=== PATIENT | female | born 1945 | race Caucasian/White ===

== ENCOUNTER 2016-10-09 23:24 | Inpatient (IN) | payer MEDICARE, OTHER ==
[~2016-10-09] VITALS: Ht 157.5 cm; Wt 67.2 kg
[~2016-10-09 23:24] MED LIST: AMLO5TAB22 PO; ASPI81 PO; ATOR40TA49 PO; CALC600T34 PO; CILO100T PO; GABA100C4 PO; GEMF600T PO; IPRA0.02 NEB; LEVA0.6316 NEB; LISI-363 PO; OMEP20TA OR; SPIRCAP INH; VENL-39 PO; VITA10004 PO; VITA20002 PO; WALKER STANDARD
[2016-10-09 23:27] VITALS: BP 122/74; PULSE 97; RESP 20; TEMP 98; O2SAT 94
[2016-10-10 00:15] VITALS: O2SAT 97
[2016-10-10] MEDS ORDERED: SODIUM CHLORIDE 0.9% FLUSH 10 ML FLUSH IVF PRN (00:15)
[2016-10-10] MEDS ORDERED: RESP: IPRATROPIUM 0.5 MG/2.5 ML NEB NEB ONE ×3 (00:15)
[2016-10-10] MEDS ORDERED: methylPREDNISolone SOD SUCC 125 MG/2 ML VIAL IVP ONE (00:15)
[2016-10-10] MEDS ORDERED: RESP: ALBUTEROL 2.5 MG/IPRATROPIUM 0.5 MG NEB (SCH) INH (00:15)
[2016-10-10 00:35] LABS: BASOPHIL # 0.1 TH/MM3 (0-0.2); BASOPHIL % 1.1 % (0.0-2.0); EOSINOPHIL # 0.8 TH/MM3 (0-0.4); EOSINOPHIL % 6.7 % (0.0-4.0); HEMATOCRIT 41.4 % (35.0-46.0); HEMO FLAGS DIFF FINAL; LYMPHOCYTE # 4.3 TH/MM3 (1.0-4.8); MEAN CELL VOLUME 90.3 FL (80.0-100.0); MEAN CORPUSCULAR HGB CONC 33.3 % (32.0-36.0); MONO % 9.8 % (0.0-8.0); NEUT % 44.4 % (16.0-70.0); PLATELET COUNT 350 TH/MM3 (150-450); RED BLOOD COUNT 4.59 MIL/MM3 (4.00-5.30); RED CELL DISTRIBUTION WIDTH 13.5 % (11.6-17.2); WHITE BLOOD COUNT 11.3 TH/MM3 (4.0-11.0)
--- NOTE | 2016-10-10 00:44 | RADRPT ---
EXAM DATE/TIME: 10/10/2016 00:36 [place] COMPARISON: CHEST SINGLE AP, March 24, 2016, 12:16. INDICATIONS : Shortness of breath. MEDICAL HISTORY : None. SURGICAL HISTORY : None. ENCOUNTER: Initial ACUITY: 1 day PAIN SCORE: 0/10 LOCATION: Bilateral chest FINDINGS: A single view of the chest demonstrates the lungs to be symmetrically aerated without evidence of mas s, infiltrate or effusion. The cardiomediastinal contours are unremarkable. Osseous structures are intact. CONCLUSION: No acute disease. David Godinez MD on October 10, 2016 at 0:43 Board Certified Radiologist. This report was verified electronically.
[2016-10-10 00:45] LABS: APTT (PATIENT) 27.7 SEC (24.3-30.1); PROTHROMBIN TIME - PATIENT 10.7 SEC (9.8-11.6)
[2016-10-10 00:49] LABS: ALT (GPT) 65 U/L (10-53); ANION GAP 8 MEQ/L (5-15); AST (GOT) 38 U/L (15-37); BICARBONATE 28.2 MEQ/L (21.0-32.0); BLOOD UREA NITROGEN 12 MG/DL (7-18); CHLORIDE 104 MEQ/L (98-107); GLOMERULAR FILTRATION RATE 74 ML/MIN (>89); POTASSIUM 3.6 MEQ/L (3.5-5.1); SODIUM (NA) 140 MEQ/L (136-145)
[2016-10-10 00:53] LABS: ALKALINE PHOSPHATASE 138 U/L (45-117); TOTAL BILIRUBIN ADULT 0.3 MG/DL (0.2-1.0)
[2016-10-10 00:57] LABS: CREATINE KINASE 92 U/L (26-192)
--- NOTE | 2016-10-10 01:28 | PD ---
HPI Chief Complaint: Respiratory Symptoms Time Seen by Provider: 00:10 Travel History International Travel<30 days: No Contact w/Intl Traveler<30days: No Traveled to known affect area: No History of Present Illness HPI Patient is a 71-year-old female who presents to emergency room with complaints of COPD exacerbation. Patient reports that she fell 2 days ago out of bed and landed her buttocks, she has a fracture to her lumbar spine. Patient reports that because she's had severe pain to her low back, she has exacerbation of COPD. Patient reports that she has shortness of breath and wheezing over the past 2 days. Denies cough or congestion, denies chest pain, no sick contacts. PFSH Past Medical History Cancer: No Cardiac Catheterization: Yes Cardiovascular Problems: Yes (STENTx1) High Cholesterol: Yes COPD: Yes Diabetes: No Diminished Hearing: No Diverticulitis: No Endocrine: No Gastrointestinal Disorders: Yes (GERD) GERD: Yes Genitourinary: Yes (RECENT UTI) Hepatitis: No Hiatal Hernia: No Hypertension: Yes Immune Disorder: No Medical other: Yes (FIBROMYALGIA) Musculoskeletal: Yes (NECK AND BACK PAIN ; FIBROMYALGIA) Neurologic: No Psychiatric: Yes Respiratory: Yes (COPD) Immunizations Current: Yes Thyroid Disease: No Tetanus Vaccination: Unknown Influenza Vaccination: Yes Menopausal: Yes Past Surgical History Abdominal Surgery: Yes (AGE 11 APPENDECTOMY) Body Medical Devices: CARDIAC STENT Cardiac Surgery: Yes (HEART CATH INSERTION STENT; RT LOWER EXTREMITY FEMOROPOPLITEAL BYPASS) Coronary Stent: Yes (X1 CIRC 1999) Gynecologic Surgery: Yes (ISRA SALPINGO-OOPHORECTOMY) Hysterectomy: Yes (PARTIAL) Oral Surgery: Yes (SINSUS SX) Other Surgery: Yes (fem-pop right 2001) Social History Alcohol Use: No (rare) Tobacco Use: No (1/2 PPD x 48+ years) Substance Use: No Allergies-Medications (Allergen,Severity, Reaction): Coded Allergies: Advair (Verified Allergy, Severe, 10/10/16) SHAKING ALL OVER; INCREASE BLOOD PRESSURE ; SEVERE REACTION Albuterol (Verified Allergy, Severe, SHAKES & HIGH BP, 10/10/16) SEVERE REACTION Quinolones (Verified Allergy, Severe, 10/10/16) SHAKES ALL OVER; ELEVATED BLOOD PRESSURE Serevent (Verified Allergy, Severe, 10/10/16) SHAKES ALL OVER; ELEVATES BLOOD PRESSURE; SEVERE REACTION Sulfa (Verified Allergy, Severe, HIVES, 10/10/16) HIVES; THROAT SWELLING; SEVERE REACTION Reported Meds & Prescriptions Reported Meds & Active Scripts Active Walker Standard (Device) Device 1 Ea Reported Gabapentin 100 Mg Cap 100 Mg PO DAILY Amlodipine Besylate 5 mg (Amlodipine Besylate) 5 Mg Tab 1 Tab PO DAILY Vitamin B-12 Cr (Cyanocobalamin) 1 000 Tab 1 Tab PO DAILY Xopenex (Levalbuterol HCl) 0.63 Mg Neb 0.63 Mg NEB DIRECTED Ipratropium Gustine Patricia 1 Amp NEB DIRECTED NEBULIZER NEEDED ; IPRATROPIUM BROMIDE WITH XOPENAX 0.63% Spiriva Handihaler (Tiotropium Gustine) 18 Mcg Cap 1 Dose INH DAILY DO NOT SWALLOW CAPSULES Cilostazol 100 Mg Tab 100 Mg PO DAILY Lipitor 40 Mg Tab (Atorvastatin Calcium) 40 Mg Tab 40 Mg PO DAILY Vitamin D-3 (Cholecalciferol) 2 000 Tab 2,000 Unit PO DAILY Gemfibrozil 600 Mg Tab 600 Mg PO DAILY Lisinopril 20 mg (Lisinopril) 20 Mg Tab 20 Mg PO DAILY Venlafaxine Hcl Er (Venlafaxine HCl) 75 Mg Tab 150 Mg PO DAILY Calcium 600 Mg Tab 600 Mg PO DAILY Omeprazole 20 mg (Omeprazole) 20 Mg Tab 20 Mg OR DAILY Aspirin 81 Mg Tab 81 Mg PO DAILY Review of Systems General / Constitutional: No: Fever Eyes: No: Visual changes HENT: No: Headaches Cardiovascular: No: Chest Pain or Discomfort Respiratory: Positive: Cough, Shortness of Breath, Wheezing Gastrointestinal: No: Abdominal Pain Genitourinary: No: Dysuria Musculoskeletal: No: Pain Skin: No Rash Neurologic: No: Weakness Psychiatric: No: Depression Endocrine: No: Polydipsia Hematologic/Lymphatic: No: Easy Bruising Physical Exam Narrative GENERAL: Moderate distress SKIN: Warm and dry. HEAD: Atraumatic. Normocephalic. EYES: Pupils equal and round. No scleral icterus. No injection or drainage. ENT: No nasal bleeding or discharge. Mucous membranes pink and moist. NECK: Trachea midline. No JVD. CARDIOVASCULAR: Regular rate and rhythm. No murmur appreciated. RESPIRATORY: Positive accessory muscle use. Patient with diffuse wheezing on exam GASTROINTESTINAL: Abdomen soft, non-tender, nondistended. Hepatic and splenic margins not palpable. MUSCULOSKELETAL: No obvious deformities. No clubbing. No cyanosis. No edema. NEUROLOGICAL: Awake and alert. No obvious cranial nerve deficits. Motor grossly within normal limits. Normal speech. PSYCHIATRIC: Appropriate mood and affect; insight and judgment normal. Data Data Last Documented VS Vital Signs Date Time Temp Pulse Resp B/P Pulse Ox O2 Delivery O2 Flow Rate FiO2 10/10/16 00:15 97 Nasal Cannula 2 10/09/16 23:27 98.0 97 20 122/74 Orders Complete Blood Count With Diff (10/10/16:11) Comprehensive Metabolic Panel (10/10/16:11) B-Type Natriuretic Peptide (10/10/16:11) Act Partial Throm Time (Ptt) (10/10/16:) Prothrombin Time / Inr (Pt) (10/10/16:) Magnesium (Mg) (10/10/16:11) Ckmb (Isoenzyme) Profile (10/10/16:11) Troponin I (10/10/16:) Arterial Blood Gas (Abg) (10/10/16:) Urinalysis - C+S If Indicated (10/10/16:11) Influenzae A/B Antigen (10/10/16:11) Blood Culture (10/10/16:11) Iv Access Insert/Monitor (10/10/16:11) Electrocardiogram (10/10/16:11) Ecg Monitoring (10/10/16:11) Oximetry (10/10/16:11) Oxygen Administration (10/10/16:11) Chest, Single Ap (10/10/16:11) Sodium Chloride 0.9% Flush (Ns Flush) (10/10/16:15) Methylprednisolone So Succ Inj (Solumedr (10/10/16 00:15) Albuterol-Ipratropium Neb (Duoneb Neb) (10/10/16 00:15) Ipratropium Neb (Atrovent Neb) (10/10/16 00:15) Ipratropium Neb (Atrovent Neb) (10/10/16 00:15) Ipratropium Neb (Atrovent Neb) (10/10/16 00:15) Lactic Acid Sepsis Protocol (3/23/17 00:17) Labs Laboratory Tests Test 10/10/16 00:15 White Blood Count 11.3 TH/MM3 Red Blood Count 4.59 MIL/MM3 Hemoglobin 13.8 GM/DL Hematocrit 41.4 % Mean Corpuscular Volume 90.3 FL Mean Corpuscular Hemoglobin 30.0 PG Mean Corpuscular Hemoglobin 33.3 % Concent Red Cell Distribution Width 13.5 % Platelet Count 350 TH/MM3 Mean Platelet Volume 7.5 FL Neutrophils (%) (Auto) 44.4 % Lymphocytes (%) (Auto) 38.0 % Monocytes (%) (Auto) 9.8 % Eosinophils (%) (Auto) 6.7 % Basophils (%) (Auto) 1.1 % Neutrophils # (Auto) 5.0 TH/MM3 Lymphocytes # (Auto) 4.3 TH/MM3 Monocytes # (Auto) 1.1 TH/MM3 Eosinophils # (Auto) 0.8 TH/MM3 Basophils # (Auto) 0.1 TH/MM3 CBC Comment DIFF FINAL Differential Comment Prothrombin Time 10.7 SEC Prothromb Time International 1.0 RATIO Ratio Activated Partial 27.7 SEC Thromboplast Time Sodium Level 140 MEQ/L Potassium Level 3.6 MEQ/L Chloride Level 104 MEQ/L Carbon Dioxide Level 28.2 MEQ/L Anion Gap 8 MEQ/L Blood Urea Nitrogen 12 MG/DL Creatinine 0.77 MG/DL Estimat Glomerular Filtration 74 ML/MIN Rate Random Glucose 81 MG/DL Lactic Acid Level 2.0 mmol/L Calcium Level 9.8 MG/DL Magnesium Level 2.0 MG/DL Total Bilirubin 0.3 MG/DL Aspartate Amino Transf 38 U/L (AST/SGOT) Alanine Aminotransferase 65 U/L (ALT/SGPT) Alkaline Phosphatase 138 U/L Total Creatine Kinase 92 U/L Troponin I LESS THAN 0.02 NG/ML B-Type Natriuretic Peptide 8 PG/ML Total Protein 8.2 GM/DL Albumin 4.0 GM/DL MDM Medical Decision Making Medical Screen Exam Complete: Yes Emergency Medical Condition: Yes Interpretation(s) EKG at 0023: NSR at 88bpm, qt/qtc: 353/399, no acute st or t wave changes Vital Signs Date Time Temp Pulse Resp B/P Pulse Ox O2 Delivery O2 Flow Rate FiO2 10/10/16 00:15 97 Nasal Cannula 2 10/10/16 00:13 98 Nasal Cannula 2 10/09/16 23:27 98.0 97 20 122/74 94 Room Air Differential Diagnosis COPD exacerbation, pneumonia, influenza, pneumothorax, arrhythmia, ACS Narrative Course Patient is a 71-year-old female who presents to emergency room with complaints of COPD exacerbation over the past 2 days. Patient was hypoxic upon presentation to emergency room with a pulse ox of 94% with increased work of breathing. She has an allergy to albuterol, patient was given 3 Atrovent and reports that she is feeling better at this time. X-ray chest ordered to evaluate for possible pneumonia. X-ray chest with no obvious pneumonia or infiltrates. EKG benign with no ST or T-wave changes. CBC & BMP Diagram 10/10/16 00:15 Last Impressions Chest X-Ray 10/10/16 0011 Signed Impressions: Service Date/Time: September 00:36 - CONCLUSION: No acute disease. David Godinez MD Microbiology Date/Time Procedure Status Source Growth 10/10/16 00:10 Aerobic Blood Culture Received Blood Peripheral Pending 10/10/16 00:10 Anaerobic Blood Culture Received Blood Peripheral Pending 10/10/16 00:15 Aerobic Blood Culture Received Blood Peripheral Pending 10/10/16 00:15 Anaerobic Blood Culture Received Blood Peripheral Pending 10/10/16 00:49 Influenza Types A,B Antigen (BRIANA) Received Nasal Aspirate Pending Blood cultures pending, lactate 2.0, patient with COPD exacerbation, will obs for serial breathing treatments as well as for IV steroids. Physician Communication Physician Communication Discussed case with Jared BARNES who accepts pt to service under Dr. [place] Diagnosis Primary Impression: Hypoxia Additional Impression: COPD exacerbation Admitting Information Admitting Physician Requests: Ryanne Gillespie DO Oct 10, 2016 01:28
[2016-10-10 01:31] LABS: BLOOD GAS BASE EXCESS -1.7 mmol/L (-2-2); BLOOD GAS CARBOXYHEMOGLOBIN 1.2 % (0-4); BLOOD GAS HCO3 22 mmol/L (22-26); BLOOD GAS METHEMOGLOBIN 0.8 % (0-2); BLOOD GAS O2 HGB SATURATION 93 % (90-100); BLOOD GAS OXYGEN CONTENT 18.1 Vol % (12.0-20.0); BLOOD GAS PCO2 36 mmHg (38-42); BLOOD GAS PO2 72 mmHg (61-120); BLOOD GAS TOTAL HGB 13.8 G/DL (12.0-16.0); TEMP CORR TO 98.6
[2016-10-10 01:32] LABS: CRITICAL VALUE NO; FIO2 21 %; NUMBER OF ARTERIAL PUNCTURES 1; OXYGEN DEVICE RA
[2016-10-10 01:33] LABS: DRAW SITE RT RADIAL; STAT YES; ULNAR PULSE PRESENT
[2016-10-10] MEDS ORDERED: SODIUM CHLORIDE 0.9% FLUSH 10 ML FLUSH IV FLUSH PRN (02:15)
[2016-10-10] MEDS ORDERED: RESP: IPRATROPIUM 0.5 MG/2.5 ML NEB INH PRN (02:15)
[2016-10-10] MEDS ORDERED: RESP: ALBUTEROL 2.5 MG/3 ML NEB (PRN) INH (02:15)
[2016-10-10] MEDS: RESP: IPRATROPIUM 0.5 MG/2.5 ML NEB INH SCH ×2 (03:49→10:10)
[2016-10-10] MEDS: ACETAMINOPHEN 325 MG TAB PO PRN (03:57)
[2016-10-10 04:30] VITALS: BP 113/66; PULSE 97; PULSE 98; RESP 24; O2SAT 94
[2016-10-10] MEDS ORDERED: GABA100C4 PO (05:55)
[2016-10-10] MEDS ORDERED: LIPI40TA PO (05:55)
[2016-10-10] MEDS ORDERED: VENL75TA PO (05:55)
[2016-10-10] MEDS ORDERED: CYAN100015 BUCCAL (05:55)
[2016-10-10] MEDS ORDERED: ASPI81CH CHEW (05:55)
[2016-10-10] MEDS ORDERED: CALC500T37 PO (05:55)
[2016-10-10] MEDS ORDERED: CILO100T PO (05:55)
[2016-10-10] MEDS ORDERED: CHOL20005 PO (05:55)
[2016-10-10] MEDS ORDERED: GEMF600T PO (05:55)
[2016-10-10] MEDS ORDERED: LISI-515 PO (05:55)
[2016-10-10] MEDS ORDERED: AMLO5TAB2 PO (05:55)
[2016-10-10] MEDS ORDERED: OMEP20TA PO (05:55)
[2016-10-10] MEDS ORDERED: methylPREDNISolone SOD SUCC 125 MG/2 ML VIAL IVP SCH (06:00)
[2016-10-10 08:00] VITALS: BP 118/78; PULSE 115; RESP 22; O2SAT 95
--- NOTE | 2016-10-10 10:06 | HHI.HP ---
[facility] Jared Squires M.D. Admission Diagnosis COPD Exacerbation Diagnoses: Travel History International Travel<30 Days: No Contact w/Intl Traveler <30 Da: No Traveled to Known Affected Are: No Past Family Social History Allergies: Coded Allergies: Advair (Verified Allergy, Severe, 10/10/16) SHAKING ALL OVER; INCREASE BLOOD PRESSURE ; SEVERE REACTION Albuterol (Verified Allergy, Severe, SHAKES & HIGH BP, 10/10/16) SEVERE REACTION Quinolones (Verified Allergy, Severe, 10/10/16) SHAKES ALL OVER; ELEVATED BLOOD PRESSURE Serevent (Verified Allergy, Severe, 10/10/16) SHAKES ALL OVER; ELEVATES BLOOD PRESSURE; SEVERE REACTION Sulfa (Verified Allergy, Severe, HIVES, 10/10/16) HIVES; THROAT SWELLING; SEVERE REACTION Physical Exam Vital Signs Vital Signs Date Time Temp Pulse Resp B/P Pulse Ox O2 Delivery O2 Flow Rate FiO2 10/10/16 08:00 115 22 118/78 95 Room Air 10/10/16 05:03 16 10/10/16 04:30 98 24 113/66 94 Room Air 10/10/16 00:15 97 Nasal Cannula 2 10/10/16 00:13 98 Nasal Cannula 2 10/09/16 23:27 98.0 97 20 122/74 94 Room Air Physical Exam GENERAL: This is a well-nourished, well-developed patient, in no apparent distress. SKIN: No rashes, ecchymoses or lesions. Cool and dry. HEAD: Atraumatic. Normocephalic. No temporal or scalp tenderness. EYES: Pupils equal round and reactive. Extraocular motions intact. No scleral icterus. No injection or drainage. ENT: Nose without bleeding, purulent drainage or septal hematoma. Throat without erythema, tonsillar hypertrophy or exudate. Uvula midline. Airway patent. NECK: Trachea midline. No JVD or lymphadenopathy. Supple, nontender, no meningeal signs. CARDIOVASCULAR: Regular rate and rhythm without murmurs, gallops, or rubs. RESPIRATORY: Clear to auscultation. Breath sounds equal bilaterally. No wheezes , rales, or rhonchi. GASTROINTESTINAL: Abdomen soft, non-tender, nondistended. No hepato-splenomegaly , or palpable masses. No guarding. MUSCULOSKELETAL: Extremities without clubbing, cyanosis, or edema. No joint tenderness, effusion, or edema noted. No calf tenderness. Negative Homans sign bilaterally. NEUROLOGICAL: Awake and alert. Cranial nerves II through XII intact. Motor and sensory grossly within normal limits. Five out of 5 muscle strength in all muscle groups. Normal speech. Laboratory Laboratory Tests Test 10/10/16 10/10/16 00:15 01:05 White Blood Count 11.3 Red Blood Count 4.59 Hemoglobin 13.8 Hematocrit 41.4 Mean Corpuscular Volume 90.3 Mean Corpuscular Hemoglobin 30.0 Mean Corpuscular Hemoglobin 33.3 Concent Red Cell Distribution Width 13.5 Platelet Count 350 Mean Platelet Volume 7.5 Neutrophils (%) (Auto) 44.4 Lymphocytes (%) (Auto) 38.0 Monocytes (%) (Auto) 9.8 Eosinophils (%) (Auto) 6.7 Basophils (%) (Auto) 1.1 Neutrophils # (Auto) 5.0 Lymphocytes # (Auto) 4.3 Monocytes # (Auto) 1.1 Eosinophils # (Auto) 0.8 Basophils # (Auto) 0.1 CBC Comment DIFF FINAL Differential Comment Prothrombin Time 10.7 Prothromb Time International 1.0 Ratio Activated Partial 27.7 Thromboplast Time Sodium Level 140 Potassium Level 3.6 Chloride Level 104 Carbon Dioxide Level 28.2 Anion Gap 8 Blood Urea Nitrogen 12 Creatinine 0.77 Estimat Glomerular Filtration 74 Rate Random Glucose 81 Lactic Acid Level 2.0 Calcium Level 9.8 Magnesium Level 2.0 Total Bilirubin 0.3 Aspartate Amino Transf 38 (AST/SGOT) Alanine Aminotransferase 65 (ALT/SGPT) Alkaline Phosphatase 138 Total Creatine Kinase 92 Troponin I LESS THAN 0.02 B-Type Natriuretic Peptide 8 Total Protein 8.2 Albumin 4.0 Blood Gas Puncture Site RT RADIAL Blood Gas Patient Temperature 98.6 Blood Gas HCO3 22 Blood Gas Base Excess -1.7 Blood Gas Oxygen Saturation 93 Arterial Blood pH 7.41 Arterial Blood Partial 36 Pressure CO2 Arterial Blood Partial 72 Pressure O2 Arterial Blood Oxygen Content 18.1 Arterial Blood 1.2 Carboxyhemoglobin Arterial Blood Methemoglobin 0.8 Blood Gas Hemoglobin 13.8 Oxygen Delivery Device RA Blood Gas Inspired Oxygen 21 Date/Time Procedure Status Source Growth 10/10/16 00:49 Influenza Types A,B Antigen (BRIANA) - Final Complete Nasal Aspirate NEGATIVE FOR FLU A AND B ANTIGEN.... 10/10/16 00:15 Aerobic Blood Culture Received Blood Peripheral Pending 10/10/16 00:15 Anaerobic Blood Culture Received Blood Peripheral Pending Result Diagram: 10/10/16 0015 10/10/16 0015 Physician Certification Order for Inpatient Services The services are ordered in accordance with Medicare regulations or non- Medicare payer requirements, as applicable. In the case of services not specified as inpatient-only, they are appropriately provided as inpatient services in accordance with the 2-midnight benchmark. days is the estimated time the patient will need to remain in the hospital, assuming treatment plan goals are met and no additional complications. Brandi Kong Oct 10, 2016 10:06
[2016-10-10] MEDS ORDERED: KETOROLAC TROMETHAMINE 30 MG/ML (IVP) VIAL IV PUSH PRN (10:15)
[2016-10-10] MEDS ORDERED: PILL SPLITTER OTHER PRN (10:15)
--- NOTE | 2016-10-10 10:21 | HHI.HP ---
HPI Service [facility] Primary Care Physician Jared Squires M.D. Admission Diagnosis COPD Exacerbation Diagnoses: Chief Complaint: sob, intractable back pain (Brandi Kong) Travel History International Travel<30 Days: No Contact w/Intl Traveler <30 Da: No Traveled to Known Affected Are: No (Brandi Kong) History of Present Illness This a 71-year-old female with history of coronary artery disease stents, COPD, GERD, fibromyalgia, osteopenia. Patient presented to the emergency room complaining of shortness of breath. Indicates that a couple of days ago she had a fall, she fell out of her bed and landed on her buttocks. She went to primary care physician and had a x-ray that showed an L1 fracture. She was referred her to see Dr. Che however he is no longer practicing in the area therefore she was referred to Dr. Chris Castillo and was supposed to have a standing MRI of the lumbar spine. She's had intractable pain to the lower back , associated with muscle spasms. She is also had pain radiating to the front of her thighs with some numbness or tingling to the bottom of her feet. She denies any loss of bowel or bladder function. As her back pain increased, she started to have increasing shortness of breath and wheezing. She tried her nebulizer at home without any results. She has been coughing, nonproductive and has had increased wheezing. No fever, no chills. She no longer smokes. She's not oxygen dependent. Patient came to the emergency room for further evaluation. Patient was evaluated in the emergency room, laboratory workup was essentially unremarkable except for mild elevation of liver enzymes. Patient is on statins, denies any history of drug use, no liver disease. She was afebrile. Sats were 94% on room air. Chest x-ray did not reveal any acute findings. Patient was noted hypoxic on presentation, she had increased work of breathing. She has an allergy to albuterol therefore she was given 3 Atrovent and reported feeling better. Patient is examined in the emergency room, at this time her only complaint is low back pain. Shortness of breath has improved. Patient is admitted for further evaluation and treatment. (Brandi Kong) Review of Systems Constitutional: DENIES: Diaphoretic episodes, Fatigue, Fever, Weight gain, Weight loss, Chills, Dizziness, Change in appetite, Night Sweats Endocrine: DENIES: Abnorml menstrual pattern, Heat/cold intolerance, Polydipsia , Polyuria, Polyphagia Eyes: DENIES: Blurred vision, Diplopia, Eye inflammation, Eye pain, Vision loss , Photosensitivity, Double Vision Ears, nose, mouth, throat: DENIES: Tinnitus, Hearing loss, Vertigo, Nasal discharge, Oral lesions, Throat pain, Hoarseness, Ear Pain, Running Nose, Epistaxis, Sinus Pain, Toothache, Odynophagia Respiratory: COMPLAINS OF: Cough, Wheezing, Sputum production, Shortness of breath, DENIES: Apneas, Snoring, Hemoptysis Cardiovascular: DENIES: Chest pain, Palpitations, Syncope, Dyspnea on Exertion , PND, Lower Extremity Edema, Orthopnea, Claudication Gastrointestinal: DENIES: Abdominal pain, Black stools, Bloody stools, Constipation, Diarrhea, Nausea, Vomiting, Difficulty Swallowing, Anorexia Genitourinary: DENIES: Abnormal vaginal bleeding, Dysmenorrhea, Dyspareunia, Sexual dysfunction, Urinary frequency, Urinary incontinence, Urgency, Hematuria , Dysuria, Nocturia, Vaginal discharge Musculoskeletal: COMPLAINS OF: Back pain, DENIES: Joint pain, Muscle aches, Stiffness, Joint Swelling, Neck pain Integumentary: DENIES: Abnormal pigmentation, Pruritus, Rash, Nail changes, Breast masses, Breast skin changes, Nipple discharge Hematologic/lymphatic: DENIES: Bruising, Lymphadenopathy Immunologic/allergic: DENIES: Eczema, Urticaria Neurologic: COMPLAINS OF: Paresthesias, DENIES: Abnormal gait, Headache, Localized weakness, Seizures, Speech Problems, Tremor, Poor Balance Psychiatric: DENIES: Anxiety, Confusion, Mood changes, Depression, Hallucinations, Agitation, Suicidal Ideation, Homicidal Ideation, Delusions ( Brandi Kong) Past Family Social History Past Medical History 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 Squires Per EMR Hyperlipidemia Fibromyalgia Bilateral patellar fracture March 2016, treated nonoperatively. Past Surgical History 1999- Cardiac stent- circumflex R fem pop bypass Partial hysterectomy Sinus surgery Reported Medications Reported Meds & Active Scripts Active Reported Effexor (Venlafaxine HCl) 75 Mg Tab 150 Mg PO DAILY Omeprazole 20 Mg Tab 20 Mg PO DAILY Lisinopril 20 Mg Tab 20 Mg PO DAILY Gemfibrozil 600 Mg Tab 600 Mg PO BIDAC Take 30 minutes prior to breakfast and dinner. Gabapentin 100 Mg Cap 100 Mg PO DAILY B-12 (Cyanocobalamin) 1,000 Mcg Lozg 1,000 Mcg BUCCAL DAILY Cilostazol 100 Mg Tab 100 Mg PO BID D3 Super Strength (Cholecalciferol) 2,000 Unit Cap 2,000 Units PO DAILY Calcium Ascorbate 500 Mg Tab 600 Mg PO Lipitor (Atorvastatin Calcium) 40 Mg Tab 40 Mg PO HS Aspirin 81 Mg Chew 81 Mg CHEW DAILY Amlodipine (Amlodipine Besylate) 5 Mg Tab 5 Mg PO DAILY (Brandi Kong) Allergies: Coded Allergies: Advair (Verified Allergy, Severe, 10/10/16) SHAKING ALL OVER; INCREASE BLOOD PRESSURE ; SEVERE REACTION Albuterol (Verified Allergy, Severe, SHAKES & HIGH BP, 10/10/16) SEVERE REACTION Quinolones (Verified Allergy, Severe, 10/10/16) SHAKES ALL OVER; ELEVATED BLOOD PRESSURE Serevent (Verified Allergy, Severe, 10/10/16) SHAKES ALL OVER; ELEVATES BLOOD PRESSURE; SEVERE REACTION Sulfa (Verified Allergy, Severe, HIVES, 10/10/16) HIVES; THROAT SWELLING; SEVERE REACTION Active Ordered Medications Inpatient Medications Acetaminophen (Tylenol) 650 mg Q6H PRN PO PAIN Last administered on 10/10/16t 03:57; Start 10/10/16 at 04:00 Albuterol Sulfate (Albuterol Neb) 2.5 mg Q2HR NEB PRN INH SHORTNESS OF BREATH; Start 10/10/16 at 02:15; Status UNV Albuterol/ Ipratropium (Duoneb Neb) 1 ampule Q15M INH ; Start 10/10/16 at 00:15 ; Stop 10/10/16 at 00:16; Status DC Amlodipine Besylate (Norvasc) 5 mg DAILY PO ; Start 10/11/16 at 09:00 Aspirin (Aspirin Chew) 81 mg DAILY CHEW ; Start 10/11/16 at 09:00 Cholecalciferol (Vitamin D3) 2,000 units DAILY PO ; Start 10/11/16 at 09:00 Cilostazol (Pletal) 100 mg BID PO ; Start 10/10/16 at 21:00 Cyclobenzaprine HCl (Flexeril) 5 mg Q8HR PO ; Start 10/10/16 at 10:15 Enoxaparin Sodium (Lovenox Inj) 40 mg DAILY SQ ; Start 10/10/16 at 09:00 Gabapentin (Neurontin) 100 mg DAILY PO ; Start 10/11/16 at 09:00 Gemfibrozil (Lopid) 600 mg BIDAC PO ; Start 10/10/16 at 16:00 Ipratropium [place] (Atrovent Neb) 0.5 mg Q6HR NEB PRN INH SHORTNESS OF BREATH ; Start 10/10/16 at 02:15 Ketorolac Tromethamine (Toradol Inj) 15 mg Q6H PRN IV PUSH PAIN SCALE 3 TO 6; Start 10/10/16 at 10:15; Status UNV Lisinopril (Prinivil) 20 mg DAILY PO ; Start 10/11/16 at 09:00 Methylprednisolone Sodium Succinate (SoluMEDROL INJ) 40 mg BID IVP ; Start 10/10 at 21:00; Status UNV Miscellaneous (Pill Splitter) 1 ea UNSCH PRN OTHER SEE LABEL COMMENTS; Start at 10:15 Non-Formulary Medication 150 mg DAILY PO ; Start 10/11/16 at 09:00; Status UNV Pantoprazole Sodium (Protonix) 20 mg DAILY PO ; Start 10/11/16 at 09:00 Sodium Chloride (NS Flush) 2 ml UNSCH PRN IV FLUSH FLUSH AFTER USING IV ACCESS ; Start 10/10/16 at 02:15 Family History Cancer- breast cancer Social History Patient lives with her daughter and her grandson Smoking- quit 4 yrs ago, smoked 1 ppd for 50 years Drinking- none reported Drugs- none reported (Brandi Kong) Physical Exam Vital Signs Vital Signs Date Time Temp Pulse Resp B/P Pulse Ox O2 Delivery O2 Flow Rate FiO2 10/10/16 08:00 115 22 118/78 95 Room Air 10/10/16 05:03 16 10/10/16 04:30 98 24 113/66 94 Room Air 10/10/16 00:15 97 Nasal Cannula 2 10/10/16 00:13 98 Nasal Cannula 2 10/09/16 23:27 98.0 97 20 122/74 94 Room Air Physical Exam GENERAL: This is a well-nourished, well-developed patient, in no apparent distress. SKIN: No rashes, ecchymoses or lesions. Cool and dry. HEAD: Atraumatic. Normocephalic. No temporal or scalp tenderness. EYES: Pupils equal round and reactive. Extraocular motions intact. No scleral icterus. No injection or drainage. ENT: Nose without bleeding, purulent drainage or septal hematoma. Throat without erythema, tonsillar hypertrophy or exudate. Uvula midline. Airway patent. NECK: Trachea midline. No JVD or lymphadenopathy. Supple, nontender, no meningeal signs. CARDIOVASCULAR: Regular rate and rhythm without murmurs, gallops, or rubs. RESPIRATORY: Diminished at bases GASTROINTESTINAL: Abdomen soft, non-tender, nondistended. No hepato-splenomegaly , or palpable masses. No guarding. MUSCULOSKELETAL: Complains of pain to low back pain on palpation. No deformities noted. Extremities without clubbing, cyanosis, or edema. No joint tenderness, effusion, or edema noted. No calf tenderness. Negative Homans sign bilaterally. NEUROLOGICAL: Awake and alert. Cranial nerves II through XII intact. Motor and sensory grossly within normal limits. Five out of 5 muscle strength in all muscle groups. Normal speech. Laboratory Laboratory Tests Test 10/10/16 10/10/16 00:15 01:05 White Blood Count 11.3 Red Blood Count 4.59 Hemoglobin 13.8 Hematocrit 41.4 Mean Corpuscular Volume 90.3 Mean Corpuscular Hemoglobin 30.0 Mean Corpuscular Hemoglobin 33.3 Concent Red Cell Distribution Width 13.5 Platelet Count 350 Mean Platelet Volume 7.5 Neutrophils (%) (Auto) 44.4 Lymphocytes (%) (Auto) 38.0 Monocytes (%) (Auto) 9.8 Eosinophils (%) (Auto) 6.7 Basophils (%) (Auto) 1.1 Neutrophils # (Auto) 5.0 Lymphocytes # (Auto) 4.3 Monocytes # (Auto) 1.1 Eosinophils # (Auto) 0.8 Basophils # (Auto) 0.1 CBC Comment DIFF FINAL Differential Comment Prothrombin Time 10.7 Prothromb Time International 1.0 Ratio Activated Partial 27.7 Thromboplast Time Sodium Level 140 Potassium Level 3.6 Chloride Level 104 Carbon Dioxide Level 28.2 Anion Gap 8 Blood Urea Nitrogen 12 Creatinine 0.77 Estimat Glomerular Filtration 74 Rate Random Glucose 81 Lactic Acid Level 2.0 Calcium Level 9.8 Magnesium Level 2.0 Total Bilirubin 0.3 Aspartate Amino Transf 38 (AST/SGOT) Alanine Aminotransferase 65 (ALT/SGPT) Alkaline Phosphatase 138 Total Creatine Kinase 92 Troponin I LESS THAN 0.02 B-Type Natriuretic Peptide 8 Total Protein 8.2 Albumin 4.0 Blood Gas Puncture Site RT RADIAL Blood Gas Patient Temperature 98.6 Blood Gas HCO3 22 Blood Gas Base Excess -1.7 Blood Gas Oxygen Saturation 93 Arterial Blood pH 7.41 Arterial Blood Partial 36 Pressure CO2 Arterial Blood Partial 72 Pressure O2 Arterial Blood Oxygen Content 18.1 Arterial Blood 1.2 Carboxyhemoglobin Arterial Blood Methemoglobin 0.8 Blood Gas Hemoglobin 13.8 Oxygen Delivery Device RA Blood Gas Inspired Oxygen 21 Date/Time Procedure Status Source Growth 10/10/16 00:49 Influenza Types A,B Antigen (BRIANA) - Final Complete Nasal Aspirate NEGATIVE FOR FLU A AND B ANTIGEN.... 10/10/16 00:15 Aerobic Blood Culture Received Blood Peripheral Pending 10/10/16 00:15 Anaerobic Blood Culture Received Blood Peripheral Pending (Brandi Kong) Result Diagram: 10/10/16 0015 10/10/1614 Imaging Last Impressions Chest X-Ray 10/10/1610 Signed Impressions: Service Date/Time: September 00:36 - CONCLUSION: No acute disease. David Godinez MD (Brandi Kong) Assessment and Plan Problem List: (1) COPD exacerbation (2) Intractable back pain (3) HTN (hypertension) (4) CAD (coronary artery disease) (5) Elevated liver enzymes (6) Fibromyalgia (7) PVD (peripheral vascular disease) Assessment and Plan Admit to Dr. Garza 71-year-old female with prior history of tobacco abuse and COPD, presented to emergency room with increasing shortness of breath. Found in COPD exacerbation , was noted hypoxic with increased work of breathing. Also reported low back pain from recent fall, had imaging studies as outpatient positive for L1 fracture. COPD exacerbation Continue with DuoNeb's, Atrovent as patient is allergic to albuterol. -Solu-Medrol 40 mg IV daily 12 Intractable low back pain, recently fell, had imaging studies as outpatient showing L1 fracture Consul Dr. Chris Castillo -We will order Flexeril 5 mg by mouth before every meal Toradol 15 mg every 6 when necessary Tramadol as needed -Physical therapy for evaluation and treatment Elevated liver enzymes, etiology unclear Hold statins LFTs in the morning Hypertension, stable -Continue home meds Peripheral vascular disease, stable -Continue home meds, on Pletal Fibromyalgia, -Continue home medications Lovenox for DVT prophylaxis Home medications reviewed, initiated as indicated Plan of care has been discussed with the patient, attending and registered nurse. Further management of the patient will be dependent on the hospital course This patient was seen by myself and Dr. 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
[2016-10-10 10:30] VITALS: BP 125/75; PULSE 106; RESP 20; TEMP 97.8; O2SAT 96
[2016-10-10] MEDS: CYCLOBENZAPRINE HCL 10 MG TAB PO SCH ×3 (10:52→21:50)
[2016-10-10] MEDS: ENOXAPARIN SODIUM 40 MG/0.4 ML SYRINGE SQ SCH (10:53)
[2016-10-10] MEDS: SODIUM CHLORIDE 0.9% FLUSH 10 ML FLUSH IV FLUSH SCH ×2 (10:53→19:53)
--- NOTE | 2016-10-10 14:36 | EKG ---
Date Performed: 10/10/2016 Time Performed: 00:23:08 PTAGE: 71 years EKG: Sinus rhythm NORMAL ECG Compared to prior tracing no significant change PREVIOUS TRACING : 03/22/2016 12.46 DOCTOR: Chele Hoskins Interpretating Date/Time 10/10/2016 14:35:54
[2016-10-10] MEDS: traMADol HCL 50 MG TAB PO PRN ×2 (14:40→21:50)
[2016-10-10 15:55] VITALS: BP 118/78; PULSE 116; RESP 18; TEMP 98.8; O2SAT 93
[2016-10-10] MEDS: GEMFIBROZIL 600 MG TAB PO SCH (17:01)
[2016-10-10] MEDS: amLODIPine BESYLATE 5 MG TAB PO SCH (19:51)
[2016-10-10] MEDS: CILOSTAZOL 100 MG TAB PO SCH (19:51)
[2016-10-10] MEDS: GABAPENTIN 100 MG CAP PO SCH (19:51)
[2016-10-10] MEDS: PANTOPRAZOLE SOD 20 MG DELAYED RELEASE TAB PO SCH (19:51)
[2016-10-10] MEDS: ASPIRIN 81 MG CHEW TAB CHEW SCH (19:51)
[2016-10-10] MEDS: CHOLECALCIFEROL (VIT D3) 1000 UNIT TAB PO SCH (19:52)
[2016-10-10] MEDS: methylPREDNISolone SOD SUCC 40 MG/1 ML VIAL IV PUSH SCH (19:52)
[2016-10-10] MEDS: LISINOPRIL 20 MG TAB PO SCH (19:52)
[2016-10-10] MEDS: VENLAFAXINE HCL XR 75 MG CAP PO SCH (19:52)
[2016-10-10 20:00] VITALS: BP 135/81; PULSE 118; RESP 18; TEMP 97.5; O2SAT 93
--- NOTE | 2016-10-10 22:06 | PD.CONS ---
cc: Terrell Bardales MD HPI Service [facility] Sur[facility] Consult Requested By Dr. Garza Reason for Consult Intractable back pain with L1 compression fracture by history. Primary Care Physician Jared Squires M.D. Admission Diagnosis COPD Exacerbation Diagnoses: (1) COPD exacerbation (2) Traumatic compression fracture of L1 lumbar vertebra (3) Mood disorder (4) CAD (coronary artery disease) (5) HTN (hypertension) (6) Intractable back pain (7) Fibromyalgia (8) PVD (peripheral vascular disease) Chief Complaint: Back pain, difficulty breathing History of Present Illness This a 71-year-old female with history of coronary artery disease stents, COPD, GERD, fibromyalgia, osteopenia. Patient presented to the emergency room complaining of shortness of breath. Indicates that a couple of days ago she had a fall, she fell out of her bed and landed on her buttocks. She went to primary care physician and had a x-ray that showed an L1 fracture. She was referred her to see Dr. Che however he is no longer practicing in the area therefore she was referred to Dr. Chris Castillo and was supposed to have a standing MRI of the lumbar spine. She's had intractable pain to the lower back , associated with muscle spasms. She is also had pain radiating to the front of her thighs with some numbness or tingling to the bottom of her feet. She denies any loss of bowel or bladder function. As her back pain increased, she started to have increasing shortness of breath and wheezing. She tried her nebulizer at home without any results. She has been coughing, nonproductive and has had increased wheezing. No fever, no chills. She no longer smokes. She's not oxygen dependent. Patient came to the emergency room for further evaluation. Patient was evaluated in the emergency room, laboratory workup was essentially unremarkable except for mild elevation of liver enzymes. Patient is on statins, denies any history of drug use, no liver disease. She was afebrile. Sats were 94% on room air. Chest x-ray did not reveal any acute findings. Patient was noted hypoxic on presentation, she had increased work of breathing. She has an allergy to albuterol therefore she was given 3 Atrovent and reported feeling better. Patient is examined in the emergency room, at this time her only complaint is low back pain. Shortness of breath has improved. Patient is admitted for further evaluation and treatment. Because of the pending orthopedic appointment, Dr. Castillo was consulted. He is not available at this time and it was deferred to the on-call orthopedist. Since her admission the patient has had improvement with regards to her overall symptomatology with pain medication. He has been ambulatory in the hallway and going to the bathroom. She denies any weakness or incontinence. She states she has occasional tingling in the lower extremities. 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 Squires Per EMR Hyperlipidemia Fibromyalgia Bilateral patellar fracture March 2016, treated nonoperatively. Past Surgical History 1999- Cardiac stent- circumflex R fem pop bypass Partial hysterectomy Sinus surgery Allergies: Coded Allergies: Advair (Verified Allergy, Severe, 10/10/16) SHAKING ALL OVER; INCREASE BLOOD PRESSURE ; SEVERE REACTION Albuterol (Verified Allergy, Severe, SHAKES & HIGH BP, 10/10/16) SEVERE REACTION Quinolones (Verified Allergy, Severe, 10/10/16) SHAKES ALL OVER; ELEVATED BLOOD PRESSURE Serevent (Verified Allergy, Severe, 10/10/16) SHAKES ALL OVER; ELEVATES BLOOD PRESSURE; SEVERE REACTION Sulfa (Verified Allergy, Severe, HIVES, 10/10/16) HIVES; THROAT SWELLING; SEVERE REACTION Active Ordered Medications Current Medications Medications (Trade) Dose Ordered Sig/Tay Route Start Time Stop Time Status Last Admin (NS Flush) 2 ml UNSCH PRN IVF 10/10/16 00:15 (NS Flush) 2 ml BID IV FLUSH 10/10/16 09:00 10/10/16 19:53 (NS Flush) 2 ml UNSCH PRN IV FLUSH 10/10/16 02:15 (Lovenox Inj) 40 mg DAILY SQ 10/10/16 09:00 10/10/16 10:53 (Tylenol) 650 mg Q6H PRN PO 10/10/16 04:00 10/10/16 03:57 (Norvasc) 5 mg HS PO 10/10/16 21:00 10/10/16 19:51 (Aspirin Chew) 81 mg HS CHEW 10/10/16 21:00 10/10/16 19:51 (Vitamin D3) 2,000 units HS PO 10/10/16 21:00 10/10/16 19:52 (Pletal) 100 mg BID PO 10/10/16 21:00 10/10/16 19:51 (Neurontin) 100 mg HS PO 10/10/16 21:00 10/10/16 19:51 (Lopid) 600 mg BIDAC PO 10/10/16 16:00 10/10/16 17:01 (Prinivil) 20 mg HS PO 10/10/16 21:00 10/10/16 19:52 (Protonix) 20 mg HS PO 10/10/16 21:00 10/10/16 19:51 (Effexor Xr) 150 mg HS PO 10/10/16 21:00 10/10/16 19:52 (Toradol Inj) 15 mg Q6H PRN IV PUSH 10/10/16 10:15 10/15/16 10:14 (Flexeril) 5 mg Q8HR PO 10/10/16 10:15 10/10/16 14:40 (SoluMEDROL INJ) 40 mg Q12HR IV PUSH 10/10/16 21:00 10/10/16 19:52 (Pill Splitter) 1 ea UNSCH PRN OTHER 10/10/16 10:15 (Ultram) 50 mg Q6H PRN PO 10/10/16 13:30 10/10/16 14:40 Reported Meds & Active Scripts Active Reported Effexor (Venlafaxine HCl) 75 Mg Tab 150 Mg PO DAILY Omeprazole 20 Mg Tab 20 Mg PO DAILY Lisinopril 20 Mg Tab 20 Mg PO DAILY Gemfibrozil 600 Mg Tab 600 Mg PO BIDAC Take 30 minutes prior to breakfast and dinner. Gabapentin 100 Mg Cap 100 Mg PO DAILY B-12 (Cyanocobalamin) 1,000 Mcg Lozg 1,000 Mcg BUCCAL DAILY Cilostazol 100 Mg Tab 100 Mg PO BID D3 Super Strength (Cholecalciferol) 2,000 Unit Cap 2,000 Units PO DAILY Calcium Ascorbate 500 Mg Tab 600 Mg PO Lipitor (Atorvastatin Calcium) 40 Mg Tab 40 Mg PO HS Aspirin 81 Mg Chew 81 Mg CHEW DAILY Amlodipine (Amlodipine Besylate) 5 Mg Tab 5 Mg PO DAILY Family History Family History Cancer- breast cancer Social History Patient lives with her daughter and her grandson Smoking- quit 4 yrs ago, smoked 1 ppd for 50 years Drinking- none reported Drugs- none reported ( Physical Exam Vital Signs Vital Signs Date Time Temp Pulse Resp B/P Pulse Ox O2 Delivery O2 Flow Rate FiO2 10/10/16 20:00 97.5 118 18 135/81 93 10/10/16 15:55 98.8 116 18 118/78 93 10/10/16 10:30 106 20 96 Room Air 2 10/10/16 10:30 96 Room Air 2 10/10/16 10:30 97.8 106 20 125/75 96 Nasal Cannula 2 10/10/16 08:00 115 22 118/78 95 Room Air 10/10/16 05:03 16 10/10/16 04:30 98 24 113/66 94 Room Air 10/10/16 00:15 97 Nasal Cannula 2 10/10/16 00:13 98 Nasal Cannula 2 10/09/16 23:27 98.0 97 20 122/74 94 Room Air Physical Exam The patient is awake and alert and answers questions appropriately. She moves about in the bed without difficulty or the appearance of any discomfort. She has a negative straight leg raise, 5 out of 5 motor strength and no sensory deficits. Reflexes are symmetric. There is minimal palpable tenderness. There is no spasm or overlying skin change. There is no sign of extremity injury. Laboratory Laboratory Tests Test 10/10/16 10/10/16 00:15 01:05 White Blood Count 11.3 Red Blood Count 4.59 Hemoglobin 13.8 Hematocrit 41.4 Mean Corpuscular Volume 90.3 Mean Corpuscular Hemoglobin 30.0 Mean Corpuscular Hemoglobin 33.3 Concent Red Cell Distribution Width 13.5 Platelet Count 350 Mean Platelet Volume 7.5 Neutrophils (%) (Auto) 44.4 Lymphocytes (%) (Auto) 38.0 Monocytes (%) (Auto) 9.8 Eosinophils (%) (Auto) 6.7 Basophils (%) (Auto) 1.1 Neutrophils # (Auto) 5.0 Lymphocytes # (Auto) 4.3 Monocytes # (Auto) 1.1 Eosinophils # (Auto) 0.8 Basophils # (Auto) 0.1 CBC Comment DIFF FINAL Differential Comment Prothrombin Time 10.7 Prothromb Time International 1.0 Ratio Activated Partial 27.7 Thromboplast Time Sodium Level 140 Potassium Level 3.6 Chloride Level 104 Carbon Dioxide Level 28.2 Anion Gap 8 Blood Urea Nitrogen 12 Creatinine 0.77 Estimat Glomerular Filtration 74 Rate Random Glucose 81 Lactic Acid Level 2.0 Calcium Level 9.8 Magnesium Level 2.0 Total Bilirubin 0.3 Aspartate Amino Transf 38 (AST/SGOT) Alanine Aminotransferase 65 (ALT/SGPT) Alkaline Phosphatase 138 Total Creatine Kinase 92 Troponin I LESS THAN 0.02 B-Type Natriuretic Peptide 8 Total Protein 8.2 Albumin 4.0 Blood Gas Puncture Site RT RADIAL Blood Gas Patient Temperature 98.6 Blood Gas HCO3 22 Blood Gas Base Excess -1.7 Blood Gas Oxygen Saturation 93 Arterial Blood pH 7.41 Arterial Blood Partial 36 Pressure CO2 Arterial Blood Partial 72 Pressure O2 Arterial Blood Oxygen Content 18.1 Arterial Blood 1.2 Carboxyhemoglobin Arterial Blood Methemoglobin 0.8 Blood Gas Hemoglobin 13.8 Oxygen Delivery Device RA Blood Gas Inspired Oxygen 21 Date/Time Procedure Status Source Growth 10/10/16 00:49 Influenza Types A,B Antigen (BRIANA) - Final Complete Nasal Aspirate NEGATIVE FOR FLU A AND B ANTIGEN.... 10/10/16 00:15 Aerobic Blood Culture Received Blood Peripheral Pending 10/10/16 00:15 Anaerobic Blood Culture Received Blood Peripheral Pending Result Diagram: 10/10/16 0015 10/10/16 0015 Imaging Last 48 hours Impressions Chest X-Ray 10/10/16 0011 Signed Impressions: Service Date/Time: September 00:36 - CONCLUSION: No acute disease. David Godinez MD Assessment & Plan Problem List: (1) COPD exacerbation (2) Traumatic compression fracture of L1 lumbar vertebra (3) Mood disorder (4) PVD (peripheral vascular disease) (5) Fibromyalgia (6) Intractable back pain (7) HTN (hypertension) (8) CAD (coronary artery disease) Assessment and Plan The findings were discussed. There are no imaging studies available the present time. It is unclear as to whether the patient needed a standup MRI because of claustrophobia or for further workup of the L1 compression fracture. The patient currently appears comfortable. She is having no neurological symptomatology or findings on examination. Her pain appears well controlled with the current medical regimen. A brace was offered however the patient declined. Consideration will be for further diagnostic studies while she is here and I will try to contact Dr. Castillo with regards to same. She understands that I am not a principal technical specialist and therefore will not be assuming her care. She appears to have had improvement with regards to her pain as well as her COPD exacerbation. If the studies are not completed, she can be discharged from an orthopedic standpoint with appropriate analgesics and with follow-up as scheduled. Terrell Bardales MD Oct 10, 2016 22:06
[2016-10-11] VITALS (9 sets, daily range): BP systolic 95–135; BP diastolic 54–75; PULSE 62–116; RESP 18–23; TEMP 96.6–97.8; O2SAT 91–97
[2016-10-11] MEDS: RESP: IPRATROPIUM 0.5 MG/2.5 ML NEB INH SCH ×5 (01:14→21:54)
[2016-10-11] MEDS: CYCLOBENZAPRINE HCL 10 MG TAB PO SCH ×3 (05:46→22:55)
[2016-10-11] MEDS: GEMFIBROZIL 600 MG TAB PO SCH ×2 (06:17→16:10)
[2016-10-11] MEDS: traMADol HCL 50 MG TAB PO PRN ×2 (06:18→17:50)
[2016-10-11 08:04] LABS: INDIRECT BILIRUBIN 0.1 MG/DL (0.0-0.8); TOTAL BILIRUBIN ADULT 0.2 MG/DL (0.2-1.0)
[2016-10-11] MEDS: CILOSTAZOL 100 MG TAB PO SCH ×2 (08:32→21:00)
[2016-10-11] MEDS: ENOXAPARIN SODIUM 40 MG/0.4 ML SYRINGE SQ SCH (08:33)
[2016-10-11] MEDS: methylPREDNISolone SOD SUCC 40 MG/1 ML VIAL IV PUSH SCH ×2 (08:33→22:56)
[2016-10-11] MEDS: SODIUM CHLORIDE 0.9% FLUSH 10 ML FLUSH IV FLUSH SCH ×2 (08:33→21:00)
--- NOTE | 2016-10-11 11:51 | HHI.PR ---
Subjective Remarks alert responsive resting in bed, pain controlled mild anxiety. dizziness, mild (Danae Samayoa) Objective Objective Results - Vital Signs Date Time Temp Pulse Resp B/P Pulse Ox O2 Delivery O2 Flow Rate FiO2 10/11/16 09:43 96 Nasal Cannula 2.00 10/11/16 08:07 97.1 107 18 115/54 93 10/11/16 04:00 97.7 110 20 95/63 92 10/11/16 01:19 93 Nasal Cannula 2.00 10/11/16 00:00 97.8 113 20 121/75 92 10/10/16 20:00 97.5 118 18 135/81 93 10/10/16 15:55 98.8 116 18 118/78 93 I/O 10/10/16 10/10/16 10/10/16 10/11/16 10/11/16 10/11/16 06:59 14:59 22:59 06:59 14:59 22:59 Intake Total 200 ml 240 ml 240 ml Output Total 2200 ml Balance 200 ml 240 ml -1960 ml Intake Oral 200 ml 240 ml 240 ml Output Urine Total 2200 ml # Voids 1 2 3 # Bowel Movements 0 0 (Danae Samayoa) Result Diagram: 10/10/16 0015 10/10/16 0015 Medications and IVs Active Medications Amlodipine Besylate (Norvasc) 5 mg HS PO Last administered on 10/10/16 19:51; Admin Dose 5 MG; Start 10/10/16 at 21:00 Aspirin (Aspirin Chew) 81 mg HS CHEW Last administered on 10/10/16 19:51; Admin Dose 81 MG; Start 10/10/16 at 21:00 Cholecalciferol (Vitamin D3) 2,000 units HS PO Last administered on 10/10/16 19 :52; Admin Dose 2,000 UNITS; Start 10/10/16 at 21:00 Cilostazol (Pletal) 100 mg BID PO Last administered on 10/11/16 08:32; Admin Dose 100 MG; Start 10/10/16 at 21:00 Gabapentin (Neurontin) 100 mg HS PO Last administered on 10/10/16 19:51; Admin Dose 100 MG; Start 10/10/16 at 21:00 Gemfibrozil (Lopid) 600 mg BIDAC PO Last administered on 10/11/16 06:17; Admin Dose 600 MG; Start 10/10/16 at 16:00 Lisinopril (Prinivil) 20 mg HS PO Last administered on 10/10/16 19:52; Admin Dose 20 MG; Start 10/10/16 at 21:00 Methylprednisolone Sodium Succinate (SoluMEDROL INJ) 40 mg Q12HR IV PUSH Last administered on 10/11/16 08:33; Admin Dose 40 MG; Start 10/10/16 at 21:00; Stop 10/11/16 at 11:45; Status DC Pantoprazole Sodium (Protonix) 20 mg HS PO Last administered on 10/10/16 19:51 ; Admin Dose 20 MG; Start 10/10/16 at 21:00 Prednisone (Deltasone) 10 mg ONCE ONCE PO; Start 10/13/16 at 12:00; Stop at 12:01; Status UNV Prednisone (Deltasone) 20 mg ONCE ONCE PO; Start 10/12/16 at 11:45; Stop at 11:46; Status UNV Tramadol HCl (Ultram) 50 mg Q6H PRN PO Last administered on 10/11/16 06:18; Admin Dose 50 MG; Start 10/10/16 at 13:30 Venlafaxine HCl (Effexor Xr) 150 mg HS PO Last administered on 10/10/16 19:52; Admin Dose 150 MG; Start 10/10/16 at 21:00 (Danae Samayoa) ROS General: Weakness (mild), Other (10 point ROS done positives noted to be weakness cough mild shortness of breath pain is managed other systems negative or unremarkable) Pulmonary: Cough (occasional), SOB (exertional), Wheezing (expiratory mild) ( Danae Samayoa) Physical Exam Physical Exam PHYSICAL EXAMINATION GENERAL: This is a well-developed, well-nourished female who appears to be in no acute distress. She is alert and awake, HEAD: Normocephalic without any lesion or mass noted. Facial features appear symmetric. OROPHARYNGEAL: Oropharynx without erythema or edema. NECK: Supple. No nuchal rigidity or lymphadenopathy. Trachea midline without deviation. CARDIAC: Regular rhythm, regular rate, S1 and S2 are heard. distant, possible soft murmur LUNGS: Clear to auscultation bilaterally. Expiratory wheeze mild, exertional dyspnea ABDOMEN: Soft, nontender, no organomegaly or masses. Bowel sounds are heard in all four quadrants. No rebound. No guarding. EXTREMITIES: no edema. Pulses equal bilateral. NEUROLOGICAL: Patient mood and affect appropriate. No focal deficit SKIN:Warm and moist Objective Remarks I feel a little lightheaded when I get up (Danae Samayoa) A/P Assessment and Plan (1) COPD exacerbation (2) Intractable back pain (3) HTN (hypertension) (4) CAD (coronary artery disease) (5) Elevated liver enzymes (6) Fibromyalgia (7) PVD (peripheral vascular disease) Vital signs and labs reviewed, patient is afebrile, Elevated LFT mild, otherwise labs are negative. Continue to hold statins COPD exacerbation Continue with DuoNeb's, Atrovent as patient is allergic to albuterol. -Solu-Medrol taper to PO Predisone. Patient complains of nervousness, Intractable low back pain, recently fell, had imaging studies as outpatient showing L1 fracture Dr. Bardales saw for the consult, discussed options of stand up MRI due to claustrophobia, versus medical management and follow-up as an outpatient as long as patient's pain is controlled. -We will order Flexeril 5 mg by mouth before every meal Toradol 15 mg every 6 when necessary Tramadol as needed -Physical therapy or evaluation, ambulation, mobility, pain management. These findings will assist in her discharge planning Hypertension, systolic 90s- 118/, mild vertigo noted -Continue home meds, Will check orthostatics in the a.m. and when patient is up out of bed. Peripheral vascular disease, stable -Continue home meds, on Pletal Fibromyalgia, -Continue home medications Lovenox for DVT prophylaxis Discussed With: Nurse, Family (patient), Other (Dr. Garza, patient seen on his behalf) (Danae Samayoa) Assessment and Plan Patient seen and examined Above note reviewed Medications and labs reviewed Appreciate orthopedic consult Patient is still has bilateral wheezing expiratory mostly. Plan for IV steroid to continue will is continue by mouth steroids Discussed with patient Plan of care discussed with LANCE CREWMEMBER Discussed with RN (Panja,JawDanae Bolden Oct 11, 2016 11:51 Karoline Garza MD Oct 11, 2016 16:00
[2016-10-11] MEDS ORDERED: LORazepam 2 MG/ML VIAL IV PRN (15:00)
--- NOTE | 2016-10-11 22:52 | RADRPT ---
EXAM DATE/TIME: 10/11/2016 21:18 [facility] COMPARISON: No previous studies available for comparison. INDICATIONS : Pain. MEDICAL HISTORY : Hypertension. Chronic obstructive pulmonary disease. SURGICAL HISTORY : Cardiac cath. Right femoral bypass. Partial hysterectomy. Sinus. ENCOUNTER: Subsequent ACUITY: 1 day PAIN SCORE: 5/10 LOCATION: Lower back. TECHNIQUE: Multiplanar multisequence MRI of the lumbar spine was performed without contrast. FINDINGS: The most caudal appearing lumbar vertebra is numbered as L5. VERTEBRAE: Minimal superior endplate compressive injury at T12 which appears subacute. Mild non-acute compressio n injury at L1, mainly sub-superior endplate. Tiny Schmorl node injuries involving superior endplates at L2 and L3. Minimal nonacute ventral compressive injury at L4. Mild degenerative-type marrow signa l changes most conspicuously at L4-5. No evidence of spondylolisthesis. CONUS: Normal level and configuration. T12-L1: The thecal sac has a normal diameter. No evidence of disc bulge or protrusion. The neural foramina are patent bilaterally. L1-L2: The thecal sac has a normal diameter. No evidence of disc bulge or protrusion. The neural foramina are patent bilaterally. L2-L3: Minimal annular disc bulge without focal protrusion, canal or foraminal stenosis. L3-L4: Slight annular disc bulge with mild broad superimposed dorsal protrusion. Mild posterior ligamentous and facet hypertrophy contribute to mild canal stenosis. Foramina appear adequate. L4-L5: Annular disc bulge with mild broad superimposed dorsal disc protrusion, minimally eccentric to the ri ght. Mild dorsal ligamentous hypertrophy and facet arthropathy. L5-S1: Significant disc degeneration and loss of disc height. Minimal dorsal protrusion. Mild posterior face t arthropathy. Canal and foramina appear adequate. CONCLUSION: Mild severity subacute compressive injury at T12. Nonacute mild compressive deformities at other leve ls. Broad disc protrusions L3-4 and L4-5 producing a mild degree of canal stenosis. Multilevel degenerati ve changes. Jared Friedman MD on October 11, 2016 at 22:44 Board Certified Radiologist. This report was verified electronically.
[2016-10-11] MEDS: GABAPENTIN 100 MG CAP PO SCH (22:55)
[2016-10-11] MEDS: VENLAFAXINE HCL XR 75 MG CAP PO SCH (22:55)
[2016-10-11] MEDS: PANTOPRAZOLE SOD 20 MG DELAYED RELEASE TAB PO SCH (22:55)
[2016-10-11] MEDS: ASPIRIN 81 MG CHEW TAB CHEW SCH (22:55)
[2016-10-11] MEDS: CHOLECALCIFEROL (VIT D3) 1000 UNIT TAB PO SCH (22:55)
[2016-10-11] MEDS: amLODIPine BESYLATE 5 MG TAB PO SCH (22:55)
[2016-10-11] MEDS: LISINOPRIL 20 MG TAB PO SCH (22:56)
[2016-10-12] VITALS (9 sets, daily range): BP systolic 105–134; BP diastolic 59–83; PULSE 100–118; RESP 18–21; TEMP 97–97.5; O2SAT 92–98
[2016-10-12] MEDS: RESP: IPRATROPIUM 0.5 MG/2.5 ML NEB INH SCH ×4 (04:20→21:16)
[2016-10-12] MEDS: CYCLOBENZAPRINE HCL 10 MG TAB PO SCH ×3 (06:07→21:21)
[2016-10-12] MEDS: GEMFIBROZIL 600 MG TAB PO SCH ×2 (06:08→16:20)
[2016-10-12] MEDS: CILOSTAZOL 100 MG TAB PO SCH ×2 (08:50→21:00)
[2016-10-12] MEDS: ENOXAPARIN SODIUM 40 MG/0.4 ML SYRINGE SQ SCH (08:50)
[2016-10-12] MEDS: methylPREDNISolone SOD SUCC 40 MG/1 ML VIAL IV PUSH SCH ×2 (08:51→21:22)
[2016-10-12] MEDS: SODIUM CHLORIDE 0.9% FLUSH 10 ML FLUSH IV FLUSH SCH ×2 (08:51→21:00)
[2016-10-12 11:20] LABS: HEMATOCRIT 35.7 % (35.0-46.0); MEAN CELL VOLUME 90.4 FL (80.0-100.0); MEAN CORPUSCULAR HEMOGLOBIN 30.2 PG (27.0-34.0); MEAN CORPUSCULAR HGB CONC 33.4 % (32.0-36.0); PLATELET COUNT 342 TH/MM3 (150-450); RED BLOOD COUNT 3.95 MIL/MM3 (4.00-5.30); RED CELL DISTRIBUTION WIDTH 13.6 % (11.6-17.2); REVIEW FLAG FINAL; WHITE BLOOD COUNT 16.4 TH/MM3 (4.0-11.0)
[2016-10-12 11:54] LABS: BICARBONATE 26.8 MEQ/L (21.0-32.0); POTASSIUM 4.2 MEQ/L (3.5-5.1)
[2016-10-12] MEDS ORDERED: predniSONE 20 MG TAB PO ONE (12:00)
--- NOTE | 2016-10-12 12:07 | HHI.PR ---
Subjective Remarks alert responsive resting in bed, pain controlled mild anxiety. dizziness, mild (Danae Samayoa) Objective Objective Results - Vital Signs Date Time Temp Pulse Resp B/P Pulse Ox O2 Delivery O2 Flow Rate FiO2 10/12/16 09:56 93 Nasal Cannula 2.00 10/12/16 08:38 97.4 100 21 122/68 93 134/60 130/59 10/12/16 06:07 97.0 110 19 110/63 95 10/12/16 04:32 93 Nasal Cannula 2.00 10/12/16 01:12 97.0 104 18 130/77 94 10/11/16 21:03 97.1 116 19 135/68 95 10/11/16 17:04 96.6 108 23 106/59 94 10/11/16 15:44 91 21 10/11/16 12:45 97.2 62 20 107/59 97 I/O 10/11/16 10/11/16 10/11/16 10/12/16 10/12/16 10/12/16 07:00 15:00 23:00 07:00 15:00 23:00 Intake Total 240 ml 240 ml 240 ml Output Total 2200 ml Balance -1960 ml 240 ml 240 ml Intake Oral 240 ml 240 ml 240 ml Output Urine Total 2200 ml # Voids 3 2 2 # Bowel Movements 0 (Danae Samayoa) Result Diagram: 10/12/16 1108 10/12/16 1108 Physical Exam Physical Exam PHYSICAL EXAMINATION GENERAL: This is a well-developed, well-nourished female who appears to be in no acute distress. She is alert and awake, []. HEAD: Normocephalic without any lesion or mass noted. Facial features appear symmetric. OROPHARYNGEAL: Oropharynx without erythema or edema. NECK: Supple. No nuchal rigidity or lymphadenopathy. Trachea midline without deviation. CARDIAC: Regular rhythm, regular rate, S1 and S2 are heard. Murmur []; no gallops or rubs. LUNGS: Clear to auscultation bilaterally. [] wheeze, [] rhonchi or [] rale. No use of accessory muscles on inspiration or expiration. ABDOMEN: Soft, nontender, no organomegaly or masses. Bowel sounds are heard in all four quadrants. No rebound. No guarding. EXTREMITIES: [] edema. Pulses equal bilateral. [] cyanosis. NEUROLOGICAL: Patient mood and affect appropriate. No focal deficit SKIN:Warm and moist (Danae Samayoa) A/P Assessment and Plan (1) COPD exacerbation (2) Intractable back pain (3) HTN (hypertension) (4) CAD (coronary artery disease) (5) Elevated liver enzymes (6) Fibromyalgia (7) PVD (peripheral vascular disease) Vital signs and labs reviewed, patient is afebrile,orthostatic BP < 8 pt. difference systolic. Elevated LFT mild, otherwise labs are negative. Continue to hold statins COPD exacerbation Continue with DuoNeb's, Atrovent as patient is allergic to albuterol. -Solu-Medrol taper to PO Predisone. Patient is sleeping, O2 is off around her neck, no acute shortness of breath or wheezing noted. Requested patient ambulate in rm, and up in chair for tolerance checks. Intractable low back pain, recently fell, had imaging studies as outpatient showing L1 fracture Dr. Bardales saw for the consult, MRI done. We'll follow his medical management -Physical therapy or evaluation, ambulation, mobility, pain management. These findings will assist in her discharge planning Hypertension, normal BP, vitals reviewed -Continue home meds, Orthostatic checks Peripheral vascular disease, stable -Continue home meds, on Pletal Fibromyalgia, -Continue home medications Lovenox for DVT prophylaxis Discussed With: Nurse, Family (patient), Other (Dr. Garza, patient seen on his behalf) (Danae Samayoa) Assessment and Plan Patient seen and examined as above Still has some wheezing Has some back pain MRI report reviewed and explained showing subacute compressive injury at T12 broad disc protrusion L3-4 and L4-5 producing mild degree of canal stenosis Labs reviewed. Leukocytosis secondary to steroid Medications reviewed Discussed with patient Plan of care discussed with CANCER GENETIC COUNSELOR Continue current management and physical therapy (Karoline Garza MD) Danae Samayoa Oct 12, 2016 12:07 Karoline Garza MD Oct 12, 2016 14:07
[2016-10-12] MEDS: LISINOPRIL 20 MG TAB PO SCH ×2 (21:00→21:21)
[2016-10-12] MEDS: VENLAFAXINE HCL XR 75 MG CAP PO SCH (21:00)
[2016-10-12] MEDS: amLODIPine BESYLATE 5 MG TAB PO SCH ×2 (21:00→21:21)
[2016-10-12] MEDS: ASPIRIN 81 MG CHEW TAB CHEW SCH (21:21)
[2016-10-12] MEDS: GABAPENTIN 100 MG CAP PO SCH (21:21)
[2016-10-12] MEDS: CHOLECALCIFEROL (VIT D3) 1000 UNIT TAB PO SCH (21:21)
[2016-10-12] MEDS: PANTOPRAZOLE SOD 20 MG DELAYED RELEASE TAB PO SCH (21:21)
[2016-10-13] VITALS (8 sets, daily range): BP systolic 103–133; BP diastolic 57–73; PULSE 96–115; RESP 15–20; TEMP 96.2–98.4; O2SAT 91–94
[2016-10-13] MEDS: RESP: IPRATROPIUM 0.5 MG/2.5 ML NEB INH SCH ×4 (03:50→22:07)
[2016-10-13] MEDS: GEMFIBROZIL 600 MG TAB PO SCH ×2 (05:10→15:11)
[2016-10-13] MEDS: CYCLOBENZAPRINE HCL 10 MG TAB PO SCH ×3 (05:10→21:37)
[2016-10-13] MEDS: traMADol HCL 50 MG TAB PO PRN (06:17)
[2016-10-13] MEDS: methylPREDNISolone SOD SUCC 40 MG/1 ML VIAL IV PUSH SCH ×2 (08:56→21:37)
[2016-10-13] MEDS: ENOXAPARIN SODIUM 40 MG/0.4 ML SYRINGE SQ SCH (08:56)
[2016-10-13] MEDS: CILOSTAZOL 100 MG TAB PO SCH ×2 (08:57→21:00)
[2016-10-13] MEDS: SODIUM CHLORIDE 0.9% FLUSH 10 ML FLUSH IV FLUSH SCH ×2 (08:57→21:00)
--- NOTE | 2016-10-13 11:13 | HHI.PR ---
Subjective Remarks sleeping this am, awakens to verbal stimuli. responsive resting in bed, pain controlled mild anxiety. no further dizziness noted. (Danae Samayoa) Objective Objective Results - Vital Signs Date Time Temp Pulse Resp B/P Pulse Ox O2 Delivery O2 Flow Rate FiO2 10/13/16 10:10 91 Nasal Cannula 2.00 10/13/16 08:22 97.7 103 20 116/61 94 112/57 103/67 10/13/16 04:00 96.8 96 15 124/65 92 10/13/16 00:00 96.2 109 20 115/60 94 10/12/16 21:17 98 Nasal Cannula 2.00 10/12/16 20:00 97.5 116 18 105/60 92 10/12/16 16:37 97.5 118 20 127/66 94 10/12/16 13:07 97.3 115 20 116/83 94 I/O 10/12/16 10/12/16 10/12/16 10/13/16 10/13/16 10/13/16 07:00 15:00 23:00 07:00 15:00 23:00 Intake Total 240 ml 480 ml Balance 240 ml 480 ml Intake Oral 240 ml 480 ml # Voids 2 3 2 (Danae Samayoa) Result Diagram: 10/12/16 1108 10/12/16 1108 ROS General: Fatigue (easily), Other (10 point ROS, done, NO SOB at rest. Other systems unremarkable) Pulmonary: Cough, SOB, Wheezing (expiratory with exertion) (Danae Samayoa) Physical Exam Physical Exam PHYSICAL EXAMINATION GENERAL: This is a well-developed, well-nourished female who appears to be in no acute distress. She is sleeping this am HEAD: Normocephalic without any lesion or mass noted. Facial features appear symmetric. OROPHARYNGEAL: Oropharynx without erythema or edema. NECK: Supple. No nuchal rigidity or lymphadenopathy. Trachea midline without deviation. CARDIAC: Regular rhythm, regular rate, S1 and S2 are heard. distant sounds Murmur soft; LUNGS: Clear to auscultation bilaterally. exp. wheeze with exertion, few rhonchi controlled now, No use of accessory muscles on inspiration or expiration at rest. ABDOMEN: Soft, nontender, no organomegaly or masses. Bowel sounds are heard in all four quadrants. No rebound. No guarding. EXTREMITIES: no edema. Pulses equal bilateral. NEUROLOGICAL: Patient mood and affect appropriate, nervous/anxiety at time . No focal deficit SKIN:Warm and moist Objective Remarks Im doing better except for LBP. (Danae Samayoa) A/P Assessment and Plan (1) COPD exacerbation (2) Intractable back pain (3) HTN (hypertension) (4) CAD (coronary artery disease) (5) Elevated liver enzymes (6) Fibromyalgia (7) PVD (peripheral vascular disease) Vital signs and labs reviewed, patient is afebrile,orthostatic BP < 8 pt. difference systolic. Elevated LFT mild, otherwise labs are negative. Continue to hold statins COPD exacerbation Continue with DuoNeb's, Atrovent as patient is allergic to albuterol. -Solu-Medrol taper to PO Predisone. Patient is sleeping, O2 is off around her neck, no acute shortness of breath or wheezing noted. Requested patient ambulate in rm, and up in chair for tolerance checks. leukocytosis secondary to steroids. Intractable low back pain, recently fell, had imaging studies as outpatient showing T12 fracture Dr. Bardales saw for the consult, MRI done. We'll follow his medical management -Physical therapy or evaluation, ambulation, mobility, pain management. These findings will assist in her discharge planning Hypertension, normal BP, vitals reviewed -Continue home meds, Peripheral vascular disease, stable -Continue home meds, on Pletal Fibromyalgia, -Continue home medications Lovenox for DVT prophylaxis Low back pain, acute on chronic. Increased activity and encouraged to be OOB in chair and ambulate in room. Pain management. Discussed With: Nurse, Family (patient), Other (Dr. Garza, patient seen on his behalf) (Danae Samayoa) Assessment and Plan Patient seen and examined as above Still has some wheezing Has some back pain MRI report reviewed and explained showing subacute compressive injury at T12 broad disc protrusion L3-4 and L4-5 producing mild degree of canal stenosis Medications reviewed Discussed with patient Plan of care discussed with AP Plan for walk test Plan for transition to by mouth steroid Hopefully DC planning for tomorrow if is stable on by mouth steroid Continue current management and physical therapy (Karoline Garza MD) Danae Samayoa 26, 2017 11:13 Karoline Garza MD Oct 13, 2016 13:21
[2016-10-13] MEDS ORDERED: predniSONE 10 MG TAB PO ONE (12:00)
[2016-10-13] MEDS: predniSONE 50 MG TAB PO SCH (18:20)
[2016-10-13] MEDS: ACETAMINOPHEN 325 MG TAB PO PRN (18:39)
[2016-10-13] MEDS: VENLAFAXINE HCL XR 75 MG CAP PO SCH (21:00)
[2016-10-13] MEDS: PANTOPRAZOLE SOD 20 MG DELAYED RELEASE TAB PO SCH (21:36)
[2016-10-13] MEDS: GABAPENTIN 100 MG CAP PO SCH (21:36)
[2016-10-13] MEDS: LISINOPRIL 20 MG TAB PO SCH (21:36)
[2016-10-13] MEDS: CHOLECALCIFEROL (VIT D3) 1000 UNIT TAB PO SCH (21:36)
[2016-10-13] MEDS: ASPIRIN 81 MG CHEW TAB CHEW SCH (21:37)
[2016-10-13] MEDS: amLODIPine BESYLATE 5 MG TAB PO SCH (21:37)
[2016-10-14] VITALS: BP 128/70; PULSE 89; RESP 20; TEMP 98.3; O2SAT 94
[2016-10-14 04:00] VITALS: BP 119/57; PULSE 106; RESP 20; TEMP 97.2; O2SAT 95
[2016-10-14] MEDS: RESP: IPRATROPIUM 0.5 MG/2.5 ML NEB INH SCH ×2 (04:05→09:53)
[2016-10-14] MEDS: CYCLOBENZAPRINE HCL 10 MG TAB PO SCH ×2 (04:57→13:42)
[2016-10-14] MEDS: GEMFIBROZIL 600 MG TAB PO SCH (04:57)
--- NOTE | 2016-10-14 07:39 | PD.ORT.PN ---
Subjective Subjective Remarks Patient laying comfortably in bed. Admits back pain is severe at times with certain movement. MRI results were reviewed with patient demonstrating a subacute superior endplate compressive injury at T12 and a mild non acute compressive injury at L1. She is interested in wearing a back brace at this point. No other complaints noted. Objective Vitals Vital Signs Date Time Temp Pulse Resp B/P Pulse Ox O2 Delivery O2 Flow Rate FiO2 10/14/16 04:00 97.2 106 20 119/57 95 10/14/16 00:00 98.3 89 20 128/70 94 10/13/16 22:07 93 10/13/16 20:00 98.0 113 20 133/73 93 10/13/16 16:28 98.4 115 20 132/59 92 10/13/16 12:17 97.9 102 20 125/65 92 10/13/16 10:10 91 Nasal Cannula 2.00 10/13/16 08:22 97.7 103 20 116/61 94 112/57 103/67 I/O 10/13/16 10/13/16 10/13/16 10/14/16 10/14/16 10/14/16 06:59 14:59 22:59 06:59 14:59 22:59 # Voids 2 2 Result Diagram: 10/12/16 1108 10/12/16 1108 Imaging Last Impressions Lumbar Spine MRI 10/11/16 0000 Signed Impressions: Service Date/Time: Tuesday, October 11, 2016 21:18 - CONCLUSION: Mild severity subacute compressive injury at T12. Nonacute mild compressive deformities at other levels. Broad disc protrusions L3-4 and L4-5 producing a mild degree of canal stenosis. Multilevel degenerative changes. Jared Friedman MD Chest X-Ray 10/10/16 0011 Signed Impressions: Service Date/Time: September 00:36 - CONCLUSION: No acute disease. David Godinez MD Objective Remarks The patient is awake and alert and answers questions appropriately. She moves about in the bed without difficulty or the appearance of any discomfort. She has a negative straight leg raise, 5 out of 5 motor strength and no sensory deficits. Reflexes are symmetric. There is mild palpable tenderness over L1 area. There is no spasm or overlying skin change. There is no sign of extremity injury. Assessment & Plan Problem List: (1) COPD exacerbation (2) Compression fracture of T12 vertebra (3) Traumatic compression fracture of L1 lumbar vertebra (4) Mood disorder (5) PVD (peripheral vascular disease) (6) Fibromyalgia (7) Intractable back pain (8) HTN (hypertension) (9) CAD (coronary artery disease) Assessment and Plan T12 - subacute superior endplate compressive injury, L1 - mild non acute compressive injury Ortho status stable. The findings were discussed and MRI results were reviewed. No acute intervention necessary at this time. TLSO back brace has been ordered, will be fitted to patient today. Continue physical therapy per protocol, weight bearing as tolerated. Clear for discharge from an orthopedic standpoint. Patient is to follow up with Dr. Chris Castillo in an outpatient clinic setting in the next 5-10 days. Rachel Wu Oct 14, 2016 07:38
[2016-10-14 08:08] VITALS: BP 123/98; PULSE 104; RESP 20; TEMP 97.4; O2SAT 92
[2016-10-14] MEDS: CILOSTAZOL 100 MG TAB PO SCH (09:00)
[2016-10-14] MEDS: ENOXAPARIN SODIUM 40 MG/0.4 ML SYRINGE SQ SCH ×2 (09:00→09:01)
[2016-10-14] MEDS: SODIUM CHLORIDE 0.9% FLUSH 10 ML FLUSH IV FLUSH SCH (09:00)
[2016-10-14] MEDS: predniSONE 50 MG TAB PO SCH (09:01)
[2016-10-14] MEDS: methylPREDNISolone SOD SUCC 40 MG/1 ML VIAL IV PUSH SCH (09:02)
[2016-10-14 09:54] VITALS: O2SAT 95
--- NOTE | 2016-10-14 11:01 | HHI.PR ---
Subjective Remarks back pain better has been out of bed to ambulate less sob and wheezing no fever anxious to go home Objective Objective Results - Vital Signs Date Time Temp Pulse Resp B/P Pulse Ox O2 Delivery O2 Flow Rate FiO2 10/14/16 09:54 95 21 10/14/16 08:08 97.4 104 20 123/98 92 10/14/16 04:00 97.2 106 20 119/57 95 10/14/16 00:00 98.3 89 20 128/70 94 10/13/16 22:07 93 10/13/16 20:00 98.0 113 20 133/73 93 10/13/16 16:28 98.4 115 20 132/59 92 10/13/16 12:17 97.9 102 20 125/65 92 I/O 10/13/16 10/13/16 10/13/16 10/14/16 10/14/16 10/14/16 07:00 15:00 23:00 07:00 15:00 23:00 # Voids 2 2 Result Diagram: 10/12/16 1108 10/12/16 1108 Imaging Last Impressions Chest X-Ray 10/10/16 0011 Signed Impressions: Service Date/Time: September 00:36 - CONCLUSION: No acute disease. David Godinez MD Other Results Date/Time Procedure Status Source Growth 10/10/16 00:49 Influenza Types A,B Antigen (BRIANA) - Final Complete Nasal Aspirate NEGATIVE FOR FLU A AND B ANTIGEN.... 10/10/16 00:15 Aerobic Blood Culture - Preliminary Resulted Blood Peripheral NO GROWTH IN 3 DAYS 10/10/16 00:15 Anaerobic Blood Culture - Preliminary Resulted Blood Peripheral NO GROWTH IN 3 DAYS ROS General: No: Fatigue, Weakness HEENT: No: Sore Throat, Dysphagia Cardiac: No: Chest Pain, Edema, Palpitations Pulmonary: Cough, SOB, Wheezing, No: Other GI: No: Abdominal Pain, BM, Diarrhea, N/V /FIXED [employer] CHIEF: No: Dysuria, Urgency Neuro/MS: Other (back pain ), No: Lightheaded, Confusion Psych: No: Anxiety, Depression Skin: No: Itching, Rash Physical Exam Physical Exam GENERAL: This is a well-nourished, well-developed patient, in no apparent distress. SKIN: No rashes, ecchymoses or lesions. Cool and dry. HEAD: Atraumatic. Normocephalic. No temporal or scalp tenderness. EYES: Pupils equal round and reactive. Extraocular motions intact. No scleral icterus. No injection or drainage. ENT: Nose without bleeding, purulent drainage or septal hematoma. Throat without erythema, tonsillar hypertrophy or exudate. Uvula midline. Airway patent. NECK: Trachea midline. No JVD or lymphadenopathy. Supple, nontender, no meningeal signs. CARDIOVASCULAR: Regular rate and rhythm without murmurs, gallops, or rubs. RESPIRATORY: diffuse exp. wheezing GASTROINTESTINAL: Abdomen soft, non-tender, nondistended. No hepato-splenomegaly , or palpable masses. No guarding. MUSCULOSKELETAL: Complains of pain to low back pain on palpation. No deformities noted. Extremities without clubbing, cyanosis, or edema. No joint tenderness, effusion, or edema noted. No calf tenderness. Negative Homans sign bilaterally. NEUROLOGICAL: Awake and alert. Cranial nerves II through XII intact. Motor and sensory grossly within normal limits. Five out of 5 muscle strength in all muscle groups. Normal speech. Urinary Catheter: No Vascular Central Line Catheter: No A/P Diagnosis: (1) COPD exacerbation (2) Intractable back pain (3) HTN (hypertension) (4) CAD (coronary artery disease) (5) Elevated liver enzymes (6) Fibromyalgia (7) PVD (peripheral vascular disease) (8) Compression fracture of T12 vertebra Assessment and Plan 71-year-old female with prior history of tobacco abuse and COPD, presented to emergency room with increasing shortness of breath. Found in COPD exacerbation , was noted hypoxic with increased work of breathing. Also reported low back pain from recent fall, had imaging studies as outpatient positive for L1 fracture. COPD exacerbation -wean off oxygen -changed to PO steroids Continue with DuoNeb's, Atrovent as patient is allergic to albuterol. Intractable low back pain, recently fell, had imaging studies as outpatient showing L1 fracture -S/P MRI T12 - subacute superior endplate compressive injury, L1 - mild non acute compressive injury appreciate ortho input, non surgical approach recommended. TLSO brace ordered. -Continue Tramadol and Flexeril, working well to control pain -PT eval for tx Elevated liver enzymes, etiology unclear Held statins LFTs normal now Hypertension, stable -Continue home meds Peripheral vascular disease, stable -Continue home meds, on Pletal Fibromyalgia, -Continue home medications Lovenox for DVT prophylaxis CM for dc planning ok to dc per ortho Stable for discharge, sob and wheezing improved Discharge home with HHC, PT F/U Dr. Castillo 5-10 days Diet-heart healthy Activity-wear TLSO brace, OOB as tolerated. D/W RN D/W Dr. Garza D/W pt. D/W CM This patient was seen by myself and Dr. Garza, this note is written on his behalf Discharge Planning 45 min Discussed With: Nurse, Family (patient), Other (CM) Problem Qualifiers (1) HTN (hypertension): Qualified Code: I10 - Essential hypertension (2) CAD (coronary artery disease): Qualified Code: I25.10 - Coronary artery disease involving la posta coronary artery of [place] post[place] heart without angina pectoris (3) Compression fracture of T12 vertebra: Qualified Code: M48.54XD - Compression fracture of T12 vertebra, with routine healing, subsequent encounter Brandi Kong Oct 14, 2016 11:01
--- NOTE | 2016-10-14 11:01 | HHI.FF ---
Face to Face Verification Diagnosis: (1) Compression fracture of T12 vertebra (2) COPD (chronic obstructive pulmonary disease) Physical Therapy Order: Evaluate and Treat Home Health Nursing Order: Nursing assessment with vital signs I have seen patient Kacie Stephen on 10/14/16. My clinical findings support the need for the requested home health care services because: Patient has SOB Deconditioned w/ increased weakness I certify that my clinical findings support that this patient is homebound because: Hx COPD- exertion dyspnea/weakness Unsteady gait/balance Brandi Kong Oct 14, 2016 11:01
[2016-10-14] MEDS ORDERED: PRED50 PO (11:44)
[2016-10-14] MEDS ORDERED: CYCL1TAB29 PO (11:44)
--- NOTE | 2016-10-14 11:45 | HHI.DCPOC ---
Discharge Care Plan Diagnosis: (1) Compression fracture of T12 vertebra (2) COPD exacerbation Your Health Problems Are: Cough Shortness of Breath Goals to Promote Your Health * To prevent worsening of your condition and complications * To maintain your health at the optimal level Directions to Meet Your Goals Take your medications as prescribed Follow your dietary instruction Follow activity as directed Keep your appointments as scheduled Take your immunizations and boosters as scheduled If your symptoms worsen call your PCP, if no PCP go to Urgent Care Center or Emergency Room Smoking is Dangerous to Your Health. Avoid second hand smoke Call the 24-hour hour crisis hotline for domestic abuse at Brandi Kong [facility] Oct 14, 2016 11:45
[2016-10-14 12:20] VITALS: BP 109/63; PULSE 104; RESP 20; TEMP 96.7; O2SAT 92
[2016-10-14] MEDS ORDERED: ULTR50TA5 PO (13:41)
--- NOTE | 2016-10-14 15:11 | HHI.DS ---
Discharge Summary Admission Date Oct 10, 2016 at 01:23 Discharge Date: Oct 14, 2016 Admitting Diagnosis COPD Exacerbation (1) COPD exacerbation (2) Intractable back pain (3) HTN (hypertension) (4) CAD (coronary artery disease) (5) Elevated liver enzymes (6) Fibromyalgia (7) PVD (peripheral vascular disease) (8) Compression fracture of T12 vertebra CBC/BMP: 10/12/16 1108 10/12/16 1108 Significant Findings Laboratory Tests Test 10/12/16 11:08 White Blood Count 16.4 TH/MM3 (4.0-11.0) Red Blood Count 3.95 MIL/MM3 (4.00-5.30) Blood Urea Nitrogen 24 MG/DL (7-18) Estimat Glomerular Filtration 61 ML/MIN (>89) Rate Random Glucose 111 MG/DL (74-106) Hospital Course This a 71-year-old female with history of coronary artery disease stents, COPD, GERD, fibromyalgia, osteopenia. Patient presented to the emergency room complaining of shortness of breath. Indicates that a couple of days ago she had a fall, she fell out of her bed and landed on her buttocks. She went to primary care physician and had a x-ray that showed an L1 fracture. She was referred her to see Dr. Che however he is no longer practicing in the area therefore she was referred to Dr. Chris Castillo and was supposed to have a standing MRI of the lumbar spine. She's had intractable pain to the lower back , associated with muscle spasms. She is also had pain radiating to the front of her thighs with some numbness or tingling to the bottom of her feet. She denies any loss of bowel or bladder function. As her back pain increased, she started to have increasing shortness of breath and wheezing. She tried her nebulizer at home without any results. She has been coughing, nonproductive and has had increased wheezing. No fever, no chills. She no longer smokes. She's not oxygen dependent. Patient came to the emergency room for further evaluation. Patient was evaluated in the emergency room, laboratory workup was essentially unremarkable except for mild elevation of liver enzymes. Patient is on statins, denies any history of drug use, no liver disease. She was afebrile. Sats were 94% on room air. Chest x-ray did not reveal any acute findings. Patient was noted hypoxic on presentation, she had increased work of breathing. She has an allergy to albuterol therefore she was given 3 Atrovent and reported feeling better. Patient was examined in the emergency room, at that time her only complaint was low back pain. Shortness of breath had improved. Patient was admitted for further evaluation and treatment for: (1) COPD exacerbation (2) Intractable back pain (3) HTN (hypertension) (4) CAD (coronary artery disease) (5) Elevated liver enzymes (6) Fibromyalgia (7) PVD (peripheral vascular disease) (8) Compression fracture of T12 vertebra During the course of the hospitalization, the following took place: 71-year-old female with prior history of tobacco abuse and COPD, presented to emergency room with increasing shortness of breath. Found in COPD exacerbation , was noted hypoxic with increased work of breathing. Also reported low back pain from recent fall, had imaging studies as outpatient positive for L1 fracture. COPD exacerbation, resolved. -weaned off oxygen -changed to PO steroids Continue with DuoNeb's, Atrovent as patient is allergic to albuterol. -stabilized. Intractable low back pain, recently fell, had imaging studies as outpatient showing L1 fracture -evaluated per ortho, MRI ordered. -S/P MRI T12 - subacute superior endplate compressive injury, L1 - mild non acute compressive injury appreciate ortho input, non surgical approach recommended. TLSO brace ordered. -Continued Tramadol and Flexeril, working well to control pain -PT eval for tx was ordered. Elevated liver enzymes, etiology unclear Held statins LFTs repeated, stabilized. Hypertension, stable -Continued home meds Peripheral vascular disease, stable -Continued home meds, on Pletal Fibromyalgia, -Continued home medications Put on Lovenox for DVT prophylaxis CM for dc planning, HHC arranged. ok to dc per ortho Stable for discharge, sob and wheezing improved Discharged home with HHC, PT F/U Dr. Castillo 5-10 days Diet-heart healthy Activity-wear TLSO brace, OOB as tolerated. Pt Condition on Discharge: Stable Discharge Disposition: Disch w/ Home Health Serv Discharge Instructions DIET: Follow Instructions for: Heart Healthy Diet Activities you can perform: Weight Bearing as Ivet Activities to Avoid: Lifting/Bending Other Activity Instructions: wear TLSO brace Follow up Referrals: Orthopedics - 1 Week @ [facility] with Chris Castillo MD PCP Follow-up - 1 Week New Medications: Cyclobenzaprine (Flexeril) 10 Mg Tab 5 MG PO Q8HR BACK SPASMS #21 Ref 0 TAB Prednisone (Prednisone) 50 Mg Tab 50 MG PO DAILY 50 MG ORALLY DAILY X 2, THEN 40 MG ORALLY DAILY X 2, THEN 20 MG ORALLY X 2 DAYS, THEN 10 MG ORALLY X 2 DAYS. Broncospasm #10 TAB Tramadol (Ultram) 50 Mg Tab 50 MG PO Q6H PRN PAIN SCALE 6 TO 10 #30 TAB Continued Medications: Amlodipine (Amlodipine) 5 Mg Tab 5 MG PO DAILY Blood Pressure Management #30 Ref 0 TAB Aspirin (Aspirin) 81 Mg Chew 81 MG CHEW DAILY Ref 0 TAB Atorvastatin (Lipitor) 40 Mg Tab 40 MG PO HS Cholesterol Management #30 Ref 0 TAB Calcium Ascorbate (Calcium Ascorbate) 500 Mg Tab 600 MG PO Calcium Supplement Ref 0 TAB Cholecalciferol (D3 Super Strength) 2,000 Unit Cap 2000 UNITS PO DAILY Nutritional Supplement #30 Ref 0 CAP Cilostazol (Cilostazol) 100 Mg Tab 100 MG PO BID INTERMITTENT CLAUDICATION Ref 0 TAB Cyanocobalamin (B-12) 1,000 Mcg Lozg 1000 MCG BUCCAL DAILY Nutritional Supplement #1 Ref 0 BOTTLE Gabapentin (Gabapentin) 100 Mg Cap 100 MG PO DAILY #60 Ref 0 CAP Gemfibrozil (Gemfibrozil) 600 Mg Tab 600 MG PO BIDAC Take 30 minutes prior to breakfast and dinner. #60 Ref 0 TAB Lisinopril (Lisinopril) 20 Mg Tab 20 MG PO DAILY #30 Ref 0 TAB Omeprazole (Omeprazole) 20 Mg Tab 20 MG PO DAILY #30 Ref 0 TAB Venlafaxine (Effexor) 75 Mg Tab 150 MG PO DAILY #30 Ref 0 TAB Brandi Kong Oct 14, 2016 15:11
== END 2016-10-14 15:17 | disposition home health service (06) | DRG 191 ==
LOC: NEPA 23:24 → OBSVTOIN 10-10 01:23 → NEDA 10-10 01:23 → NEDH 10-10 05:23 → N05B 10-10 14:15 → N05A 10-11 14:40
PROVIDERS: ADMIT Specialist; ATTEND Specialist
PROC: 3E0F7GC Introduction of Other Therapeutic Substance into Respiratory Tract, Via Natural or Artificial Opening (ICD-10-PCS; principal; 2016-10-10)
DX: J44.1 Chronic obstructive pulmonary disease with (acute) exacerbation (principal); S32.018A Other fracture of first lumbar vertebra, initial encounter for closed fracture; S22.089A Unspecified fracture of T11-T12 vertebra, initial encounter for closed fracture; I10 Essential (primary) hypertension; E78.00 Pure hypercholesterolemia, unspecified; K21.9 Gastro-esophageal reflux disease without esophagitis; R09.02 Hypoxemia; M79.7 Fibromyalgia; Z87.891 Personal history of nicotine dependence; I25.10 Atherosclerotic heart disease of native coronary artery without angina pectoris; Z95.5 Presence of coronary angioplasty implant and graft; Z88.2 Allergy status to sulfonamides; Z88.8 Allergy status to other drugs, medicaments and biological substances; M85.80 Other specified disorders of bone density and structure, unspecified site; W06.XXXA Fall from bed, initial encounter; Y93.9 Activity, unspecified; Y92.003 Bedroom of unspecified non-institutional (private) residence as the place of occurrence of the external cause; Y99.9 Unspecified external cause status; R74.8 Abnormal levels of other serum enzymes; E78.5 Hyperlipidemia, unspecified; Z80.3 Family history of malignant neoplasm of breast; I73.9 Peripheral vascular disease, unspecified; F39 Unspecified mood [affective] disorder; F41.9 Anxiety disorder, unspecified; R42 Dizziness and giddiness; M51.26 Other intervertebral disc displacement, lumbar region; D72.829 Elevated white blood cell count, unspecified; T38.0X5A Adverse effect of glucocorticoids and synthetic analogues, initial encounter; M48.06 Spinal stenosis, lumbar region; G89.29 Other chronic pain
CPT/HCPCS: 36600; 71010; 72148; 80048; 80053; 80076; 82550; 82805; 83605; 83735; 83880; 84484; 85025; 85027; 85610; 85730; 87040; 87804; 93005; 94640; 94664; 96374; J1650; J2060; J2920; J2930; J7512; J7644; L0200; L0484

== ENCOUNTER → 2016-10-25 | Day surgery (SDC) | payer MEDICARE, OTHER ==
[~2016-10-25] MED LIST changes: +ACETAMINOPHEN/HYDROcodone 325 MG/5 MG TAB ONE; +ALPR.25 PO; +AMLO5TAB2 PO; -AMLO5TAB22 PO; -ASPI81 PO; +ASPI81CH CHEW; -ATOR40TA49 PO; +AZIT250T3 PO; +BUPIVACAINE/EPINEPHRINE 0.5% PF 30 ML VIAL ONE; +CALC500T37 PO; -CALC600T34 PO; +CHOL20005 PO; +CYAN100015 BUCCAL; +CYCL1TAB29 PO; +IOHEXOL 180 MG/ML 20 ML VIAL (for RAD DIAG) ONE; -IPRA0.02 NEB; +KETOROLAC TROMETHAMINE 30 MG/ML (IVP) VIAL IV PUSH ONE; +LACTATED RINGER'S 1000 ML INJ 1,000 ML ONE; -LEVA0.6316 NEB; +LIDOCAINE 1%/EPINEPHrine 1:100,000 SOLN 20 ML VIAL ONE; +LIPI40TA PO; -LISI-363 PO; +LISI-515 PO; +MIDAZOLAM HCL 2 MG/2 ML VIAL ONE; +MORPHINE SULFATE 4 MG/ML INJ ONE; -OMEP20TA OR; +OMEP20TA PO; +PRED20 PO; +PRED50 PO; +PROPOFOL 200 MG/20 ML AMP IV ONE; -SPIRCAP INH; +ULTR50TA5 PO; -VENL-39 PO; +VENL75TA PO; -VITA10004 PO; -VITA20002 PO; -WALKER STANDARD; +ceFAZolin 2 GM PREMIX 50 ML ONE
--- NOTE | 2016-10-25 18:57 | TN ---
cc: JOHN PAUL CARRANZA DATE OF SURGERY 10/25/16 PREOPERATIVE DIAGNOSIS Compression fracture of T12 acute. POSTOPERATIVE DIAGNOSIS Compression fracture of T12 acute. PROCEDURE Kyphoplasty of T12 and placement of a bone cement spacer. SURGEON Tiffany Carranza MD ANESTHESIA TIVA. ESTIMATED BLOOD LOSS Minimal. INDICATION This patient is a 71-year-old female with significant back pain. The patient injured her back in the beginning to mid part of September, almost 3-4 weeks ago. She fell at home. She had immediate severe back pain and was seen at [facility]. X-rays were obtained. The patient was admitted to [facility] with COPD. She underwent an MRI scan of the lumbar spine and was asked see me in follow-up. She is now presenting for kyphoplasty of the T12 level. PROCEDURE IN DETAIL The patient was brought to the operating room and given limited sedation. She was rolled to prone position on the radiolucent frame. All pressure points were protected. The back was scrubbed with alcohol followed by Hibiclens followed by Chloraprep and draped sterilely. Antibiotics were given within a 1 hour time window and a time-out was done. AP and lateral radiographic images were used identifying the T12 level and comparing to preoperative studies. A single balloon approach from the left side was utilized. A sequence of local anesthesia, small incision and awl placed through the pedicle and into the vertebral body. A 20 mm Kyphon balloon was placed centrally. This was elevated while on the back table methacrylate was mixed. After approximately 11 minutes, the cement was injected. We had good fill without extravasation that was appreciated. The cement was allowed to harden. The tube was removed. Intraoperative x-rays were obtained. The patient's wound was anesthetized, irrigated and closed with 4-0 Vicryl followed by Dermabond. The patient was awaken and taken to recovery room in satisfactory condition. John Paul Carranza MD [facility]/ /3:39 PM /6:48 PM
== END | disposition home or self-care (01) ==
LOC: ESDC 12:59
PROVIDERS: ATTEND Orthopaedic Surgery Orthopaedic Surgery of the Spine
DX: S22.080A Wedge compression fracture of T11-T12 vertebra, initial encounter for closed fracture (principal)
CPT/HCPCS: 01936; 22513; 72070; J0690; J1885; J2250; J2270; J3010; J7120; Q9965

== ENCOUNTER 2016-11-18 12:53 | Observation (INO) | payer MEDICARE, OTHER ==
[~2016-11-18] VITALS: Ht 157.5 cm; Wt 65.8 kg
[~2016-11-18 12:53] MED LIST changes: -ACETAMINOPHEN/HYDROcodone 325 MG/5 MG TAB ONE; -ALPR.25 PO; -AZIT250T3 PO; -BUPIVACAINE/EPINEPHRINE 0.5% PF 30 ML VIAL ONE; -IOHEXOL 180 MG/ML 20 ML VIAL (for RAD DIAG) ONE; -KETOROLAC TROMETHAMINE 30 MG/ML (IVP) VIAL IV PUSH ONE; -LACTATED RINGER'S 1000 ML INJ 1,000 ML ONE; -LIDOCAINE 1%/EPINEPHrine 1:100,000 SOLN 20 ML VIAL ONE; -MIDAZOLAM HCL 2 MG/2 ML VIAL ONE; -MORPHINE SULFATE 4 MG/ML INJ ONE; -PRED20 PO; -PROPOFOL 200 MG/20 ML AMP IV ONE; -ceFAZolin 2 GM PREMIX 50 ML ONE
[2016-11-18 12:54] VITALS: BP 130/80; PULSE 118; RESP 28; TEMP 99.7; O2SAT 91
--- NOTE | 2016-11-18 13:05 | PD ---
Physical Exam Time Seen by Provider: 13:01 Narrative 71 y/o with copd, cad, htn presents with cough, generalized weakness, sob for 4 days. denies fevers/chills. Endorses some nausea, denies vomiting. Vital signs noted. Seen at triage desk. Awaiting bed placement. Data Data Last Documented VS Vital Signs Date Time Temp Pulse Resp B/P Pulse Ox O2 Delivery O2 Flow Rate FiO2 11/18/16 12:54 99.7 118 28 130/80 91 Room Air [facility] Medical Record Reviewed: Yes Supervised Visit with CLAUDIA: Mati Parker November 18, 2016 13:05
[2016-11-18] MEDS ORDERED: RESP: IPRATROPIUM 0.5 MG/2.5 ML NEB NEB ONE (15:15)
[2016-11-18] MEDS ORDERED: methylPREDNISolone SOD SUCC 125 MG/2 ML VIAL IVP ONE (15:15)
[2016-11-18] MEDS ORDERED: SODIUM CHLORIDE 0.9% FLUSH 10 ML FLUSH IVF PRN (15:15)
--- NOTE | 2016-11-18 15:21 | PD ---
HPI Chief Complaint: General Weakness Time Seen by Provider: 15:16 Travel History International Travel<30 days: No Contact w/Intl Traveler<30days: No Traveled to known affect area: No History of Present Illness HPI Patient comes in for evaluation COPD exacerbation that began last night. Patient states she's had a productive cough since last night coughing up phlegm. Patient states prior that she was is having generalized body aches over the past several days. Denies any known fevers, nausea, vomiting, abdominal pain, chest pain, or headaches. Patient states she been using her nebulizer at home last dose was last night with minimal improvement for symptoms. States her doctor, Dr. Squires, office told to come in to rule out pneumonia. Patient reports increasing dyspnea on exertion. Reports she is not able to lay flat but this is not new since has been ongoing for years. Patient states she is able take steroids, but does not like the way the make her feel. Patient does report some loose stool yesterday. Denies any history of CHF. PFSH Past Medical History Cancer: No Cardiac Catheterization: Yes Cardiovascular Problems: Yes High Cholesterol: Yes Congestive Heart Failure: No COPD: Yes Coronary Artery Disease: Yes (stint) Diabetes: No Diminished Hearing: No Diverticulitis: No Endocrine: No Gastrointestinal Disorders: Yes (GERD) GERD: Yes Genitourinary: Yes (RECENT UTI) Hepatitis: No Hiatal Hernia: No Hypertension: Yes Immune Disorder: No Musculoskeletal: Yes (NECK AND BACK PAIN ; FIBROMYALGIA) Neurologic: No Psychiatric: Yes Respiratory: Yes (COPD) Immunizations Current: Yes Thyroid Disease: No Menopausal: Yes Past Surgical History Abdominal Surgery: Yes (AGE 11 APPENDECTOMY) Body Medical Devices: CARDIAC STENT Cardiac Surgery: Yes (HEART CATH INSERTION STENT; RT LOWER EXTREMITY FEMOROPOPLITEAL BYPASS) Coronary Stent: Yes (X1 CIRC 1999) Gynecologic Surgery: Yes (ISRA SALPINGO-OOPHORECTOMY) Hysterectomy: Yes (PARTIAL) Oral Surgery: Yes (SINSUS SX) Other Surgery: Yes (fem-pop right 2001) Social History Alcohol Use: No (rare) Tobacco Use: No (1/2 PPD x 48+ years) Substance Use: No Allergies-Medications (Allergen,Severity, Reaction): Coded Allergies: Advair (Verified Allergy, Severe, 11/18/16) SHAKING ALL OVER; INCREASE BLOOD PRESSURE ; SEVERE REACTION Albuterol (Verified Allergy, Severe, SHAKES & HIGH BP, 11/18/16) SEVERE REACTION Quinolones (Verified Allergy, Severe, 11/18/16) SHAKES ALL OVER; ELEVATED BLOOD PRESSURE Serevent (Verified Allergy, Severe, 11/18/16) SHAKES ALL OVER; ELEVATES BLOOD PRESSURE; SEVERE REACTION Sulfa (Verified Allergy, Severe, HIVES, 11/18/16) HIVES; THROAT SWELLING; SEVERE REACTION Reported Meds & Prescriptions Reported Meds & Active Scripts Active Ultram (Tramadol HCl) 50 Mg Tab 50 Mg PO Q6H PRN Prednisone 50 Mg Tab 50 Mg PO DAILY 50 MG ORALLY DAILY X 2, THEN 40 MG ORALLY DAILY X 2, THEN 20 MG ORALLY X 2 DAYS, THEN 10 MG ORALLY X 2 DAYS. Flexeril (Cyclobenzaprine HCl) 10 Mg Tab 5 Mg PO Q8HR Reported Effexor (Venlafaxine HCl) 75 Mg Tab 150 Mg PO DAILY Omeprazole 20 Mg Tab 20 Mg PO DAILY Lisinopril 20 Mg Tab 20 Mg PO DAILY Gemfibrozil 600 Mg Tab 600 Mg PO BIDAC Take 30 minutes prior to breakfast and dinner. Gabapentin 100 Mg Cap 100 Mg PO DAILY B-12 (Cyanocobalamin) 1,000 Mcg Lozg 1,000 Mcg BUCCAL DAILY Cilostazol 100 Mg Tab 100 Mg PO BID D3 Super Strength (Cholecalciferol) 2,000 Unit Cap 2,000 Units PO DAILY Calcium Ascorbate 500 Mg Tab 600 Mg PO Lipitor (Atorvastatin Calcium) 40 Mg Tab 40 Mg PO HS Aspirin 81 Mg Chew 81 Mg CHEW DAILY Amlodipine (Amlodipine Besylate) 5 Mg Tab 5 Mg PO DAILY Review of Systems Except as stated in HPI: all other systems reviewed are Neg Physical Exam Narrative GENERAL: Well-developed, overly nourished, in no acute distress, and non-ill appearing. SKIN: Focused skin assessment warm and dry. HEAD: Atraumatic. Normocephalic. EYES: Pupils equal and round. EOMI. No scleral icterus. No injection or drainage. ENT: No nasal bleeding or discharge. Mucous membranes pink and moist. NECK: Trachea midline. Supple. No nuclear rigidity. CARDIOVASCULAR: Regular rate and rhythm. No murmur appreciated. RESPIRATORY: No accessory muscle use. No respiratory distress. Expiratory wheezes noted throughout. Breath sounds equal bilaterally. Patient speaking in full sentences. GASTROINTESTINAL: Abdomen soft, non-tender, nondistended. Hepatic and splenic margins not palpable. Normal bowel sounds 4. No pulsatile mass. MUSCULOSKELETAL: No obvious deformities. No clubbing. No cyanosis. No edema. Full range of motion. NEUROLOGICAL: Awake and alert. No obvious cranial nerve deficits. Motor grossly within normal limits. Normal speech. PSYCHIATRIC: Appropriate mood and affect; insight and judgment normal. Data Data Last Documented VS Vital Signs Date Time Temp Pulse Resp B/P Pulse Ox O2 Delivery O2 Flow Rate FiO2 11/18/16 12:54 99.7 118 28 130/80 91 Room Air Orders Electrocardiogram (11/18/16 13:05) Complete Blood Count With Diff (11/18/16 15:09) Basic Metabolic Panel (Bmp) (11/18/16 15:09) Act Partial Throm Time (Ptt) (11/18/16 15:09) Prothrombin Time / Inr (Pt) (11/18/16 15:09) Magnesium (Mg) (11/18/16 15:09) Urinalysis - C+S If Indicated (11/18/16 15:09) Iv Access Insert/Monitor (11/18/16 15:09) Ecg Monitoring (11/18/16 15:09) Oximetry (11/18/16 15:09) Oxygen Administration (11/18/16 15:09) Chest, Single Ap (11/18/16 15:09) Sodium Chloride 0.9% Flush (Ns Flush) (11/18/16 15:15) Methylprednisolone So Succ Inj (Solumedr (11/18/16 15:15) Ipratropium Neb (Atrovent Neb) (11/18/16 15:15) Lactic Acid Sepsis Protocol (11/18/16 16:40) Blood Culture (11/18/16 16:40) Sodium Chlor 0.9% 1000 Ml Inj (Ns 1000 M (11/18/16 16:40) Ceftriaxone Inj (Rocephin Inj) (11/18/16 16:45) Azithromycin Inj (Zithromax Inj) (11/18/16 16:45) Admit Order (Ed Use Only) (11/18/16 16:50) Labs Laboratory Tests Test 11/18/16 11/18/16 15:15 15:20 Urine Color YELLOW Urine Turbidity CLEAR Urine pH 5.5 Urine Specific [place] 1.030 Urine Protein 30 mg/dL Urine Glucose (UA) NEG mg/dL Urine Ketones 10 mg/dL Urine Occult Blood NEG Urine Nitrite NEG Urine Bilirubin NEG Urine Urobilinogen LESS THAN 2.0 MG/DL Urine Leukocyte Esterase NEG Urine RBC 1 /hpf Urine WBC 1 /hpf Urine Squamous Epithelial 2 /hpf Cells Urine Bacteria RARE /hpf Urine Mucus MANY /lpf Microscopic Urinalysis Comment CULT NOT INDICATED White Blood Count 17.1 TH/MM3 Red Blood Count 4.52 MIL/MM3 Hemoglobin 13.8 GM/DL Hematocrit 39.9 % Mean Corpuscular Volume 88.3 FL Mean Corpuscular Hemoglobin 30.5 PG Mean Corpuscular Hemoglobin 34.6 % Concent Red Cell Distribution Width 13.3 % Platelet Count 405 TH/MM3 Mean Platelet Volume 8.0 FL Neutrophils (%) (Auto) 71.6 % Lymphocytes (%) (Auto) 14.5 % Monocytes (%) (Auto) 12.6 % Eosinophils (%) (Auto) 0.5 % Basophils (%) (Auto) 0.8 % Neutrophils # (Auto) 12.2 TH/MM3 Lymphocytes # (Auto) 2.5 TH/MM3 Monocytes # (Auto) 2.1 TH/MM3 Eosinophils # (Auto) 0.1 TH/MM3 Basophils # (Auto) 0.1 TH/MM3 CBC Comment DIFF FINAL Differential Comment Prothrombin Time 11.1 SEC Prothromb Time International 1.0 RATIO Ratio Activated Partial 31.7 SEC Thromboplast Time Sodium Level 132 MEQ/L Potassium Level 3.5 MEQ/L Chloride Level 95 MEQ/L Carbon Dioxide Level 25.2 MEQ/L Anion Gap 12 MEQ/L Blood Urea Nitrogen 11 MG/DL Creatinine 0.87 MG/DL Estimat Glomerular Filtration 64 ML/MIN Rate Random Glucose 91 MG/DL Calcium Level 10.0 MG/DL Magnesium Level 1.9 MG/DL [facility] Medical Decision Making Medical Screen Exam Complete: Yes Emergency Medical Condition: Yes Differential Diagnosis Pneumonia, COPD exacerbation, electrolyte abnormality, other Narrative Course Patient seen and examined. Laboratory studies were obtained and reviewed. Discussed patient with Dr. La, who saw and evaluated the patient and recommends ambulatory trial and if the patient does well she will be discharged home for follow-up as an outpatient with oral meds if patient does not do well patient to be admitted for further treatment and evaluation. Patient is agreeable with this. Patient was ambulated by apprentice instrument technician reports difficulty primarily ER secondary to dyspnea having to stop multiple times in order go to make it back to her room. Patient is agreeable for admission. All questions were answered. Physician Communication Physician Communication [phone] Clemente, who is agreeable to admit patient for Dr. Alston. Diagnosis Primary Impression: COPD exacerbation Admitting Information Admitting Physician Requests: Observation Condition: Stable Regan Trevizo November 18, 2016 15:21 Regan Trevizo November 18, 2016 15:21
[2016-11-18 15:47] LABS: BACTERIA, URINE RARE /hpf; BLOOD, URINE NEG (NEG); GLUCOSE,URINE NEG (NEG); KETONE, URINE 10 mg/dL (NEG); MUCUS URINE MANY /lpf (OCC); NITRITE,URINE NEG (NEG); PH, URINE 5.5 (5.0-8.5); SQUAMOUS EPITHELIAL CELL URINE 2 /hpf (0-5); URINE COLOR YELLOW (YELLW/STRAW)
[2016-11-18 15:50] LABS: COMMENT (UR) CULT NOT INDICATED; CULTURE IF INDICATED CULT NOT INDICATED
[2016-11-18 15:52] LABS: APTT (PATIENT) 31.7 SEC (24.3-30.1); PROTHROMBIN TIME - PATIENT 11.1 SEC (9.8-11.6)
--- NOTE | 2016-11-18 15:55 | RADRPT ---
EXAM DATE/TIME: 11/18/2016 15:24 [place] COMPARISON: CHEST SINGLE AP, October 10, 2016, 0:36. INDICATIONS : Shortness of breath. MEDICAL HISTORY : Hypertension. Chronic obstructive pulmonary disease. SURGICAL HISTORY : None. ENCOUNTER: Initial ACUITY: 4 - 6 days PAIN SCORE: 0/10 LOCATION: Bilateral chest FINDINGS: A single view of the chest demonstrates the lungs to be symmetrically aerated without evidence of mas s, infiltrate or effusion. The cardiomediastinal contours are unremarkable. Osseous structures are intact. CONCLUSION: No acute disease. Alvarado Canela Jr., MD on November 18, 2016 at 15:52 Board Certified Radiologist. This report was verified electronically.
[2016-11-18 16:10] LABS: AUTOMATED NEUTROPHIL # 12.2 TH/MM3 (1.8-7.7); BASOPHIL # 0.1 TH/MM3 (0-0.2); BASOPHIL % 0.8 % (0.0-2.0); EOSINOPHIL # 0.1 TH/MM3 (0-0.4); EOSINOPHIL % 0.5 % (0.0-4.0); HEMATOCRIT 39.9 % (35.0-46.0); HEMO FLAGS DIFF FINAL; LYMPH % 14.5 % (9.0-44.0); LYMPHOCYTE # 2.5 TH/MM3 (1.0-4.8); MEAN CELL VOLUME 88.3 FL (80.0-100.0); MEAN CORPUSCULAR HEMOGLOBIN 30.5 PG (27.0-34.0); MEAN CORPUSCULAR HGB CONC 34.6 % (32.0-36.0); MONO % 12.6 % (0.0-8.0); NEUT % 71.6 % (16.0-70.0); PLATELET COUNT 405 TH/MM3 (150-450); RED BLOOD COUNT 4.52 MIL/MM3 (4.00-5.30); RED CELL DISTRIBUTION WIDTH 13.3 % (11.6-17.2); WHITE BLOOD COUNT 17.1 TH/MM3 (4.0-11.0)
[2016-11-18 16:12] LABS: BICARBONATE 25.2 MEQ/L (21.0-32.0); MAGNESIUM 1.9 MG/DL (1.5-2.5); POTASSIUM 3.5 MEQ/L (3.5-5.1)
[2016-11-18] MEDS ORDERED: AZITHROMYCIN INJ 500 MG in SODIUM CHLOR 0.9% 250 ML INJ 250 ML IV ONE (16:45)
[2016-11-18] MEDS ORDERED: cefTRIAXone INJ 1,000 MG in SODIUM CHLORIDE 0.9% INJ 100 ML IV ONE (16:45)
[2016-11-18] MEDS ORDERED: PILL SPLITTER OTHER PRN (17:00)
[2016-11-18] MEDS ORDERED: NALOXONE HCL 0.4 MG/ML AMP IV PRN (17:00)
[2016-11-18] MEDS ORDERED: SODIUM CHLORIDE 0.9% FLUSH 10 ML FLUSH IV FLUSH PRN (17:00)
[2016-11-18] MEDS ORDERED: MAGNESIUM HYDROXIDE SUSP 30 ML CUP PO PRN (17:00)
[2016-11-18] MEDS ORDERED: ONDANSETRON HCL 4 MG/2 ML VIAL IVP PRN (17:00)
[2016-11-18] MEDS ORDERED: RESP: IPRATROPIUM 0.5 MG/2.5 ML NEB NEB PRN (17:00)
[2016-11-18] MEDS ORDERED: SENNOSIDES 8.6 MG TAB PO PRN (17:00)
[2016-11-18] MEDS: SODIUM CHLOR 0.9% 1000 ML INJ 1,000 ML IV SCH (17:20)
[2016-11-18 17:26] VITALS: RESP 21; O2SAT 94
[2016-11-18] MEDS: HEPARIN SODIUM - SQ 10,000 UNITS/ML VIAL SQ SCH (18:00)
--- NOTE | 2016-11-18 18:24 | EKG ---
Date Performed: 11/18/2016 Time Performed: 13:18:07 PTAGE: 71 years EKG: SINUS TACHYCARDIA WITH FREQUENT VENTRICULAR PREMATURE COMPLEXES ABNORMAL RHYTHM ECG PREVIOUS TRACING : 10/10/2016 00.23 Compared to previous tracing, PVCs are now present. DOCTOR: Eric Mcdowell Interpretating Date/Time 11/18/2016 18:22:50
--- NOTE | 2016-11-18 19:20 | HHI.PR ---
Objective Objective Results - Vital Signs Date Time Temp Pulse Resp B/P Pulse Ox O2 Delivery O2 Flow Rate FiO2 11/18/16 17:26 94 Room Air 11/18/16 17:26 21 94 Room Air 11/18/16 12:54 99.7 118 28 130/80 91 Room Air Result Diagram: 11/18/16 1520 11/18/16 1520 Other Results Laboratory Tests Test 11/18/16 11/18/16 11/18/16 15:15 15:20 17:05 Urine Color YELLOW Urine Turbidity CLEAR Urine pH 5.5 Urine Specific [place] 1.030 Urine Protein 30 Urine Glucose (UA) NEG Urine Ketones 10 Urine Occult Blood NEG Urine Nitrite NEG Urine Bilirubin NEG Urine Urobilinogen LESS THAN 2.0 Urine Leukocyte Esterase NEG Urine RBC 1 Urine WBC 1 Urine Squamous Epithelial 2 Cells Urine Bacteria RARE Urine Mucus MANY Microscopic Urinalysis Comment CULT NOT INDICATED White Blood Count 17.1 Red Blood Count 4.52 Hemoglobin 13.8 Hematocrit 39.9 Mean Corpuscular Volume 88.3 Mean Corpuscular Hemoglobin 30.5 Mean Corpuscular Hemoglobin 34.6 Concent Red Cell Distribution Width 13.3 Platelet Count 405 Mean Platelet Volume 8.0 Neutrophils (%) (Auto) 71.6 Lymphocytes (%) (Auto) 14.5 Monocytes (%) (Auto) 12.6 Eosinophils (%) (Auto) 0.5 Basophils (%) (Auto) 0.8 Neutrophils # (Auto) 12.2 Lymphocytes # (Auto) 2.5 Monocytes # (Auto) 2.1 Eosinophils # (Auto) 0.1 Basophils # (Auto) 0.1 CBC Comment DIFF FINAL Differential Comment Prothrombin Time 11.1 Prothromb Time International 1.0 Ratio Activated Partial 31.7 Thromboplast Time Sodium Level 132 Potassium Level 3.5 Chloride Level 95 Carbon Dioxide Level 25.2 Anion Gap 12 Blood Urea Nitrogen 11 Creatinine 0.87 Estimat Glomerular Filtration 64 Rate Random Glucose 91 Calcium Level 10.0 Magnesium Level 1.9 Lactic Acid Level 1.1 Date/Time Procedure Status Source Growth 11/18/16 17:10 Aerobic Blood Culture Received Blood Peripheral Pending 11/18/16 17:10 Anaerobic Blood Culture Received Blood Peripheral Pending Physical Exam Physical Exam pt is seen & examined d.w PT d/.w Danae see Orders see H&P by maria esther galdamez f/u Brian Alston MD November 18, 2016 19:20
[2016-11-18 20:00] VITALS: BP 127/79; PULSE 115; RESP 19; TEMP 98.3; O2SAT 96
[2016-11-18 20:17] VITALS: O2SAT 95
[2016-11-18] MEDS: RESP: IPRATROPIUM 0.5 MG/2.5 ML NEB NEB SCH (20:17)
[2016-11-18 20:55] LABS: CREATINE KINASE 62 U/L (26-192)
[2016-11-18 21:06] VITALS: PULSE 102
[2016-11-18] MEDS: ATORVASTATIN 40 MG TAB PO SCH (21:23)
[2016-11-18] MEDS: CYCLOBENZAPRINE HCL 10 MG TAB PO SCH (21:23)
[2016-11-18] MEDS: traMADol HCL 50 MG TAB PO PRN (21:24)
[2016-11-18] MEDS: SODIUM CHLORIDE 0.9% FLUSH 10 ML FLUSH IV FLUSH SCH (21:26)
[2016-11-18] MEDS: methylPREDNISolone SOD SUCC 125 MG/2 ML VIAL IV PUSH SCH (21:27)
[2016-11-18] MEDS ORDERED: methylPREDNISolone SOD SUCC 125 MG/2 ML VIAL IV PUSH SCH (22:00)
[2016-11-18 23:33] LABS: CREATINE KINASE 63 U/L (26-192)
[2016-11-19] VITALS (10 sets, daily range): BP systolic 93–134; BP diastolic 50–68; PULSE 91–114; RESP 16–18; TEMP 97.4–98.4; O2SAT 90–97
[2016-11-19] MEDS: CILOSTAZOL 100 MG TAB PO SCH ×3 (00:18→20:55)
[2016-11-19] MEDS: SODIUM CHLOR 0.9% 1000 ML INJ 1,000 ML IV SCH ×3 (00:19→22:40)
[2016-11-19] MEDS: RESP: IPRATROPIUM 0.5 MG/2.5 ML NEB NEB SCH ×4 (03:36→21:25)
[2016-11-19] MEDS: methylPREDNISolone SOD SUCC 125 MG/2 ML VIAL IV PUSH SCH ×2 (04:58→09:16)
[2016-11-19] MEDS: HEPARIN SODIUM - SQ 10,000 UNITS/ML VIAL SQ SCH ×2 (04:58→18:05)
[2016-11-19] MEDS: CYCLOBENZAPRINE HCL 10 MG TAB PO SCH ×3 (05:00→20:55)
[2016-11-19] MEDS: GEMFIBROZIL 600 MG TAB PO SCH ×2 (06:53→18:02)
--- NOTE | 2016-11-19 08:32 | MH ---
cc: EVELIN ALSTON MD DATE OF ADMISSION 11/18/2016 DATE OF 1945 CHIEF COMPLAINT General complaint, shortness of breath and body aches x 4 days. Travel in the last 30 days, none. HISTORY OF PRESENT ILLNESS This is a pleasant 71-year-old white female who states that she has not been out of bed until today for the past four days. She complains of body aches, possible low grade fever, no appetite and diarrhea. She states that she has also been coughing and has had extreme exertional dyspnea today to the point that she cannot lie flat. The patient called her physician's office, Dr. Squires who advised her to come into the emergency room for further evaluation. The patient does complain of copious sputum production yesterday grayish-green in nature. She denies any seasonal allergies. She is currently alert, oriented and a good historian. PAST MEDICAL HISTORY Medical history includes: 1. Coronary artery disease. 2. Hyperlipidemia. 3. COPD. 4. Previous long-term tobacco use. 5. Gastroesophageal reflux disease. 6. Recent urinary tract infection. 7. Hypertension. 8. Chronic pain with fibromyalgia. PAST SURGICAL HISTORY 1. Appendectomy. 2. Cardiac stents. 3. Cardiac catheterizations. 4. Right lower extremity fem pop bypass. 5. Bilateral salpingo-oophorectomy. 6. Partial hysterectomy. 7. Sinus surgery. ALLERGIES ADVAIR, ALBUTEROL, QUINOLONES, SEREVENT AND SULFA. MEDICATIONS Active: 1. Ultram. 2. Prednisone. 3. Flexeril. 4. Omeprazole. 5. Gemfibrozil. 6. Gabapentin. 7. Vitamin B12. 8. Vitamin D. 9. Calcium. 10. Lipitor. 11. Aspirin. 12. Amlodipine. 13. Cilostazol. SOCIAL HISTORY The patient currently is single but lives with her daughter and her two sons. She partakes in rare usage of alcohol. Tobacco abuse for 48 years plus but quit 5 years ago. No illicit drugs. REVIEW OF SYSTEMS 12-point review was done. Positives include decreased appetite, diarrhea, body aches, possible low grade fever, productive sputum exertional dyspnea. Cannot lay flat in the bed. Other systems negative or unremarkable. PHYSICAL EXAMINATION VITAL SIGNS: Temperature is 99.7, pulse 118, respiratory rate 28, blood pressure 130/80, O2 sat 91% on room air. The patient will be placed on O2 at 2 liters per nasal cannula. GENERAL: Slim, but well-nourished white female looks to be younger than her stated age, resting on the stretcher, sitting up at 90 degrees. HEENT: Atraumatic, normocephalic. Pupils equal, round, reactive to light and accommodation. No scleral icterus. No nasal drainage. Mucous membranes are pink and moist. NECK: Supple. CARDIOVASCULAR: S1-S2, regular rate and rhythm. No murmurs, rubs or gallops. RESPIRATORY: Shows diminished sounds throughout her posterior middle to lower lobes. She does have some mild expiratory wheezes noted throughout her precordium. ABDOMEN: Soft, nontender, nondistended. Active bowel sounds in all four quads. MUSCULOSKELETAL: She moves her extremities with purpose. She has no cyanosis. No clubbing. No edema. NEUROLOGIC: Awake, alert, oriented. Speech is normal and clear. PSYCHIATRIC: Appropriate mood and affect. SKIN: Warm and dry. Turgor is good. LABORATORY DATA Diagnostic data, WBC count 17.1, RBC 4.52, hemoglobin 13.8, hematocrit 39.9, platelet count 405. Neutrophil count auto percentage 71.6, lymphocyte 14.5, monocyte 12.6. PT INR is 1. Chemistry sodium 132, potassium 3.5, chloride 95, carbon dioxide 25.2, anion gap 12, BUN 11, creatinine 0.87, GFR 64, random glucose 91, calcium is 10, magnesium 1.9. Urine is yellow clear, pH is 5.5, specific gravity 1.030, protein is high with 30. Negative glucose. Ketones are 10 and high. Occult blood negative. Nitrites negative. Bilirubin negative. Leukocyte esterase negative. Culture is not indicated. IMAGING STUDIES Shows chest x-ray with no acute changes. ASSESSMENT/PLAN 1. COPD exacerbation. 2. Possible pneumonia, rule out. 3. Leukocytosis with possible pneumonia. 4. Hyponatremia. 5. Hypertension. 6. History of fibromyalgia. 7. History of cardiovascular disease. 8. Recent traumatic fracture of L1 and compression fracture of T12. Our plan is to admit for observation. We will monitor her vital signs, give her heart healthy diet. She can be out of bed with assistance but only with assistance to monitor the patient's safety. She will receive DuoNeb treatments, IV methyl prednisolone. We will her on azithromycin and she received Rocephin and azithromycin in the emergency room. DVT prophylaxis with heparin. Gastroesophageal reflux disease prophylaxis with . Will reconcile her medications as warranted. We will monitor her labs in the morning, especially with special attention to her leukocytosis. The patient is to have the head of bed elevated at least 45 degrees. To my knowledge she is full code, full aggressive care and we will follow. Dictated by: AP Charles Evelin Alston MD MNLona/JUVENTINO /5:30 PM /8:32 AM pt is seen & examined d.w PT d/.bettye Fink see Orders see H&P by maria esther galdamez f/u Evelin Alston MD November 18, 2016 19:20 MTDD
[2016-11-19 08:48] LABS: AUTOMATED NEUTROPHIL # 10.2 TH/MM3 (1.8-7.7); BASOPHIL % 0.3 % (0.0-2.0); HEMATOCRIT 37.5 % (35.0-46.0); LYMPH % 11.8 % (9.0-44.0); LYMPHOCYTE # 1.4 TH/MM3 (1.0-4.8); MEAN CELL VOLUME 90.1 FL (80.0-100.0); MEAN CORPUSCULAR HEMOGLOBIN 30.5 PG (27.0-34.0); MEAN CORPUSCULAR HGB CONC 33.8 % (32.0-36.0); MONO % 4.1 % (0.0-8.0); NEUT % 83.8 % (16.0-70.0); PLATELET COUNT 392 TH/MM3 (150-450); RED BLOOD COUNT 4.16 MIL/MM3 (4.00-5.30); RED CELL DISTRIBUTION WIDTH 13.3 % (11.6-17.2); WHITE BLOOD COUNT 12.2 TH/MM3 (4.0-11.0)
[2016-11-19 08:56] LABS: HEMO FLAGS AUTO DIFF
[2016-11-19] MEDS ORDERED: NON-FORMULARY DRUG (Omeprazole 20 MG) PO SCH (09:00)
[2016-11-19] MEDS: SODIUM CHLORIDE 0.9% FLUSH 10 ML FLUSH IV FLUSH SCH ×2 (09:00→20:55)
[2016-11-19] MEDS ORDERED: NON-FORMULARY DRUG (Cyanocobalamin (B-12) 1,000 MCG) BUCCAL SCH (09:00)
[2016-11-19] MEDS ORDERED: VENLAFAXINE 150 MG PO SCH (09:00)
[2016-11-19 09:09] LABS: BICARBONATE 24.2 MEQ/L (21.0-32.0); POTASSIUM 3.7 MEQ/L (3.5-5.1)
[2016-11-19] MEDS: LISINOPRIL 20 MG TAB PO SCH (09:15)
[2016-11-19] MEDS: VENLAFAXINE HCL XR 75 MG CAP PO SCH (09:15)
[2016-11-19] MEDS: CHOLECALCIFEROL (VIT D3) 1000 UNIT TAB PO SCH (09:15)
[2016-11-19] MEDS: ASPIRIN 81 MG CHEW TAB CHEW SCH (09:15)
[2016-11-19] MEDS: PANTOPRAZOLE SOD 20 MG DELAYED RELEASE TAB PO SCH (09:15)
[2016-11-19] MEDS: GABAPENTIN 100 MG CAP PO SCH (09:15)
[2016-11-19] MEDS: CYANOCOBALAMIN 1,000 MCG TAB PO SCH (09:16)
[2016-11-19] MEDS: amLODIPine BESYLATE 5 MG TAB PO SCH (09:16)
[2016-11-19 09:29] LABS: SCAN/DIFF AUTO DIFF CONFIRMED
[2016-11-19] MEDS: traMADol HCL 50 MG TAB PO PRN (09:30)
--- NOTE | 2016-11-19 12:43 | HHI.PR ---
Subjective Remarks resting in bed states she has been up ambulating and up in chair Mild dyspnea and tremors pink color pink afebrile (Danae Samayoa) Objective Objective Results - Vital Signs Date Time Temp Pulse Resp B/P Pulse Ox O2 Delivery O2 Flow Rate FiO2 11/19/16 09:50 95 Nasal Cannula 2.00 11/19/16 04:00 97.4 91 18 112/55 94 11/19/16 03:37 97 Nasal Cannula 2.00 11/19/16 00:00 97.6 103 17 134/68 93 11/18/16 20:17 95 Nasal Cannula 2.00 11/18/16 20:00 98.3 115 19 127/79 96 11/18/16 19:45 Nasal Cannula 2.00 11/18/16 17:26 94 Room Air 11/18/16 17:26 21 94 Room Air 11/18/16 12:54 99.7 118 28 130/80 91 Room Air I/O 11/18/16 11/18/16 11/18/16 11/19/16 11/19/16 11/19/16 07:00 15:00 23:00 07:00 15:00 23:00 Intake Total 240 ml 240 ml Balance 240 ml 240 ml Intake Oral 240 ml 240 ml # Voids 1 1 (Danae Samayoa) Result Diagram: 11/19/16 0808 11/19/16 0808 Other Results Last Impressions Chest X-Ray 11/18/16 1509 Signed Impressions: Service Date/Time: Friday, November 18, 2016 15:24 - CONCLUSION: No acute disease. Alvarado Canela Jr., MD Medications and IVs Administered Medications Medications (Trade) Dose Ordered Sig/Tay Route PRN Reason Start Time Stop Time Status Last Admin Dose Admin Sodium Chloride (NS 1000 ml Inj) 1,000 ml @ 100 mls/hr Q10H IV 11/18/16 16:40 11/19/16 00:19 Amlodipine Besylate (Norvasc) 5 mg DAILY PO 11/19/16 09:00 11/19/16 09:16 Aspirin (Aspirin Chew) 81 mg DAILY CHEW 11/19/16 09:00 11/19/16 09:15 Atorvastatin Calcium (Lipitor) 40 mg HS PO 11/18/16 21:00 11/18/16 21:23 Cholecalciferol (Vitamin D3) 2,000 units DAILY PO 11/19/16 09:00 11/19/16 09:15 Cilostazol (Pletal) 100 mg BID PO 11/18/16 21:00 11/19/16 09:00 Cyclobenzaprine HCl (Flexeril) 5 mg Q8HR PO 11/18/16 22:00 11/18/16 21:23 Gabapentin (Neurontin) 100 mg DAILY PO 11/19/16 09:00 11/19/16 09:15 Gemfibrozil (Lopid) 600 mg BIDAC PO 11/19/16 07:00 11/19/16 06:53 Lisinopril (Prinivil) 20 mg DAILY PO 11/19/16 09:00 11/19/16 09:15 Tramadol HCl (Ultram) 50 mg Q6H PRN PO PAIN SCALE 6 TO 10 11/18/16 17:00 11/19/16 09:30 Sodium Chloride (NS Flush) 2 ml BID IV FLUSH 11/18/16 21:00 11/19/16 09:00 Heparin Sodium (Porcine) (Heparin Inj) 5,000 units Q12H SQ 11/18/16 18:00 11/19/16 04:58 Cyanocobalamin (Vitamin B12) 1,000 mcg DAILY PO 11/19/16 09:00 11/19/16 09:16 Pantoprazole Sodium (Protonix) 20 mg DAILY PO 11/19/16 09:00 11/19/16 09:15 Venlafaxine HCl (Effexor Xr) 150 mg DAILY PO 11/19/16 09:00 11/19/16 09:15 Methylprednisolone Sodium Succinate (SoluMEDROL INJ) 60 mg Q6H IV PUSH 11/18/16 22:00 11/19/16 09:16 (Danae Samayoa) ROS General: Weakness (generalized), Other (10 point ROS done. Positives noted, otherwise unremarkable) Pulmonary: Cough, SOB (exertional) GI: BM (bowel regimen) (Danae Samayoa) Physical Exam Physical Exam PHYSICAL EXAMINATION GENERAL: This is a well-developed, well-nourished female who appears to be in no acute distress. She awakens easily HEAD: Normocephalic without any lesion or mass noted. Facial features appear symmetric. OROPHARYNGEAL: Oropharynx without erythema or edema. NECK: Supple. No nuchal rigidity or lymphadenopathy. Trachea midline without deviation. CARDIAC: Regular rhythm, regular rate, S1 and S2 are heard. LUNGS: diminished to auscultation bilaterally. mild wheeze, no rhonchi ABDOMEN: Soft, nontender, no organomegaly or masses. Bowel sounds are heard in all four quadrants. EXTREMITIES: no edema. Pulses equal bilateral. no cyanosis. NEUROLOGICAL: Patient mood and affect appropriate. No focal deficit SKIN:Warm and moist Objective Remarks I need a regular diet (Danae Samayoa) A/P Assessment and Plan 1. COPD exacerbation. 2. Possible pneumonia, rule out. 3. Leukocytosis with possible pneumonia. 4. Hyponatremia. 5. Hypertension. 6. History of fibromyalgia. 7. History of cardiovascular disease. 8. Recent traumatic fracture of L1 and compression fracture of T12. vital signs reviewed, normal trends today. HTN controlled, tachycardia controlled, labs reviewed, leukocytosis improving, ut still has lt shift Hyponaremia resolved with IVF copd , duonebs, O2 , steroids, poss. pna, IV antibiotics continue, enc. to cough, deep breath increase activity to chair and rm, kline if possible. Need to access her tolerance, due to Recent fx in back, O 2 2L prn. Hx of CV disease, patient requested regular diet, and her reg. coffee. Changed. DVT and pud prophy. Discharge Planning home poss in day or 2. Discussed With: Nurse, Family (pt.), Other (dr alston, seen on his behalf) ( Danae Samayoa) Assessment and Plan pt is seen & examined d/w PT , she wants regular diet / Coffee blanca change her diet to regular per her wishes d/w Danae change abx to po taper steroids cont current tx ambulate ss for d.c planning will f/u (Brian Alston MD) Danae Samayoa November 19, 2016 12:43 Brian Alston MD November 19, 2016 13:08
[2016-11-19] MEDS: methylPREDNISolone SOD SUCC 40 MG/1 ML VIAL IV PUSH SCH (18:00)
[2016-11-19] MEDS: AZITHROMYCIN 250 MG TAB PO SCH (18:02)
[2016-11-19] MEDS: ATORVASTATIN 40 MG TAB PO SCH (20:55)
[2016-11-20] VITALS (8 sets, daily range): BP systolic 92–120; BP diastolic 53–81; PULSE 92–110; RESP 18–20; TEMP 97.3–98.4; O2SAT 91–98
[2016-11-20] MEDS ORDERED: ASPIRIN 81 MG CHEW TAB PO ONE (01:15)
[2016-11-20] MEDS ORDERED: MORPHINE SULFATE 4 MG/ML INJ IV PRN (01:15)
[2016-11-20] MEDS: traMADol HCL 50 MG TAB PO PRN (01:18)
[2016-11-20] MEDS: ACETAMINOPHEN 325 MG TAB PO PRN ×3 (01:19→20:19)
[2016-11-20] MEDS: methylPREDNISolone SOD SUCC 40 MG/1 ML VIAL IV PUSH SCH ×3 (01:28→18:00)
[2016-11-20] MEDS: RESP: IPRATROPIUM 0.5 MG/2.5 ML NEB NEB SCH ×4 (03:25→21:12)
[2016-11-20] MEDS: CYCLOBENZAPRINE HCL 10 MG TAB PO SCH ×3 (05:24→20:19)
[2016-11-20] MEDS: HEPARIN SODIUM - SQ 10,000 UNITS/ML VIAL SQ SCH ×2 (05:24→18:00)
[2016-11-20] MEDS: GEMFIBROZIL 600 MG TAB PO SCH ×2 (06:13→15:55)
--- NOTE | 2016-11-20 08:36 | EKG ---
Date Performed: 11/20/2016 Time Performed: 01:04:42 PTAGE: 71 years EKG: Sinus tachycardia rSr'(V1) - probable normal variant Borderline ECG NO PREVIOUS TRACING DOCTOR: Garry Owens Interpretating Date/Time 11/20/2016 08:34:47
[2016-11-20] MEDS: CILOSTAZOL 100 MG TAB PO SCH ×2 (09:00→20:19)
[2016-11-20] MEDS: SODIUM CHLORIDE 0.9% FLUSH 10 ML FLUSH IV FLUSH SCH ×2 (09:00→20:18)
--- NOTE | 2016-11-20 09:13 | EKG ---
Date Performed: 11/19/2016 Time Performed: 14:31:22 PTAGE: 71 years EKG: Sinus tachycardia. Normal ECG except for rate PREVIOUS TRACING : 11/18/2016 13.18 DOCTOR: Garry Owens Interpretating Date/Time 11/20/2016 09:11:15
[2016-11-20] MEDS: SODIUM CHLOR 0.9% 1000 ML INJ 1,000 ML IV SCH (09:26)
[2016-11-20] MEDS: VENLAFAXINE HCL XR 75 MG CAP PO SCH (09:27)
[2016-11-20] MEDS: CHOLECALCIFEROL (VIT D3) 1000 UNIT TAB PO SCH (09:35)
[2016-11-20] MEDS: CYANOCOBALAMIN 1,000 MCG TAB PO SCH (09:36)
[2016-11-20] MEDS: PANTOPRAZOLE SOD 20 MG DELAYED RELEASE TAB PO SCH (09:36)
[2016-11-20] MEDS: GABAPENTIN 100 MG CAP PO SCH (09:36)
[2016-11-20] MEDS: LISINOPRIL 20 MG TAB PO SCH (09:36)
[2016-11-20] MEDS: amLODIPine BESYLATE 5 MG TAB PO SCH (09:36)
[2016-11-20] MEDS: ASPIRIN 81 MG CHEW TAB CHEW SCH (09:36)
[2016-11-20] MEDS ORDERED: BENZONATATE 100 MG CAP PO PRN (12:00)
--- NOTE | 2016-11-20 12:04 | HHI.PR ---
Subjective Subjective Remarks inc. sob with activity dry cough had cp yesterday, sudden she was sleeping. started in epigastric area radiated to left shoulder and jaw had before, same pattern, did not seek medication attention saw Dr. Eli 7 months ago, had STT last year that was negative. Has hx of CAD and stent no cp at this time. Review of Systems Constitutional Constitutional Remarks 12 point ROS completed, negative except as noted above Vitals/Results Intake & Output 11/19/16 11/19/16 11/20/16 15:00 23:00 07:00 Intake Total 815 ml 120 ml 240 ml Balance 815 ml 120 ml 240 ml Intake Oral 360 ml 120 ml 240 ml IV Total 455 ml # Voids 2 1 2 # Bowel Movements 0 0 0 Vital Signs Vital Signs Date Time Temp Pulse Resp B/P Pulse Ox O2 Delivery O2 Flow Rate FiO2 11/20/16 08:58 93 Nasal Cannula 2.00 11/20/16 08:00 97.5 110 18 120/81 94 11/20/16 04:00 97.8 100 18 96/54 92 11/20/16 00:00 98.4 107 20 95/53 91 11/19/16 20:00 110 11/19/16 20:00 98.3 114 18 98/50 91 11/19/16 19:45 Room Air 11/19/16 16:01 98.4 111 16 93/53 92 11/19/16 15:21 90 Nasal Cannula 2.00 11/19/16 12:01 98.1 107 16 100/56 90 CBC/BMP: 11/19/16 0808 11/19/16 0808 Lab Results Laboratory Tests Test 11/20/16 11/20/16 01:31 05:20 Troponin I LESS THAN 0.02 LESS THAN 0.02 NG/ML NG/ML Physical Exam General General Appearance: Well Developed, No Acute Distress, Comfortable Eyes Eye Exam: Pupils Equal, Pupils Reactive Ears & Nose Ears & Nose Exam: Nasal Mucosa [place] Throat Throat Exam: Oral Mucosa [place] & Moist Neck Neck Exam: Neck Supple, Trachea Midline Pulmonary Resp Exam: Rhonchi Resp Remarks exp. wheezes Gastrointestinal/Abdomen GI Exam: Soft, Non-Tender, Bowel Sounds Present, Non-Distended Musculoskeletal MS Exam: Joints Intact Integumentary Skin Exam: Warm, Dry Extremeties Extremities Exam: No Edema, Pedal Pulses Palpable Neurologic Neuro Exam: Alert, Awake, Speech Clear, Moving All Extremities, No Focal Deficits Psychiatric Psych Exam: Appropriate Responses VTE Prophylaxis VTE Prophylaxis Device: SCDs Assessment/Plan Problem List: (1) COPD exacerbation (2) Chest pain (3) CAD (coronary artery disease) (4) HTN (hypertension) (5) PVD (peripheral vascular disease) (6) Fibromyalgia (7) RECENT COMPRESSION FRACTURES Assessment/Plan continue with Duonebs IV steroids PO abx supplemental oxygen PRN add Tessalon remains SOB with minimal activity CP last night, with radiation hx CAD, stent Trop and EKG negative. Tachycardic, unable to use BB due to COPD Continue ASA consult cardiology for evaluation Back pain continue Flexeril and Tramadol Continue home meds Pt. not ready for dc, episode of CP, hx CAD need to have cardiac eval. Poss. dc tomorrow D/W RN D/W Dr. Alston D/W pt. This patient was seen by myself and Dr. Alston, this note is written on his behalf. Problem Qualifiers (1) Chest pain: (2) HTN (hypertension): Qualified Code: I10 - Essential hypertension Brandi Kong November 20, 2016 12:04
[2016-11-20] MEDS: AZITHROMYCIN 250 MG TAB PO SCH (15:55)
--- NOTE | 2016-11-20 16:38 | MB ---
cc: NAVARRO MATTHEW M.D. DATE OF CONSULTATION 11/20/2016 REASON FOR CONSULTATION Chest pain, history of coronary artery disease. HISTORY OF PRESENT ILLNESS The patient is a 71-year-old white female, followed in the office by Dr. Quinn Eli, with a history of COPD, hypertension, coronary artery disease, peripheral vascular disease who presented to the hospital with increasing dyspnea. She was admitted for COPD exacerbation. The patient notes her dyspnea has minimally improved. Yesterday she developed an episode of substernal / epigastric tightness slowly radiating to her left shoulder and then down her left arm. At the same time she felt bilateral jaw pain. The episode lasted at least 30 minutes and was not associated with diaphoresis, nausea or increased shortness of breath. A short time later the same discomfort recurred, this time lasting less than 30 minutes. At home in the last few months she may have had two other episodes of similar nature. The patient denies pleurisy, dizziness, syncope, near-syncope, palpitations, pedal edema, paroxysmal nocturnal dyspnea. She reports a nuclear stress test possibly 2 years ago which was negative for ischemia. PAST MEDICAL HISTORY 1. COPD. 2. Hypertension 3. Hyperlipidemia. 4. Coronary artery disease status post stent of the left circumflex 1999. 5. Gastroesophageal reflux disease. 6. Peripheral vascular disease status post right femoral-popliteal bypass 2000. She underwent stenting of the right common iliac by Dr. Sam Muniz 06/14/2014 at which time angiography showed total occlusion of the right femoral-popliteal bypass. PAST SURGICAL HISTORY 1. Septoplasty, sinus surgery 01/19/2008. 2. Partial hysterectomy. 3. Kyphoplasty of T12 10/25/2016. MEDICATIONS Her current cardiac medications: 1. Amlodipine 5 mg p.o. daily. 2. Aspirin 81 mg p.o. daily. 3. Lisinopril 20 mg p.o. daily. 4. Lopid 600 mg p.o. b.i.d. 5. Atorvastatin 40 mg p.o. q.h.s. 6. Pletal 100 mg p.o. b.i.d. 7. Heparin 5000 units subcutaneously q.12h ALLERGIES ADVAIR, ALBUTEROL, QUINOLONES, SEREVENT, SULFA. FAMILY HISTORY Noncontributory. SOCIAL HISTORY The patient quit smoking about 5 years ago. There is no history of alcohol abuse. REVIEW OF SYSTEMS As in the history of present illness otherwise negative or noncontributory. She also denies dyspepsia, melena, bright red blood per rectum, fevers, hemoptysis. PHYSICAL EXAMINATION VITAL SIGNS: Blood pressure 92/60 with a pulse of 92, respirations 18. GENERAL: In general she is a well-developed, well-nourished white female in no acute distress. HEENT: On HEENT examination jugular venous pressure is normal. Carotid pulses are 2+ bilaterally and without bruits. CHEST: Examination of the chest reveals diffuse expiratory wheezes and markedly diminished breath sounds throughout. CARDIOVASCULAR: On cardiac examination she has a regular rhythm and rate without S3-S4 or murmur. ABDOMEN: On abdominal examination she has a soft, nontender abdomen. Bowel sounds are present. There is no definite hepatosplenomegaly. EXTREMITIES: Examination of extremities reveals no clubbing, cyanosis or edema. Dorsalis pedis pulses are trace bilaterally. LABORATORY DATA Includes WBC 12.2, hemoglobin 12.7, platelets 392. Potassium 3.7, BUN 13, creatinine 0.80. Negative cardiac enzymes. IMAGING Chest x-ray shows no acute disease. EKG from 11/19/2016 shows sinus tachycardia, otherwise normal EKG. EKG from 11/20/2016 shows no significant change. IMPRESSION Overall atypical chest discomfort yesterday in this 71-year-old white female with a history of coronary artery disease status post percutaneous coronary intervention many years ago, history of COPD, hypertension, peripheral vascular disease. Despite fairly prolonged chest discomfort yesterday cardiac enzymes are negative for myocardial infarction. EKG shows no diagnostic ST-segment or T-wave changes. Clinical suspicion for pulmonary embolism is low. RECOMMENDATIONS 1. Check a Lexiscan nuclear stress test. 2. Will follow up as needed for any significant ischemia demonstrated on nuclear stress testing. MD CATHERINE Walker/JUVENTINO /2:27 PM /4:27 PM ANA
[2016-11-20] MEDS: ATORVASTATIN 40 MG TAB PO SCH (20:19)
[2016-11-21] VITALS (8 sets, daily range): BP systolic 92–110; BP diastolic 54–68; PULSE 86–114; RESP 16–18; TEMP 97.2–97.9; O2SAT 93–96
[2016-11-21] MEDS: methylPREDNISolone SOD SUCC 40 MG/1 ML VIAL IV PUSH SCH (02:00)
[2016-11-21] MEDS: RESP: IPRATROPIUM 0.5 MG/2.5 ML NEB NEB SCH ×3 (04:49→15:41)
[2016-11-21] MEDS: CYCLOBENZAPRINE HCL 10 MG TAB PO SCH ×2 (06:19→13:57)
[2016-11-21] MEDS: GEMFIBROZIL 600 MG TAB PO SCH ×2 (06:19→16:26)
[2016-11-21] MEDS: HEPARIN SODIUM - SQ 10,000 UNITS/ML VIAL SQ SCH ×2 (06:19→18:00)
[2016-11-21] MEDS: PANTOPRAZOLE SOD 20 MG DELAYED RELEASE TAB PO SCH (08:34)
[2016-11-21] MEDS: CYANOCOBALAMIN 1,000 MCG TAB PO SCH (08:34)
[2016-11-21] MEDS: CHOLECALCIFEROL (VIT D3) 1000 UNIT TAB PO SCH (08:35)
[2016-11-21] MEDS: VENLAFAXINE HCL XR 75 MG CAP PO SCH (08:35)
[2016-11-21] MEDS: GABAPENTIN 100 MG CAP PO SCH (08:35)
[2016-11-21] MEDS: ASPIRIN 81 MG CHEW TAB CHEW SCH (08:35)
[2016-11-21] MEDS: SODIUM CHLORIDE 0.9% FLUSH 10 ML FLUSH IV FLUSH SCH (08:36)
[2016-11-21] MEDS: CILOSTAZOL 100 MG TAB PO SCH (08:41)
[2016-11-21] MEDS: amLODIPine BESYLATE 5 MG TAB PO SCH (09:00)
[2016-11-21] MEDS ORDERED: REGADENOSON INJ 0.4 MG/5 ML SYR ONE (09:37)
--- NOTE | 2016-11-21 11:22 | RADRPT ---
EXAM DATE/TIME: 11/21/2016 09:01 [facility] COMPARISON: No previous studies available for comparison. INDICATIONS : Substernal chest pain with dyspnea radiating to the left shoulder, jaw and arm. Angina. DOSE: 25.8 mCi Tc99m Myoview at stress. 8.6 mCi Tc99m Myoview at rest. 0.4 mg Lexiscan STRESS SYMPTOMS: Short of breath. EJECTION FRACTION: > 70% MEDICAL HISTORY : Hypercholesterolemia. Chronic obstructive pulmonary disease. Gastroesophageal reflux disease. Hyperte nsion. Ex-smoker. SURGICAL HISTORY : Coronary artery stent. Hysterectomy. Appendectomy. ENCOUNTER: Initial ACUITY: 1 day PAIN SCALE: 5/10 LOCATION: Substernal chest TECHNIQUE: The patient underwent pharmacologic stress with infusion of prescribed dose. Continuous ECG tracing was monitored during stress. Gated SPECT imaging was performed after stress and conventional SPECT i maging was performed at rest. The examination was performed on a SPECT/CT scanner, both attenuation and non-corrected datasets were reviewed. FINDINGS: DISTRIBUTION: The maximum perfused segment at stress is in the anterolateral wall. PERFUSION STUDY: The pattern of perfusion at stress is within normal limits. GATED STUDY: There is intact wall motion and thickening without hypokinetic or dyskinetic segments. CONCLUSION: No reversible defects observed to suggest acute ischemia. RISK CATEGORY: Low Alvarado Canela Jr., MD on November 21, 2016 at 11:15 Board Certified Radiologist. This report was verified electronically.
[2016-11-21] MEDS ORDERED: PRED20 PO (12:03)
--- NOTE | 2016-11-21 12:04 | HHI.DCPOC ---
Discharge Care Plan Diagnosis: (1) COPD exacerbation (2) Chest pain Your Health Problems Are: Anxiety Chest Pain Cough Shortness of Breath Goals to Promote Your Health * To prevent worsening of your condition and complications * To maintain your health at the optimal level Directions to Meet Your Goals Take your medications as prescribed Follow your dietary instruction Follow activity as directed Keep your appointments as scheduled Take your immunizations and boosters as scheduled If your symptoms worsen call your PCP, if no PCP go to Urgent Care Center or Emergency Room Smoking is Dangerous to Your Health. Avoid second hand smoke Call the 24-hour hour crisis hotline for domestic abuse at Brandi Kong. [facility] November 21, 2016 12:04
[2016-11-21] MEDS ORDERED: LISI-515 PO (12:05)
--- NOTE | 2016-11-21 12:10 | HHI.PR ---
Subjective Subjective Remarks no cp sob and wheezing improved shaky, anxious "I just don't feel well", "my skin hurts" has been refusing IV steroids had STT, negative feels that she may be ready for dc later today wants something to eat Review of Systems Constitutional Constitutional Remarks 12 point ROS completed, negative except as noted above Vitals/Results Intake & Output 11/20/16 11/20/16 11/21/16 15:00 23:00 07:00 Intake Total 700 ml 600 ml 0 ml Balance 700 ml 600 ml 0 ml Intake Oral 700 ml 600 ml 0 ml # Voids 3 0 0 # Bowel Movements 0 0 0 Vital Signs Vital Signs Date Time Temp Pulse Resp B/P Pulse Ox O2 Delivery O2 Flow Rate FiO2 11/21/16 08:35 97.5 95 17 108/57 94 11/21/16 07:30 Room Air 11/21/16 04:50 96 21 11/21/16 04:00 97.3 86 16 92/55 95 11/21/16 00:00 97.2 94 18 94/54 94 11/20/16 21:11 93 21 11/20/16 20:00 98.0 110 20 104/53 93 11/20/16 20:00 104 11/20/16 19:30 Room Air 11/20/16 16:00 97.8 110 18 112/53 98 CBC/BMP: 11/19/16 0808 11/19/16 0808 Physical Exam General General Appearance: Well Developed, No Acute Distress, Comfortable Eyes Eye Exam: Pupils Equal, Pupils Reactive Ears & Nose Ears & Nose Exam: Nasal Mucosa [place] [employer] Throat Throat Exam: Oral Mucosa [employer] & Moist Neck Neck Exam: Neck Supple, Trachea Midline Pulmonary Resp Remarks exp. wheezes Gastrointestinal/Abdomen GI Exam: Soft, Non-Tender, Bowel Sounds Present, Non-Distended Musculoskeletal MS Exam: Joints Intact Integumentary Skin Exam: Warm, Dry Extremeties Extremities Exam: No Edema, Pedal Pulses Palpable Neurologic Neuro Exam: Alert, Awake, Oriented, Speech Clear, Moving All Extremities, No Focal Deficits Psychiatric Psych Exam: Appropriate Responses VTE Prophylaxis VTE Prophylaxis Device: SCDs Assessment/Plan Problem List: (1) COPD exacerbation (2) Chest pain (3) CAD (coronary artery disease) (4) HTN (hypertension) (5) PVD (peripheral vascular disease) (6) Fibromyalgia (7) RECENT COMPRESSION FRACTURES Assessment/Plan continue with Duonebs change to PO steroids, has been refusing IV PO abx supplemental oxygen PRN, on RA sats 94% continue Tessalon improved CP free no evidence of ACS appreciate card input STT today, negative continue ASA HR improved Unable to use BB due to COPD BP trending low 100s dec. Lisinopril to 10 mg po daily continue Norvasc Back pain continue Flexeril and Tramadol Continue home meds Overall pt. stable, discussed compliance with meds will re-evaluate this afternoon, poss. discharge f/u PCP D/W RN D/W Dr. Alston D/W pt. This patient was seen by myself and Dr. Alston, this note is written on his behalf. Problem Qualifiers (1) Chest pain: (2) HTN (hypertension): Qualified Code: I10 - Essential hypertension Brandi Kong November 21, 2016 12:10
[2016-11-21] MEDS ORDERED: ALPR.25 PO (15:36)
[2016-11-21] MEDS ORDERED: AZIT250T3 PO (15:36)
--- NOTE | 2016-11-21 15:42 | HHI.DS ---
Discharge Summary Admission Date November 18, 2016 at 16:51 Discharge Date: November 21, 2016 Admitting Diagnosis COPD exacerbation (1) COPD (chronic obstructive pulmonary disease) (2) Chest pain (3) CAD (coronary artery disease) (4) Fibromyalgia (5) PVD (peripheral vascular disease) (6) HTN (hypertension) (7) RECENT COMPRESSION FRACTURES (8) Mood disorder CBC/BMP: 11/19/16 0808 11/19/16 0808 Significant Findings Laboratory Tests Test 11/18/16 11/19/16 11/20/16 11/20/16 22:41 08:08 01:31 05:20 Troponin I LESS THAN 0.02 LESS THAN 0.02 LESS THAN 0.02 NG/ML NG/ML NG/ML (0.02-0.05) (0.02-0.05) (0.02-0.05) White Blood Count 12.2 TH/MM3 (4.0-11.0) Neutrophils (%) (Auto) 83.8 % (16.0-70.0) Neutrophils # (Auto) 10.2 TH/MM3 (1.8-7.7) Estimat Glomerular Filtration 71 ML/MIN (>89) Rate Random Glucose 166 MG/DL (74-106) Hospital Course This is a pleasant 71-year-old white female who states that she has not been out of bed, had body aches, possible low grade fever, no appetite and diarrhea. She stated that she has also been coughing and has had extreme exertional dyspnea today to the point that she cannot lie flat. The patient called her physician's office, Dr. Squires who advised her to come into the emergency room for further evaluation. The patient did complain of copious sputum production yesterday grayish-green in nature. She denied any seasonal allergies. Evaluated in the ED and found with: LABORATORY DATA Diagnostic data, WBC count 17.1, RBC 4.52, hemoglobin 13.8, hematocrit 39.9, platelet count 405. Neutrophil count auto percentage 71.6, lymphocyte 14.5, monocyte 12.6. PT INR is 1. Chemistry sodium 132, potassium 3.5, chloride 95, carbon dioxide 25.2, anion gap 12, BUN 11, creatinine 0.87, GFR 64, random glucose 91, calcium is 10, magnesium 1.9. Urine is yellow clear, pH is 5.5, specific gravity 1.030, protein is high with 30. Negative glucose. Ketones are 10 and high. Occult blood negative. Nitrites negative. Bilirubin negative. Leukocyte esterase negative. Culture is not indicated. IMAGING STUDIES Shows chest x-ray with no acute changes. Admitted for further evaluation for: (1) COPD exacerbation (2) Chest pain (3) CAD (coronary artery disease) (4) HTN (hypertension) (5) PVD (peripheral vascular disease) (6) Fibromyalgia (7) RECENT COMPRESSION FRACTURES During the course of hospitalization, the following took place: Pt. was admitted, put on oxygen, DuoNeb's IV steroids. Was continued on IV antibiotics, changed to by mouth Refuse steroid, discussed with patient need for compliance. Put on Tessalon for cough Respiratory symptoms improved, not febrile, WBC stable. Had an episode of chest pain, cardiac enzymes were done, negative Cardiology consulted, dressed as recommended. appreciate card input STT done, negative, no evidence of ACS continue ASA HR initially elevated, didn't improve. Unable to use BB due to COPD BP noted trending low 100s dec. Lisinopril to 10 mg po daily continue Norvasc Complain of Back pain, had recent compression fractures continue Flexeril and Tramadol Continued home meds Overall pt. stable, respiratory symptoms improved. Stable for discharge, patient went home. Instructed to follow-up with PCP. Pt Condition on Discharge: Stable Discharge Disposition: Discharge Home Discharge Instructions DIET: Follow Instructions for: Heart Healthy Diet Fluid Restrictions: none Activities you can perform: Weight Bearing as Ivet Follow up Referrals: PCP Follow-up New Medications: Alprazolam (Xanax) 0.25 Mg Tab 0.25 MG PO BID PRN ANXIETY #20 Ref 0 TAB Azithromycin (Azithromycin) 250 Mg Tab 250 MG PO DAILY@17 bronchitis #4 TAB Prednisone (Prednisone) 20 Mg Tab 20 MG PO BID 20 mg orally twice a day x 2 days, then decrease to 20 mg orally daily x 4 days, then decrease to 10 mg orally daily x 4 days, then discontinue. Broncospasm #10 Ref 0 TAB Changed Medications: Lisinopril (Lisinopril) 20 Mg Tab 10 MG PO DAILY #30 Ref 0 TAB (Changed from: 20 MG) Continued Medications: Amlodipine (Amlodipine) 5 Mg Tab 5 MG PO DAILY Blood Pressure Management #30 Ref 0 TAB Aspirin (Aspirin) 81 Mg Chew 81 MG CHEW DAILY Ref 0 TAB Atorvastatin (Lipitor) 40 Mg Tab 40 MG PO HS Cholesterol Management #30 Ref 0 TAB Calcium Ascorbate (Calcium Ascorbate) 500 Mg Tab 600 MG PO Calcium Supplement Ref 0 TAB Cholecalciferol (D3 Super Strength) 2,000 Unit Cap 2000 UNITS PO DAILY Nutritional Supplement #30 Ref 0 CAP Cilostazol (Cilostazol) 100 Mg Tab 100 MG PO BID INTERMITTENT CLAUDICATION Ref 0 TAB Cyanocobalamin (B-12) 1,000 Mcg Lozg 1000 MCG BUCCAL DAILY Nutritional Supplement #1 Ref 0 BOTTLE Cyclobenzaprine (Flexeril) 10 Mg Tab 5 MG PO Q8HR BACK SPASMS #21 Ref 0 TAB Gabapentin (Gabapentin) 100 Mg Cap 100 MG PO DAILY #60 Ref 0 CAP Gemfibrozil (Gemfibrozil) 600 Mg Tab 600 MG PO BIDAC Take 30 minutes prior to breakfast and dinner. #60 Ref 0 TAB Omeprazole (Omeprazole) 20 Mg Tab 20 MG PO DAILY #30 Ref 0 TAB Tramadol (Ultram) 50 Mg Tab 50 MG PO Q6H PRN PAIN SCALE 6 TO 10 #30 TAB Venlafaxine (Effexor) 75 Mg Tab 150 MG PO DAILY #30 Ref 0 TAB Discontinued Medications: Prednisone (Prednisone) 50 Mg Tab 50 MG PO DAILY 50 MG ORALLY DAILY X 2, THEN 40 MG ORALLY DAILY X 2, THEN 20 MG ORALLY X 2 DAYS, THEN 10 MG ORALLY X 2 DAYS. Broncospasm #10 TAB Brandi Kong November 21, 2016 15:42 BP trending low 100s dec. Lisinopril to 10 mg po daily continue Norvasc Back pain continue Flexeril and Tramadol Continue home meds Overall pt. stable, discussed compliance with meds will re-evaluate this afternoon, poss. discharge f/u PCP D/W RN D/W Dr. Alston D/W pt. This patient was seen by myself and Dr. Alston, this note is written on his behalf. Pt Condition on Discharge: Stable Discharge Disposition: Discharge Home Discharge Instructions DIET: Follow Instructions for: Heart Healthy Diet Fluid Restrictions: none Activities you can perform: Weight Bearing as Ivet Follow up Referrals: PCP Follow-up New Medications: Alprazolam (Xanax) 0.25 Mg Tab 0.25 MG PO BID PRN ANXIETY #20 Ref 0 TAB Azithromycin (Azithromycin) 250 Mg Tab 250 MG PO DAILY@17 bronchitis #4 TAB Prednisone (Prednisone) 20 Mg Tab 20 MG PO BID 20 mg orally twice a day x 2 days, then decrease to 20 mg orally daily x 4 days, then decrease to 10 mg orally daily x 4 days, then discontinue. Broncospasm #10 Ref 0 TAB Changed Medications: Lisinopril (Lisinopril) 20 Mg Tab 10 MG PO DAILY #30 Ref 0 TAB (Changed from: 20 MG) Continued Medications: Amlodipine (Amlodipine) 5 Mg Tab 5 MG PO DAILY Blood Pressure Management #30 Ref 0 TAB Aspirin (Aspirin) 81 Mg Chew 81 MG CHEW DAILY Ref 0 TAB Atorvastatin (Lipitor) 40 Mg Tab 40 MG PO HS Cholesterol Management #30 Ref 0 TAB Calcium Ascorbate (Calcium Ascorbate) 500 Mg Tab 600 MG PO Calcium Supplement Ref 0 TAB Cholecalciferol (D3 Super Strength) 2,000 Unit Cap 2000 UNITS PO DAILY Nutritional Supplement #30 Ref 0 CAP Cilostazol (Cilostazol) 100 Mg Tab 100 MG PO BID INTERMITTENT CLAUDICATION Ref 0 TAB Cyanocobalamin (B-12) 1,000 Mcg Lozg 1000 MCG BUCCAL DAILY Nutritional Supplement #1 Ref 0 BOTTLE Cyclobenzaprine (Flexeril) 10 Mg Tab 5 MG PO Q8HR BACK SPASMS #21 Ref 0 TAB Gabapentin (Gabapentin) 100 Mg Cap 100 MG PO DAILY #60 Ref 0 CAP Gemfibrozil (Gemfibrozil) 600 Mg Tab 600 MG PO BIDAC Take 30 minutes prior to breakfast and dinner. #60 Ref 0 TAB Omeprazole (Omeprazole) 20 Mg Tab 20 MG PO DAILY #30 Ref 0 TAB Tramadol (Ultram) 50 Mg Tab 50 MG PO Q6H PRN PAIN SCALE 6 TO 10 #30 TAB Venlafaxine (Effexor) 75 Mg Tab 150 MG PO DAILY #30 Ref 0 TAB Discontinued Medications: Prednisone (Prednisone) 50 Mg Tab 50 MG PO DAILY 50 MG ORALLY DAILY X 2, THEN 40 MG ORALLY DAILY X 2, THEN 20 MG ORALLY X 2 DAYS, THEN 10 MG ORALLY X 2 DAYS. Broncospasm #10 TAB Brandi Kong [facility] November 21, 2016 15:42
[2016-11-21] MEDS: AZITHROMYCIN 250 MG TAB PO SCH (16:26)
[2016-11-21] MEDS ORDERED: predniSONE 20 MG TAB PO SCH (21:00)
[2016-11-22] MEDS ORDERED: LISINOPRIL 10 MG TAB PO SCH (09:00)
== END 2016-11-21 18:42 | disposition home or self-care (01) ==
LOC: NEPE 12:53 → NEDA 16:51 → N04B 19:08
PROVIDERS: ADMIT Specialist; ATTEND Specialist
DX: J44.1 Chronic obstructive pulmonary disease with (acute) exacerbation (principal); R07.89 Other chest pain; E87.1 Hypo-osmolality and hyponatremia; D72.829 Elevated white blood cell count, unspecified; E78.5 Hyperlipidemia, unspecified; I73.9 Peripheral vascular disease, unspecified; F39 Unspecified mood [affective] disorder; E78.00 Pure hypercholesterolemia, unspecified; I25.10 Atherosclerotic heart disease of native coronary artery without angina pectoris; K21.9 Gastro-esophageal reflux disease without esophagitis; I10 Essential (primary) hypertension; G89.29 Other chronic pain; M79.7 Fibromyalgia; Z95.5 Presence of coronary angioplasty implant and graft; Z87.891 Personal history of nicotine dependence; Z88.2 Allergy status to sulfonamides; Z88.8 Allergy status to other drugs, medicaments and biological substances; Z79.82 Long term (current) use of aspirin
CPT/HCPCS: 71010; 78452; 80048; 81001; 82550; 83605; 83735; 84484; 85025; 85610; 85730; 87040; 93005; 93017; 94640; 94664; 96374; 99284; A9502; G0378; J0456; J0696; J1644; J2785; J2930; J7030; J7050; J7644

== ENCOUNTER 2017-10-26 23:43 | Observation (INO) | payer MEDICARE, OTHER ==
[~2017-10-26] VITALS: Ht 157.5 cm; Wt 64.5 kg
[~2017-10-26 23:43] MED LIST changes: +ALPR.25 PO; +ASPI-516 CHEW; -ASPI81CH CHEW; +AZIT250T3 PO; -CHOL20005 PO; +CYCL10TA PO; -CYCL1TAB29 PO; +D200CAP PO; -OMEP20TA PO; +OMEP20TA93 PO; +PRED20 PO; -PRED50 PO; +TRAM50 PO; -ULTR50TA5 PO
[2017-10-26 23:50] VITALS: BP 143/87; PULSE 72; RESP 22; TEMP 97.7; O2SAT 96
[2017-10-27] VITALS (7 sets, daily range): BP systolic 90–148; BP diastolic 56–87; PULSE 60–87; RESP 18–20; TEMP 97.4–98; O2SAT 92–97
[2017-10-27] MEDS ORDERED: SODIUM CHLORIDE 0.9% FLUSH 10 ML FLUSH IVF PRN (00:15)
[2017-10-27] MEDS ORDERED: RESP: ALBUTEROL 2.5 MG/IPRATROPIUM 0.5 MG NEB (SCH) NEB ONE (00:30)
[2017-10-27] MEDS ORDERED: methylPREDNISolone SOD SUCC 125 MG/2 ML VIAL IV PUSH ONE (00:30)
--- NOTE | 2017-10-27 00:30 | RADRPT ---
EXAM DATE/TIME: 10/27/2017 00:10 [place] COMPARISON: CHEST SINGLE AP, November 18, 2016, 15:24. INDICATIONS : Shortness of breath and chest pain. MEDICAL HISTORY : Chronic obstructive pulmonary disease. Hypercholesterolemia. Hypertension. SURGICAL HISTORY : Heart cath insertion stent, Cardiac cath, Coronary stent. ENCOUNTER: Initial ACUITY: 3 days PAIN SCORE: 5/10 LOCATION: Bilateral chest FINDINGS: A single view of the chest demonstrates minimal density left lower lobe. Right lung clear. Heart norm al size. The cardiomediastinal contours are unremarkable. Osseous structures are intact. CONCLUSION: Minimal density left lower lobe could be atelectasis or minimal infiltrate. Myke Scott MD on October 27, 2017 at 0:27 Board Certified Radiologist. This report was verified electronically.
--- NOTE | 2017-10-27 00:39 | PD ---
HPI Chief Complaint: Respiratory Symptoms Time Seen by Provider: 23:52 Travel History International Travel<30 days: No Contact w/Intl Traveler<30days: No Traveled to known affect area: No History of Present Illness HPI The patient is a 72 year old female who presents to the [facility] emergency department with a history of shortness of breath on exertion that worsened yesterday. The patient reports that she does have a history of COPD. The patient reports that today the shortness of breath became worse in spite of using her nebulizer machine in the her noon. She denies having any worsening cough or congestion. She reports that she quit smoking 5 years ago. She reports recently seeing her primary care physician and being referred to a local spreader box operator related to not having a palpable pulse in her right foot. The patient reports that she has a history of having a stent placed in the left leg. She denies having any pain in her right foot. On review of systems, she denies having any recent fevers,neck pain, abdominal pain, vomiting, diarrhea, urinary symptoms, or neurologic symptoms. She reports having chest tightness today with trying to take a deep breath. She denies any prior history of myocardial infarction, however she did have a cardiac catheterization and had a stent placed in her circumflex. COUNT INCLUDES THE [facility] Past Medical History Narrative Medical The patient's past medical history is significant for coronary artery disease status post circumflex stent placement, history of hyperlipidemia, COPD, acid reflux, hypertension, chronic pain related to fibromyalgia Anxiety: Yes Depression: Yes Cancer: No Cardiac Catheterization: Yes Cardiovascular Problems: Yes High Cholesterol: Yes Congestive Heart Failure: No COPD: Yes Coronary Artery Disease: Yes (stint) Diabetes: No Diminished Hearing: No Diverticulitis: No Endocrine: No Gastrointestinal Disorders: Yes (GERD) GERD: Yes Genitourinary: Yes (RECENT UTI) Headaches: Yes Hepatitis: No Hiatal Hernia: No Hypertension: Yes Immune Disorder: No Medical other: Yes (FIBROMYALGIA) Musculoskeletal: Yes (NECK AND BACK PAIN ; FIBROMYALGIA) Neurologic: Yes Psychiatric: Yes Respiratory: Yes (COPD) Immunizations Current: Yes Sleep Apnea: No Thyroid Disease: No Menopausal: Yes Past Surgical History Narrative Surgical The patient's past surgical history is significant for an appendectomy, cardiac catheterization with stent placement, right lower extremity femoropopliteal bypass, bilateral salpingo-oophorectomy, hysterectomy, sinus surgery. Abdominal Surgery: Yes (AGE 11 APPENDECTOMY) Body Medical Devices: CARDIAC STENT Cardiac Surgery: Yes (HEART CATH INSERTION STENT; RT LOWER EXTREMITY FEMOROPOPLITEAL BYPASS) Coronary Stent: Yes (X1 CIRC 1999) Gynecologic Surgery: Yes (ISRA SALPINGO-OOPHORECTOMY) Hysterectomy: Yes (PARTIAL) Oral Surgery: Yes (SINUS SX) Other Surgery: Yes (fem-pop right 2001) Social History Alcohol Use: No (rare) Tobacco Use: No (1/2 PPD x 48+ years) Substance Use: No Allergies-Medications (Allergen,Severity, Reaction): Coded Allergies: Sulfa (Sulfonamide Antibiotics) (Unverified Allergy, Severe, HIVES, 10/27/17 ) HIVES; THROAT SWELLING; SEVERE REACTION albuterol (Unverified Allergy, Severe, SHAKES & HIGH BP, 10/27/17) SEVERE REACTION ciprofloxacin (Unverified Allergy, Severe, 10/27/17) SHAKES ALL OVER; ELEVATED BLOOD PRESSURE fluticasone (Unverified Allergy, Severe, 10/27/17) SHAKES ALL OVER; ELEVATES BLOOD PRESSURE; SEVERE REACTION fluticasone furoate (Unverified Allergy, Severe, 10/27/17) SHAKES ALL OVER; ELEVATES BLOOD PRESSURE; SEVERE REACTION salmeterol (Unverified Allergy, Severe, 10/27/17) SHAKES ALL OVER; ELEVATES BLOOD PRESSURE; SEVERE REACTION Reported Meds & Prescriptions Reported Meds & Active Scripts Active Azithromycin 250 Mg Tab 500 Mg PO DAILY Reported Advair Diskus Inh (Fluticasone-Salmeterol Inh) 250-50 Mcg/Blist Aer 1 Puff INH BID Rinse mouth after use. Airduo Respiclick Inh (Fluticasone-Salmeterol Inh) 232-14 Mcg Inh 1 Puff INH BID Acetaminophen Extra Strength Liq (Acetaminophen) 500 Mg/15 Ml Soln 500 Mg PO Q4- 6H PRN Nitroglycerin SL (Nitroglycerin) 0.4 Mg Subl 0.4 Mg SL DIRECTED PRN ONE TABLET UNDER THE TONGUE NEEDED FOR CHEST PAIN, MAY REPEAT EVERY FIVE MINUTES FOR A TOTAL OF 3 DOSES OR CALL 911 IF NO RELIEF Effexor (Venlafaxine HCl) 75 Mg Tab 150 Mg PO DAILY Omeprazole 20 Mg Tab 20 Mg PO DAILY Aspirin 81 Mg Chew 81 Mg CHEW DAILY Review of Systems Except as stated in HPI: all other systems reviewed are Neg General / Constitutional: No: Fever Eyes: No: Visual changes HENT: No: Headaches Cardiovascular: Positive: Chest Pain or Discomfort, Dyspnea on exertion Respiratory: Positive: Shortness of Breath Gastrointestinal: No: Abdominal Pain Genitourinary: No: Dysuria Musculoskeletal: No: Pain Skin: No Rash Neurologic: No: Weakness, Focal Abnormalities, Change in Mentation, Slurred Speech, Sensory Disturbance Psychiatric: No: Depression Endocrine: No: Polydipsia Hematologic/Lymphatic: No: Easy Bruising Physical Exam Narrative General: The patient is a well-developed well-nourished female in no acute distress. Head and Neck exam: Head is normocephalic atraumatic. Eyes: EOMI, pupils are equal round and reactive to light. Nose: Midline septum with pink mucous membranes Mouth: Dentition unremarkable. Moist mucus membranes. Posterior oropharynx is not erythematous. No tonsillar hypertrophy. Uvula midline. Airway patent. Neck: No palpable lymphadenopathy. No nuchal rigidity. No thyromegaly. Cardiovascular: Regular rate and rhythm without murmurs, gallops, or rubs. Lungs: Soft expiratory wheezes audible bilateral lung walker, no rhonchi, no crackles. The patient has some accessory muscle use noted. No tripoding. No paroxysmal abdominal breathing. Abdomen: Soft, without tenderness to palpation in all 4 quadrants of the abdomen. No guarding, rebound, or rigidity. Normal bowel sounds are audible. No tenderness on palpation of McBurney's point. Negative Salmeron sign. Extremities: No clubbing, cyanosis, or edema. 2+ pulses in bilateral upper extremities. The patient has difficult to palpate pulses in bilateral lower extremities, however they are able to be dopplered bilaterally. The patient has less than 3 second capillary refill of her digits. Equal warmth in her feet. Back: No spinous process tenderness to palpation. No costovertebral angle tenderness to palpation. Neurologic Exam: Grossly nonfocal. Skin Exam: No rash noted. Intact skin that is warm and dry. Data Data Last Documented VS Vital Signs Date Time Temp Pulse Resp B/P (MAP) Pulse Ox O2 Delivery O2 Flow Rate FiO2 10/27/17 00:31 20 97 Room Air 10/26/17 23:54 70 10/26/17 23:50 97.7 143/87 (105) Orders Orders Complete Blood Count With Diff (10/27/17 00:02) Comprehensive Metabolic Panel (10/27/17 00:02) B-Type Natriuretic Peptide (10/27/17 00:02) Act Partial Throm Time (Ptt) (10/27/17 00:02) Prothrombin Time / Inr (Pt) (10/27/17 00:02) Magnesium (Mg) (10/27/17 00:02) Ckmb (Isoenzyme) Profile (10/27/17 00:02) Troponin I (10/27/17 00:02) Iv Access Insert/Monitor (10/27/17 00:02) Electrocardiogram (10/27/17 00:02) Ecg Monitoring (10/27/17 00:02) Oximetry (10/27/17 00:02) Oxygen Administration (10/27/17 00:02) Chest, Single Ap (10/27/17 00:02) Sodium Chloride 0.9% Flush (Ns Flush) (10/27/17 00:15) Albuterol-Ipratropium Neb (Duoneb Neb) (10/27/17 00:30) Methylprednisolone So Succ Inj (Solumedr (10/27/17 00:30) Ipratropium Neb (Atrovent Neb) (10/27/17 00:45) Blood Culture (10/27/17 01:22) Ceftriaxone Inj (Rocephin Inj) (10/27/17 01:30) Azithromycin Inj (Zithromax Inj) (10/27/17 01:30) Admit Order (Ed Use Only) (10/27/17 01:55) Evs Manager / Telemetry WILFRID.Q8H (10/27/17 01:55) Diet Heart Healthy (10/27/17 Breakfast) Activity Oob With Assistance (10/27/17 01:55) Notify Dr: Other (10/27/17 01:55) Ipratropium Neb (Atrovent Neb) (10/27/17 04:00) Methylprednisolone So Succ Inj (Solumedr (10/27/17 09:00) Aspirin Chew (Aspirin Chew) (10/27/17 09:00) Ckmb (Isoenzyme) Profile (10/27/17 06:00) Ckmb (Isoenzyme) Profile (10/27/17 12:00) Troponin I (10/27/17 06:00) Troponin I (10/27/17 12:00) Electrocardiogram (10/27/17 06:00) Electrocardiogram (10/27/17 12:00) Acetaminophen (Tylenol) (10/27/17 02:00) Labs Laboratory Tests Test 10/27/17 00:15 White Blood Count 12.9 TH/MM3 Red Blood Count 4.51 MIL/MM3 Hemoglobin 14.4 GM/DL Hematocrit 42.4 % Mean Corpuscular Volume 93.9 FL Mean Corpuscular Hemoglobin 31.9 PG Mean Corpuscular Hemoglobin Concent 33.9 % Red Cell Distribution Width 12.9 % Platelet Count 323 TH/MM3 Mean Platelet Volume 8.2 FL Neutrophils (%) (Auto) 42.3 % Lymphocytes (%) (Auto) 41.3 % Monocytes (%) (Auto) 9.1 % Eosinophils (%) (Auto) 6.2 % Basophils (%) (Auto) 1.1 % Neutrophils # (Auto) 5.5 TH/MM3 Lymphocytes # (Auto) 5.3 TH/MM3 Monocytes # (Auto) 1.2 TH/MM3 Eosinophils # (Auto) 0.8 TH/MM3 Basophils # (Auto) 0.1 TH/MM3 CBC Comment AUTO DIFF Differential Comment AUTO DIFF CONFIRMED Platelet Estimate NORMAL Platelet Morphology Comment NORMAL Red Cell Morphology Comment NORMAL Prothrombin Time 10.4 SEC Prothromb Time International Ratio 1.0 RATIO Activated Partial Thromboplast Time 26.0 SEC Blood Urea Nitrogen 18 MG/DL Creatinine 0.95 MG/DL Random Glucose 84 MG/DL Total Protein 7.7 GM/DL Albumin 3.8 GM/DL Calcium Level 9.0 MG/DL Magnesium Level 2.1 MG/DL Alkaline Phosphatase 88 U/L Aspartate Amino Transf (AST/SGOT) 26 U/L Alanine Aminotransferase (ALT/SGPT) 26 U/L Total Bilirubin 0.3 MG/DL Sodium Level 141 MEQ/L Potassium Level 4.1 MEQ/L Chloride Level 103 MEQ/L Carbon Dioxide Level 28.4 MEQ/L Anion Gap 10 MEQ/L Estimat Glomerular Filtration Rate 58 ML/MIN Total Creatine Kinase 78 U/L Troponin I LESS THAN 0.02 NG/ML B-Type Natriuretic Peptide 72 PG/ML MDM Medical Decision Making Medical Screen Exam Complete: Yes Emergency Medical Condition: Yes Medical Record Reviewed: Yes Interpretation(s) Last Impressions Chest X-Ray 10/27/17 0002 Signed Impressions: Service Date/Time: Friday, October 27, 2017 00:10 - CONCLUSION: Minimal density left lower lobe could be atelectasis or minimal infiltrate. Myke Scott MD Differential Diagnosis COPD exacerbation, versus pneumothorax, versus pneumonia, versus new onset congestive heart failure, versus acute coronary syndrome Narrative Course During the course of the patient's emergency department visit, the patient's history, examination, and differential diagnosis were reviewed with the patient. The patient was placed on a cardiac exercise physiologist with oximetry and frequent blood pressure monitoring. The patient had IV access obtained and blood work sent for analysis. The patient had a EKG done on arrival that shows a sinus rhythm heart rate is 70, QRS duration 85 ms, QTC [address] segment elevation. The patient's studies were reviewed and remarkable for A white count of 12.9, hemoglobin 14.4, platelets 323 with 9.1 monocytes. CMP is unremarkable, cardiac enzymes within normal limits, BNP is 72. PT 10.4, PTT 26. Chest x-ray showed a left lower lobe infiltrate. Blood cultures 2 were added to the patient's laboratory laboratory studies. The patient was given Rocephin 1 g IM , Zithromax 500 IV. The patient reported initially that she had severe reaction at her doctor's office to albuterol administration and was reticent to have this administered. Initially she was just given Atrovent nebulized, however on reexamination she continued to have wheezing and was agreeable with the plan to have albuterol administered. She did tolerate this well. The patient will be admitted for a COPD exacerbation with left lower lobe infiltrate. The patient's results were discussed with the patient, including the plan of care. I explained that further testing and/ or monitoring is indicated based on the patient's history, examination, and/ or laboratory findings. Therefore, I recommended admission for additional evaluation. The patient expressed understanding and was agreeable with this plan. The patient was admitted to the hospital in stable condition and [facility] Physician Communication Physician Communication The patient's case including history, pertinent physical examination findings, and laboratory studies were discussed with Dr. Quinn izaguirre. It was agreed that [facility] Diagnosis Primary Impression: Pneumonia Qualified Codes: J18.1 - Lobar pneumonia, unspecified organism Additional Impression: COPD exacerbation Admitting Information Admitting Physician Requests: Observation Scripts Azithromycin (Azithromycin) 250 Mg Tab 500 MG PO DAILY for copd exacerbation, #5 TAB Prov: Ryanne Acosta 10/27/17 Arleen Leigh MD Oct 27, 2017 00:39
[2017-10-27 00:40] LABS: AUTOMATED NEUTROPHIL # 5.5 TH/MM3 (1.8-7.7); BASOPHIL # 0.1 TH/MM3 (0-0.2); BASOPHIL % 1.1 % (0.0-2.0); EOSINOPHIL # 0.8 TH/MM3 (0-0.4); EOSINOPHIL % 6.2 % (0.0-4.0); HEMATOCRIT 42.4 % (35.0-46.0); HEMOGLOBIN 14.4 GM/DL (11.6-15.3); LYMPH % 41.3 % (9.0-44.0); LYMPHOCYTE # 5.3 TH/MM3 (1.0-4.8); MEAN CELL VOLUME 93.9 FL (80.0-100.0); MEAN CORPUSCULAR HEMOGLOBIN 31.9 PG (27.0-34.0); MEAN CORPUSCULAR HGB CONC 33.9 % (32.0-36.0); MEAN PLATELET VOLUME 8.2 FL (7.0-11.0); MONO % 9.1 % (0.0-8.0); MONOCYTE # 1.2 TH/MM3 (0-0.9); NEUT % 42.3 % (16.0-70.0); PLATELET COUNT 323 TH/MM3 (150-450); RED BLOOD COUNT 4.51 MIL/MM3 (4.00-5.30); RED CELL DISTRIBUTION WIDTH 12.9 % (11.6-17.2); WHITE BLOOD COUNT 12.9 TH/MM3 (4.0-11.0)
[2017-10-27] MEDS ORDERED: RESP: IPRATROPIUM 0.5 MG/2.5 ML NEB NEB ONE (00:45)
[2017-10-27] MEDS ORDERED: NITR1SUB3 SL (00:56)
[2017-10-27] MEDS ORDERED: ACET500L PO (00:56)
[2017-10-27] MEDS ORDERED: METO1TAB9 PO (00:56)
[2017-10-27 00:58] LABS: PROTHROMBIN TIME - PATIENT 10.4 SEC (9.8-11.6)
[2017-10-27 01:04] LABS: ALBUMIN 3.8 GM/DL (3.4-5.0); ALKALINE PHOSPHATASE 88 U/L (45-117); ALT (GPT) 26 U/L (10-53); AST (GOT) 26 U/L (15-37); BICARBONATE 28.4 MEQ/L (21.0-32.0); BLOOD UREA NITROGEN 18 MG/DL (7-18); CHLORIDE 103 MEQ/L (98-107); CREATININE 0.95 MG/DL (0.50-1.00); GLOMERULAR FILTRATION RATE 58 ML/MIN (>89); GLUCOSE,RANDOM 84 MG/DL (74-106); MAGNESIUM 2.1 MG/DL (1.5-2.5); SODIUM (NA) 141 MEQ/L (136-145); TOTAL BILIRUBIN ADULT 0.3 MG/DL (0.2-1.0); TOTAL PROTEIN 7.7 GM/DL (6.4-8.2); TROPONIN I LESS THAN 0.02 NG/ML (0.02-0.05)
[2017-10-27] MEDS ORDERED: AZITHROMYCIN INJ 500 MG in SODIUM CHLOR 0.9% 250 ML INJ 250 ML IV ONE (01:30)
[2017-10-27] MEDS ORDERED: cefTRIAXone INJ 1,000 MG in SODIUM CHLORIDE 0.9% INJ 100 ML IV ONE (01:30)
[2017-10-27] MEDS ORDERED: ACETAMINOPHEN 500 MG CPLT PO PRN (02:00)
[2017-10-27] MEDS ORDERED: RESP: ALBUTEROL 1.25 MG/3 ML NEB (SCH) NEB ONE (02:30)
[2017-10-27] MEDS: RESP: IPRATROPIUM 0.5 MG/2.5 ML NEB NEB SCH ×3 (02:46→16:37)
[2017-10-27 05:32] LABS: TROPONIN I LESS THAN 0.02 NG/ML (0.02-0.05)
[2017-10-27] MEDS ORDERED: FLUT1AER8 INH (07:56)
--- NOTE | 2017-10-27 08:07 | HHI.HP ---
HPI Service [facility] Hospitalists Primary Care Physician Katy Alcala MD Admission Diagnosis COPD exacerbation Chief Complaint: SOB Travel History International Travel<30 Days: No Contact w/Intl Traveler <30 Da: No Traveled to Known Affected Are: No History of Present Illness Ms. Stephen is a pleasant 72 y/o WF with COPD, HTN, Hyperlipidemia, CAD and Hx of PVD. She presented to the ED at [facility] [place] on 10/26/17 with complaints of worsening SOB. She states that over the last week or so she has had progressively worsening SOB with ambulation. Then yesterday she had increased SOB at rest and wheezing. She tried using her nebulizer treatment with ipratropium yesterday afternoon but this did not help and this prompted her evaluation in the ED. In the ED the pt was given IV Patricia-Medrol 125mg, Duoneb treatment. Labs revealed an slightly elevated WBC count of 12.9. CXR noted minimal density left lower lobe could be atelectasis or minimal infiltrate. Pt was given IV Azithromycin and Rocephin. Did has not required supplemental O2. She states that she does feel less SOB since admission. Pt uses Advair BID at home. She was recently prescribed AirDuo Respimat which she has not started yet. She denies any cough, congestion, sore throat, fevers, chills, chest pain or palpitations. She follows with Dr. Alcala who has recently referred her to Pulmonology but pt has not established with anyone yet. Review of Systems Constitutional: DENIES: Fever, Chills Eyes: DENIES: Vision loss Ears, nose, mouth, throat: DENIES: Hearing loss, Throat pain, Running Nose, Sinus Pain Respiratory: COMPLAINS OF: Wheezing, Shortness of breath, DENIES: Cough Cardiovascular: COMPLAINS OF: Dyspnea on Exertion, DENIES: Chest pain, Palpitations Gastrointestinal: DENIES: Abdominal pain, Diarrhea, Nausea, Reflux, Vomiting Genitourinary: DENIES: Urgency, Dysuria Musculoskeletal: DENIES: Back pain, Neck pain Integumentary: DENIES: Rash Neurologic: DENIES: Headache Psychiatric: DENIES: Confusion Past Family Social History Past Medical History Anxiety/Depression CAD PVD HTN Hyperlipidemia COPD Femoral artery aneurysm, right Chronic pain Fibromyalgia Vitamin D Deficiency Past Surgical History Appendectomy Fem-Pop bypass, right leg Bilateral salpingo-oophorectomy Partial hysterectomy Bilateral ethmoidectomy for deviated septum and nasal obstruction Bilateral carpal tunnel release Partial colectomy PTCA with stent in the circumflex [employer] of right common iliac artery Tonsillectomy with adenoidectomy Reported Medications -Acetaminophen Extra Strength Liq 500 Mg PO Q4-6H PRN Nitroglycerin SL 0.4 Mg SL DIRECTED PRN ONE TABLET UNDER THE TONGUE NEEDED FOR CHEST PAIN, MAY REPEAT EVERY FIVE MINUTES FOR A TOTAL OF 3 DOSES OR CALL 911 IF NO RELIEF -Metoprolol Succinate 50 Mg PO DAILY -Effexor 150 Mg PO DAILY -Omeprazole 20 Mg PO DAILY -Aspirin 81 Mg CHEW DAILY -Amlodipine 5 Mg PO DAILY -AirDuo RespiClick 232/14Mcg INHALE 1 PUFF BID Allergies: Coded Allergies: Sulfa (Sulfonamide Antibiotics) (Unverified Allergy, Severe, HIVES, 10/27/17 ) HIVES; THROAT SWELLING; SEVERE REACTION albuterol (Unverified Allergy, Severe, SHAKES & HIGH BP, 10/27/17) SEVERE REACTION ciprofloxacin (Unverified Allergy, Severe, 10/27/17) SHAKES ALL OVER; ELEVATED BLOOD PRESSURE fluticasone (Unverified Allergy, Severe, 10/27/17) SHAKES ALL OVER; ELEVATES BLOOD PRESSURE; SEVERE REACTION fluticasone furoate (Unverified Allergy, Severe, 10/27/17) SHAKES ALL OVER; ELEVATES BLOOD PRESSURE; SEVERE REACTION salmeterol (Unverified Allergy, Severe, 10/27/17) SHAKES ALL OVER; ELEVATES BLOOD PRESSURE; SEVERE REACTION Family History Noncontributory Social History Hx of tobacco use, smoked for ~50 years, quit in 2011 Rare alcohol use Physical Exam Vital Signs Vital Signs Date Time Temp Pulse Resp B/P (MAP) Pulse Ox O2 Delivery O2 Flow Rate FiO2 10/27/17 07:39 97.4 66 18 90/56 (67) 92 10/27/17 04:02 98.0 62 18 100/57 (71) 94 10/27/17 03:51 10/27/17 02:41 60 20 148/87 (107) 95 Room Air 10/27/17 02:40 96 10/27/17 00:31 20 97 Room Air 10/27/17 00:31 97 Room Air 10/26/17 23:54 70 20 97 Room Air 10/26/17 23:50 97.7 72 22 143/87 (105) 96 Physical Exam GENERAL: This is a well-nourished, well-developed patient, in no apparent distress. SKIN: No rashes, ecchymoses or lesions. Cool and dry. HEENT: Atraumatic. Normocephalic. No temporal or scalp tenderness. No scleral icterus. Airway patent. NECK: Trachea midline, supple, nontender. CARDIO: Regular. RESP: Faint wheeze bilaterally. No rales, or rhonchi. ABD: +BS, soft, non-tender, nondistended. EXT: Extremities without clubbing, cyanosis, or edema. NEURO: Awake and alert. Motor and sensory grossly within normal limits. Five out of 5 muscle strength in all muscle groups. Normal speech. Laboratory Laboratory Tests Test 10/27/17 00:15 10/27/17 04:25 White Blood Count 12.9 Red Blood Count 4.51 Hemoglobin 14.4 Hematocrit 42.4 Mean Corpuscular Volume 93.9 Mean Corpuscular Hemoglobin 31.9 Mean Corpuscular Hemoglobin Concent 33.9 Red Cell Distribution Width 12.9 Platelet Count 323 Mean Platelet Volume 8.2 Neutrophils (%) (Auto) 42.3 Lymphocytes (%) (Auto) 41.3 Monocytes (%) (Auto) 9.1 Eosinophils (%) (Auto) 6.2 Basophils (%) (Auto) 1.1 Neutrophils # (Auto) 5.5 Lymphocytes # (Auto) 5.3 Monocytes # (Auto) 1.2 Eosinophils # (Auto) 0.8 Basophils # (Auto) 0.1 CBC Comment AUTO DIFF Differential Comment AUTO DIFF CONFIRMED Platelet Estimate NORMAL Platelet Morphology Comment NORMAL Red Cell Morphology Comment NORMAL Prothrombin Time 10.4 Prothromb Time International Ratio 1.0 Activated Partial Thromboplast Time 26.0 Blood Urea Nitrogen 18 Creatinine 0.95 Random Glucose 84 Total Protein 7.7 Albumin 3.8 Calcium Level 9.0 Magnesium Level 2.1 Alkaline Phosphatase 88 Aspartate Amino Transf (AST/SGOT) 26 Alanine Aminotransferase (ALT/SGPT) 26 Total Bilirubin 0.3 Sodium Level 141 Potassium Level 4.1 Chloride Level 103 Carbon Dioxide Level 28.4 Anion Gap 10 Estimat Glomerular Filtration Rate 58 Total Creatine Kinase 78 66 Troponin I LESS THAN 0.02 LESS THAN 0.02 B-Type Natriuretic Peptide 72 Date/Time Source Procedure Growth Status 10/27/17 01:32 Blood Peripheral Aerobic Blood Culture Pending Received 10/27/17 01:32 Blood Peripheral Anaerobic Blood Culture Pending Received Result Diagram: 10/27/17 0015 10/27/17 0015 Imaging Last Impressions Chest X-Ray 10/27/17 0002 Signed Impressions: Service Date/Time: Friday, October 27, 2017 00:10 - CONCLUSION: Minimal density left lower lobe could be atelectasis or minimal infiltrate. MD Loren Neal VTE Risk Assessment Loren VTE Risk Assessment: Mod/High Risk (score >= 2) Caprini Risk Assessment Model Point Value = 1 Point Value = 2 Point Value = 3 Point Value = 5 Age 41-60 Minor surgery BMI > 25 kg/m2 Swollen legs Varicose veins or History of unexplained or recurrent spontaneous Oral contraceptives or hormone replacement Sepsis (< 1 month) Serious lung disease, including pneumonia (< 1 month) Abnormal pulmonary function Acute myocardial infarction Congestive heart failure (< 1 month) History of inflammatory bowel disease Medical patient at bed rest Age 61-74 Arthroscopic surgery Major open surgery (> 45 min) Laparoscopic surgery (> 45 min) Malignancy Confined to bed (> 72 hours) Immobilizing plaster cast Central venous access Age >= 75 History of VTE Family history of VTE Factor V Leiden Prothrombin [id number] Lupus anticoagulant Anticardiolipin antibodies Elevated serum homocysteine Heparin-induced thrombocytopenia Other congenital or acquired thrombophilia Stroke (< 1 month) Elective arthroplasty Hip, pelvis, or leg fracture Acute spinal cord injury (< 1 month) Prophylaxis Regimen Total Risk Factor Score Risk Level Prophylaxis Regimen 0-1 Low Early ambulation 2 Moderate Order ONE of the following: *Sequential Compression Device (SCD) *Heparin 5000 units SQ BID 3-4 Higher Order ONE of the following medications: *Heparin 5000 units SQ TID *Enoxaparin/Lovenox 40 mg SQ daily (WT < 150 kg, CrCl > 30 mL/min) *Enoxaparin/Lovenox 30 mg SQ daily (WT < 150 kg, CrCl > 10-29 mL/min) *Enoxaparin/Lovenox 30 mg SQ BID (WT < 150 kg, CrCl > 30 mL/min) AND/OR *Sequential Compression Device (SCD) 5 or more Highest Order ONE of the following medications: *Heparin 5000 units SQ TID (Preferred with Epidurals) *Enoxaparin/Lovenox 40 mg SQ daily (WT < 150 kg, CrCl > 30 mL/min) *Enoxaparin/Lovenox 30 mg SQ daily (WT < 150 kg, CrCl > 10-29 mL/min) *Enoxaparin/Lovenox 30 mg SQ BID (WT < 150 kg, CrCl > 30 mL/min) AND *Sequential Compression Device (SCD) Assessment and Plan Problem List: (1) COPD exacerbation ICD Codes: J44.1 - Chronic obstructive pulmonary disease with (acute) exacerbation Status: Acute Plan: COPD with exacerbation Abnormal CXR with possible pneumonia vs. atelectasis - Pt is a 72 y/o WF with COPD, HTN, Hyperlipidemia, CAD and Hx of PVD. - She presented to the ED at [facility] [place] on 10/26/17 with complaints of worsening SOB over the last week which has progressively worsened with ambulation. Then yesterday she had increased SOB at rest and wheezing. She tried using her nebulizer treatment with ipratropium yesterday afternoon but this did not help and this prompted her evaluation in the ED. - Pt was given IV Patricia-Medrol 125mg, Duoneb treatment in the ED. - Labs revealed an slightly elevated WBC count of 12.9. - CXR (10/27/17) --> minimal density left lower lobe could be atelectasis or minimal infiltrate. - Pt was given IV Azithromycin and Rocephin overnight. Did has not required supplemental O2. - Cont. home dose of Advair BID - Cont. Solu-Medrol 60mg Q6H - Cont. Atrovent nebs Q6H (pt has had adverse reaction to Albuterol nebs in the past but did tolerate the Duonebs in the ED) - Repeat CXR today - Cont. Azithromycin po - She will need a steroid taper at discharge - Pt reports that she has nebulizer medications at home - Supportive care HTN - Hold home meds for now as pts BP is low this morning. She reports that she normally takes her BP meds at night but did not take them last night - Vasotec PRN PVD - Pt has had previous RLE fem-pop and stenting. - She has pulses bilaterally that are dopplerable. Pt has been referred to Dr. Owens as an outpt for evaluation of LLE as she has had some reported claudication - No concern for vascular compromise at this time. GERD - PPI Depression - Cont. home meds DVT prophylaxis with SCDs (2) HTN (hypertension) ICD Codes: I10 - Essential (primary) hypertension Status: Chronic (3) PVD (peripheral vascular disease) ICD Codes: I73.9 - Peripheral vascular disease, unspecified Status: Acute (4) CAD (coronary artery disease) ICD Codes: I25.10 - Atherosclerotic heart disease of eagle coronary artery without angina pectoris Status: Chronic (5) Fibromyalgia ICD Codes: M79.7 - Fibromyalgia Status: Acute Assessment and Plan Patient examined. Assessment and plan formulated with Ryanne Acosta PA-C. I agree with the above. Pt with improved SOB/wheezing. Discharge to home on PO azithromycin. F/u with PCP, Dr. Katy Alcala in 1 week. Ryanne Acosta Oct 27, 2017 08:07 London Johnson DO Oct 31, 2017 22:37
[2017-10-27] MEDS ORDERED: ADVA250A INH (08:23)
[2017-10-27] MEDS: methylPREDNISolone SOD SUCC 125 MG/2 ML VIAL IV PUSH SCH ×2 (08:56→15:48)
[2017-10-27] MEDS ORDERED: VENLAFAXINE HCL XR 75 MG CAP PO SCH (09:00)
[2017-10-27] MEDS ORDERED: BUDESONIDE-FORMOTEROL 160/4.5 MCG INHALER INH SCH (09:00)
[2017-10-27] MEDS ORDERED: methylPREDNISolone SOD SUCC 40 MG/1 ML VIAL IV PUSH SCH (09:00)
[2017-10-27] MEDS ORDERED: PANTOPRAZOLE SOD 20 MG DELAYED RELEASE TAB PO SCH (09:00)
[2017-10-27] MEDS ORDERED: ASPIRIN 81 MG CHEW TAB CHEW SCH (09:00)
[2017-10-27] MEDS ORDERED: AZIT250T3 PO (11:28)
--- NOTE | 2017-10-27 11:33 | HHI.FF ---
Face to Face Verification Diagnosis: (1) Hypotension (2) COPD exacerbation (3) HTN (hypertension) (4) PVD (peripheral vascular disease) (5) Fibromyalgia (6) CAD (coronary artery disease) Home Health Nursing Order: Signs/symptoms of disease process Nursing assessment with vital signs I have seen patient Kacie Stephen on 10/27/17. My clinical findings support the need for the requested home health care services because: Patient has SOB I certify that my clinical findings support that this patient is homebound because: Hx COPD- exertion dyspnea/weakness Ryanne Acosta Oct 27, 2017 11:33 London Johnson DO Oct 27, 2017 11:34
[2017-10-27] MEDS ORDERED: SODIUM CHLORID 0.9% 500 ML INJ 500 ML IV SCH (12:00)
--- NOTE | 2017-10-27 12:14 | RADRPT ---
EXAM DATE/TIME: 10/27/2017 11:59 [facility] COMPARISON: CHEST SINGLE AP, October 27, 2017, 0:10. INDICATIONS : Short of breath, evaluate for pneumonia left lower lobe MEDICAL HISTORY : Chronic obstructive pulmonary disease. Hypertension SURGICAL HISTORY : Coronary artery stent. ENCOUNTER: Subsequent ACUITY: 3 days PAIN SCORE: 0/10 LOCATION: Bilateral chest FINDINGS: A single view of the chest demonstrates the lungs to be symmetrically aerated without evidence of mas s, infiltrate or effusion. The cardiomediastinal contours are unremarkable. Osseous structures are intact. CONCLUSION: No acute disease. Adonis Gomez MD FACR on October 27, 2017 at 12:12 Board Certified Radiologist. This report was verified electronically.
[2017-10-27 13:13] LABS: TROPONIN I LESS THAN 0.02 NG/ML (0.02-0.05)
--- NOTE | 2017-10-27 14:53 | EKG ---
Date Performed: 10/27/2017 Time Performed: 12:36:50 PTAGE: 72 years EKG: Sinus rhythm WITH OCCASIONAL VENTRICULAR PREMATURE COMPLEXES POSSIBLE RIGHT VENTRICULAR CONDUCTION DELAY BORDERLI NE ECG Compared to prior electrocardiogram, Premature ventricular contractions are now present . PREVIOUS TRACING : 10/27/2017 07.26 DOCTOR: Imer yLon Interpretating Date/Time 10/27/2017 14:52:34
--- NOTE | 2017-10-27 15:29 | EKG ---
Date Performed: 10/26/2017 Time Performed: 23:57:52 PTAGE: 72 years EKG: Sinus rhythm Since the previous tracing, no significant change noted NORMAL ECG PREVIOUS TRACING : 11/20/16 @ 0104 DOCTOR: Chandra Silva Interpretating Date/Time 10/27/2017 15:21:45
--- NOTE | 2017-10-27 15:29 | EKG ---
Date Performed: 10/27/2017 Time Performed: 07:26:07 PTAGE: 72 years EKG: Sinus rhythm LOW QRS VOLTAGE IN EXTREMITY LEADS Since the previous tracing, no significant change noted BORDERLIN E ECG PREVIOUS TRACING : 10/26/2017 23.57 DOCTOR: Chandra Silva Interpretating Date/Time 10/27/2017 15:21:55
[2017-10-28] MEDS ORDERED: AZITHROMYCIN 250 MG TAB PO SCH (09:00)
== END 2017-10-27 18:15 | disposition home or self-care (01) ==
LOC: NEPE 23:43 → NEDA 10-27 02:01 → NEPFCDU 10-27 03:45
PROVIDERS: ADMIT Hospitalist; ATTEND Hospitalist
DX: J18.9 Pneumonia, unspecified organism (principal); J44.1 Chronic obstructive pulmonary disease with (acute) exacerbation; I10 Essential (primary) hypertension; R07.9 Chest pain, unspecified; E78.00 Pure hypercholesterolemia, unspecified; I73.9 Peripheral vascular disease, unspecified; I25.10 Atherosclerotic heart disease of native coronary artery without angina pectoris; E78.5 Hyperlipidemia, unspecified; E55.9 Vitamin D deficiency, unspecified; M79.7 Fibromyalgia; G89.29 Other chronic pain; Z87.891 Personal history of nicotine dependence; K21.9 Gastro-esophageal reflux disease without esophagitis; R51 Headache; F41.9 Anxiety disorder, unspecified; F32.9 Major depressive disorder, single episode, unspecified; Z95.5 Presence of coronary angioplasty implant and graft
CPT/HCPCS: 71045; 80053; 82550; 83735; 83880; 84484; 85025; 85610; 85730; 87040; 93005; 94640; 94664; 96361; 96365; 96366; 96375; 96376; 99285; G0378; J0456; J0696; J2930; J7040; J7050; J7613; J7644

== ENCOUNTER 2017-12-08 06:24 | Day surgery (SDC) | payer MEDICARE, OTHER ==
[~2017-12-08] VITALS: Ht 157.5 cm; Wt 65.2 kg
[~2017-12-08 06:24] MED LIST changes: +ACET500L PO; +ADVA250A INH; -ALPR.25 PO; -AMLO5TAB2 PO; -CALC500T37 PO; -CILO100T PO; -CYAN100015 BUCCAL; -CYCL10TA PO; -D200CAP PO; +FLUT1AER8 INH; -GABA100C4 PO; -GEMF600T PO; -LIPI40TA PO; -LISI-515 PO; +NITR1SUB3 SL; -PRED20 PO; -TRAM50 PO
[2017-12-08] MEDS ORDERED: IOHEXOL 350 MG/ML 50 ML BTL (for Cath Lab) OTHER ONE (06:25)
[2017-12-08] MEDS ORDERED: IOHEXOL 350 MG/ML 100 ML BTL (for Cath Lab) OTHER ONE (06:25)
[2017-12-08 06:55] VITALS: BP 137/88; PULSE 93; RESP 18; O2SAT 98
[2017-12-08] MEDS ORDERED: ATOR40TA16 PO (06:55)
[2017-12-08] MEDS ORDERED: VITA200013 (06:55)
[2017-12-08] MEDS ORDERED: METO1TAB9 PO (06:55)
[2017-12-08] MEDS ORDERED: SODIUM CHLOR 0.9% 1000 ML INJ 1,000 ML IV SCH ×2 (07:00→09:28)
[2017-12-08] MEDS ORDERED: HEPARIN-NS/PF INJ 1,000 ML ONE (08:19)
[2017-12-08] MEDS ORDERED: NITROGLYCERIN INJ 5 ML ONE (08:29)
[2017-12-08] MEDS ORDERED: MIDAZOLAM HCL 2 MG/2 ML VIAL ONE (08:29)
[2017-12-08] MEDS ORDERED: HEPARIN SODIUM - IV 10,000 UNITS/10 ML VIAL ONE (08:29)
[2017-12-08] MEDS ORDERED: HEPARIN-NS/PF INJ 500 ML ONE (09:04)
[2017-12-08] MEDS ORDERED: LIDOCAINE HCL 1% 50 ML VIAL INFIL PRN (09:30)
[2017-12-08] MEDS ORDERED: BACITRACIN OINT 0.9 GM PKT TOP ONE (09:30)
[2017-12-08] MEDS ORDERED: LORazepam 2 MG/ML VIAL IV PUSH PRN (09:30)
[2017-12-08] MEDS ORDERED: oxyCODONE/ACETAMINOPHEN 5 MG/325 MG TAB PO PRN (09:30)
[2017-12-08] MEDS ORDERED: MISC INFORMATION XX ONE (09:30)
--- NOTE | 2017-12-08 09:32 | CATHPROC ---
[employer] HIS Report Study Information Study Number Scheduled Start Study Start [id number] 12/08/2017 Dec 08 2017 7:59AM Referring Institution Admit Source Facility Department 1 Other [facility] - Sfdc Developer Physician and Clinical Staff Initial Garry Kaplan Shot Blaster Xiomara Lantigua BSN Shot Blaster Ryanne Patino,RN Recorder Bob Craig,RT(R) Scrub Chris Orozco,RT(R) Procedures Performed Procedure Location (Site) Vessel Name Abdominal Angiogram Abd Aorta (A3) Aorta Angiogram (manual) Fem L. Com (L7) Femoral Art Angiogram (manual) Iliac L. Com. (L4) Illiac Art. Angiogram (manual) Popliteal L (L10) Popliteal Angiogram (manual) Popliteal R (R10) Popliteal Angiogram (manual) SFA (left) Femoral Art Angiogram (manual) Tib, Ant. (left) Popliteal Angiogram (manual) Tib, Ant. (right) Popliteal Angiogram (manual) Tib, Post (Left) Popliteal Angiogram (manual) Tib, Post (right) Popliteal Wire insertion Fem Art (left) Femoral Art Equipment Time Slip Tender Description Size Mfg Part Number Used/Scraped [id number] 08:52 ANGIO-DYNAMICS OMNI FLUSH 65CM CATHETER FR 5 Used *[id number] 08:37 CORDIS/ VLAD RIM SUPER TORQUE CATHETER FR 5 Used *[id number] *[id number] 08:37 MALLINCKRODT SYRINGE, ANGIOMAT 150ML 150ML [id number] Used [id number] 08:37 MEDLINE INDUSTRIES PACK, CCL CUSTOM * Used *[id number] 08:37 MEDLINE PACER PEN, SKIN DUAL W/ RULER * Used *[id number] 08:37 [employer] MEDICAL WIRE, EXCHANGE 260CM 3MMJ 260CM Used *[id number] 08:37 NAMIC MANIFOLD, 4 PORT * Used *[id number] 08:37 NAMIC TUBING, HIGH PRESSURE 48" 48" Used *[id number] 08:37 NYCOMED OMNIPAQUE, 300 MG, 150ML 150ML [id number] Used 08:45 NYCOMED OMNIPAQUE, 300 MG, 50ML 50ML [id number] Used [id number] 08:37 NAVARRO MEDICAL BLANKET,WARM AIR CCL * Used *[id number] 08:37 TERUMO MEDICAL SHEATH, FR5 TERUMO (10CM) FR 5 Used *[id number] CATHETER, FR4 GUIDE ANGLED 09:03 TERUMO MEDICAL/VLAD FR 4 [id number] *[id number] Used 120CM WIRE, ANGLE GLIDE STIFF .035 [id number] 08:37 TERUMO MEDICAL/VLAD 260CM Used 260CM *[id number] History: Current Medications Medication Dosage/Unit Route Frequency Last Date/Time Taken ASA Prilosec Statins (any) 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: Allergies Allergy Reaction Sulfa (Sulfonamide Antibiotics) HIVES albuterol SHAKES ciprofloxacin salmeterol fluticasone fluticasone furoate History: Risk Factors Family History of Hypertension Dyslipidemia Previous NH Previous Heart Failure Premature CAD Yes Yes No No No Prior Valve Prior PCI Prior PCIDate Prior CABG Surgery No Yes 11/18/2000 No Cerebrovascular Peripheral Artery Chronic Lung On Dialysis Diabetes Disease Disease Disease No No Yes Yes No History: Stress Tests Stress or Imaging Studies Performed No History: Other Disease Selection Items HTN History: Other Current Smoker No Labs Hgb (g/dl) Hct (%) RBC (MIL/MM3) WBC (l/cumm) Platelets (thousands) 11.60-17.00 35.00-51.00 4.00-5.90 4.00-11.00 150.00-450.00 13.8 42.1 4.3 8.5 350 Glucose (mg/dl) BUN (mg/dl) Creatinine (mg/dl) BUN:Creatinine (1:x) 74.00-106.00 7.00-18.00 0.50-1.30 10.00-20.00 75 20 0.8 25 Na (meq/l) K (meq/l) Cl (meq/l) CO2 (mmol/L) Ca (mg/dl) 136.00-145.00 3.50-5.10 98.00-107.00 21.00-32.00 8.50-10.10 145 4.4 103 14 10.3 PT (sec) INR (PTT:PT) 9.80-11.60 0.90-1.10 10.4 0.99 CPK-MB (ng/ML) 0.50-3.60 Not Drawn Medication Medication Total Dose (Bolus/Oral) Medication Total Dosage/Unit 1% XYLOCAINE 20 mL FENTANYL 50 mcg VERSED 2 mg Medications (Bolus/Oral) Medication Time Given Dosage/Unit Administered By Reason VERSED 12/08/2017 8:40:00 AM 1 mg Ryanne Patino 1 mg VERSED given in lab by Ryanne Patino RN in Left Antecubital via Peripheral IV. FENTANYL 12/08/2017 8:41:00 AM 25 mcg Ryanne Patino 25 mcg FENTANYL given in lab by Ryanne Patino RN in Left Antecubital via Peripheral IV. 1% XYLOCAINE 12/08/2017 8:43:11 AM 20 mL Garry Owens 20 mL 1% XYLOCAINE given in lab by Garry Owens in Left Groin via Subcutaneous. VERSED 12/08/2017 9:02:04 AM 1 mg Ryanne Patino 1 mg VERSED given in lab by Ryanne Patino RN in Left Antecubital via Peripheral IV. FENTANYL 12/08/2017 9:02:13 AM 25 mcg Ryanne Patino 25 mcg FENTANYL given in lab by Ryanne Patino RN in Left Antecubital via Peripheral IV. Medication (Drip) Medication Time Given Dosage/Unit Concentration/Unit Diluent (ml) Solution IV Solutions 12/08/2017 8:13:07 AM 0 mL (IV) 500 NaCl .9 IV Solutions given in lab by Xiomara Lantigua BSN in Left Antecubital via Peripheral IV. Pump/Dri p Flow = 20 ml/hr using NaCl .9. Initial Case Assessment Cardiovascular HR Rhythm Chest Pain 86 Sinus 0 Edema Present Skin color Skin None Normal Warm Dry Circulatory - Right Pulses Dorsalis Pedis Posterior Tibial Femoral 1 1 2 Scale (0,1,2,3,4,d) Circulatory - Left Pulses Dorsalis Pedis Posterior Tibial Femoral 1 0 2 Scale (0,1,2,3,4,d) Neurological State Oriented to time-place- Alert Moves all extremities person Respiration - General Respiration Rate SpO2 (%) O2 (lpm) (B/min) 15 96 0 Final Case Assessment Cardiovascular HR Rhythm NIBP Chest Pain 95 Sinus 125/86 0 Edema Present Skin color Skin None Normal Warm Dry Circulatory - Right Pulses Dorsalis Pedis Posterior Tibial Femoral 1 1 1 Scale (0,1,2,3,4,d) Circulatory - Left Pulses Dorsalis Pedis Posterior Tibial Femoral 1 0 1 Scale (0,1,2,3,4,d) Neurological State Oriented to time-place- Alert Moves all extremities person Respiration - General Respiration Rate SpO2 (%) O2 (lpm) (B/min) 22 98 2 Chronological Log Time Study Chronological Log 8:08:54 Patient arrived via Bed. 8:12:55 Patient Name, D.O.B, / Armband Verified By R.N. 8:12:56 Consent signed by the physician and the patient and verified by the Sfd[employer] Developer staff. 8:12:56 Pre-op and post- op instructions given; patient acknowledges understanding of instructions. 8:12:57 Verbal Stimulation=2 Physical Stimulation=2 Airway=2 Respiration=2 TOTAL=8. (0=absent, 1=li mited, 2=present) 8:12:58 Presedation assessment performed by Sfdc Developer RN. 8:13:01 Patient has been NPO for More than 6Hrs. 8:13:02 Skin Breakdown- none per patient. 8:13:03 Patient Warmer Placed on the Table. 8:13:04 Lissy Prominences Protected 8:13:06 A # 20 IV was noted in the Antecubital (left). Grade = 0 IV Solutions given in lab by Xiomara Lantigua BSN in Left Antecubital via Peripheral IV. Pu mp/Drip Flow = 20 ml/hr 8:13:07 using NaCl .9. 8:13:09 History and physical on the chart or being dictated. Assessment: Initial Case, HR=86 BPM, Rhythm=Sinus, Chest Pain=0, Edema=None, Color=Normal, Skin = Warm, Dry Right Pulses: Oral Ped=1, Post Tib=1, Femoral=2 8:13:10 Left Pulses: Oral Ped=1, Post Tib=0, Femoral=2 Neurological: State=Alert, Ox3, HULL Respiration: Resp=15 B/min, SpO2=96 %, O2=0 lpm Vitals capture started with the following parameters, Patient=Adult, Interval=5 min, Initial Pr wbwzye=319 mmHg, 8:17:44 Deflation Rate=5 mmHg, Cuff placed on Right Ankle 8:18:17 HR=78 bpm, ITYT=095/81 mmhg, SpO2=97.0 %, Resp=26 B/min, Pain=0, Yuli=10, Marsh=2 8:22:17 Reference ECG taken 8:23:18 HR=81 bpm, HQTW=002/77 mmhg, SpO2=95.0 %, Resp=22 B/min, Pain=0, Yuli=10, Marsh=2 8:27:02 Bilateral groins prepped with 2% chlorhexidine, and draped after a 3 minute waiting time. 8:28:50 HR=83 bpm, JGZO=233/81 mmhg, SpO2=96.0 %, Resp=21 B/min, Pain=0, Yuli=10, Marsh=2 8:29:21 MD paged 8:32:56 Pressure channel 1 zeroed. 8:33:19 HR=85 bpm, MGGS=431/83 mmhg, SpO2=95.0 %, Resp=26 B/min, Pain=0, Yuli=10, Marsh=2 8:36:58 MD arrived. 8:38:20 HR=84 bpm, QVBB=891/69 mmhg, SpO2=94.0 %, Resp=24 B/min, Pain=0, Yuli=10, Marsh=2 8:40:00 1 mg VERSED given in lab by Ryanne Patino RN in Left Antecubital via Peripheral IV. 8:41:00 25 mcg FENTANYL given in lab by Ryanne Patino, AVA in Left Antecubital via Peripheral IV. Time Out. Correct patient, correct procedure, correct physician, labs, allergies, and equipment verified with lab tester 8:41:49 team present. Fire risk assesment completed (see hard stop sheet for coding). Time Out Concu rred by MD and individual staff in procedure. 8:41:59 Case Start 8:43:11 20 mL 1% XYLOCAINE given in lab by Garry Owens in Left Groin via Subcutaneous. 8:43:19 HR=90 bpm, ZGHY=758/79 mmhg, SpO2=90.0 %, Resp=19 B/min, Pain=0, Yuli=10, Marsh=2 8:43:58 Access site was Left Femoral Artery. 8:44:09 A SHEATH, FR5 TERUMO (10CM) FR 5 was advanced into the Fem Art (left) using the Percutaneous technique. A PIGTAIL ANG. INFINITI CATHETER FR 5 was advanced over a wire. OMNIPAQUE, 300 MG, 50ML 50ML was used for 8:45:01 injections. 8:46:21 Through a PIGTAIL ANG. INFINITI CATHETER FR 5, The Abdominal Aorta was injected with 12 cc's of contrast. After removing the current catheter a RIM SUPER TORQUE CATHETER FR 5 was advanced over a WIRE, A NGLE GLIDE 8:47:23 STIFF .035 260CM 260CM. 8:48:18 HR=83 bpm, VDSX=014/79 mmhg, SpO2=95.0 %, Resp=19 B/min, Pain=0, Yuli=10, Marsh=2 Recorded Pressure: LIlcA, HR=85, Condition=Condition 1 8:51:39 (Left Iliac Artery) LIlcA 113/67/88 8:53:19 HR=85 bpm, IZNU=896/78 mmhg, SpO2=98.0 %, Resp=21 B/min, Pain=0, Yuli=10, Marsh=2 After removing the current catheter a OMNI FLUSH 65CM CATHETER FR 5 was advanced over a WIRE, AN GLE GLIDE 8:54:08 STIFF .035 260CM 260CM. 8:58:02 A WIRE, ANGLE GLIDE STIFF .035 260CM 260CM was inserted via Fem Art (left). 8:58:16 HR=83 bpm, KYRI=748/75 mmhg, SpO2=98.0 %, Resp=23 B/min, Pain=0, Yuli=10, Marsh=2 9:02:04 1 mg VERSED given in lab by Ryanne Patino, AVA in Left Antecubital via Peripheral IV. 9:02:13 25 mcg FENTANYL given in lab by Ryanne Patino, AVA in Left Antecubital via Peripheral IV. 9:03:19 HR=86 bpm, IPJV=752/75 mmhg, SpO2=98.0 %, Resp=19 B/min, Pain=0, Yuli=10, Marsh=2 Recorded Pressure: LIlcA, HR=84, Condition=Condition 1 9:05:08 (Left Iliac Artery) LIlcA 107/61/82 9:08:18 HR=84 bpm, HRHB=386/71 mmhg, SpO2=97.0 %, Resp=20 B/min, Pain=0, Yuli=10, Marsh=2 9:10:30 Popliteal R (R10) angiogram, manually injected. 9:10:56 Popliteal R (R10) angiogram, manually injected. 9:11:45 Popliteal R (R10) angiogram, manually injected. 9:12:01 Tib, Ant. (right) angiogram, manually injected. 9:12:33 Tib, Post (right) angiogram, manually injected. 9:13:06 Tib, Post (right) angiogram, manually injected. 9:13:19 HR=85 bpm, HKMD=172/73 mmhg, SpO2=98.0 %, Resp=20 B/min, Pain=0, Yuli=10, Marsh=2 Recorded Pressure: LIlcA, HR=83, Condition=Condition 1 9:15:45 (Left Iliac Artery) LIlcA 97/63/80 9:16:50 Iliac L. Com. (L4) angiogram, manually injected. 9:18:20 HR=83 bpm, XCPW=989/80 mmhg, SpO2=98.0 %, Resp=24 B/min, Pain=0, Yuli=10, Marsh=2 9:19:05 Iliac L. Com. (L4) angiogram, manually injected. 9:20:49 Fem L. Com (L7) angiogram, manually injected. 9:20:58 SFA (left) angiogram, manually injected. 9:21:12 Popliteal L (L10) angiogram, manually injected. 9:21:25 Tib, Ant. (left) angiogram, manually injected. 9:21:41 Tib, Post (Left) angiogram, manually injected. 9:22:31 Tib, Post (Left) angiogram, manually injected. 9:23:19 HR=87 bpm, RWOL=398/86 mmhg, SpO2=98.0 %, Resp=15 B/min, Pain=0, Yuli=10, Marsh=2 9:24:31 Case End Assessment: Final Case, HR=95 BPM, Rhythm=Sinus, AQIW=541/86 mmhg, Chest Pain=0, Edema=None, Color=Normal, Skin = Warm, Dry Right Pulses: Oral Ped=1, Post Tib=1, Femoral=1 9:24:54 Left Pulses: Oral Ped=1, Post Tib=0, Femoral=1 Neurological: State=Alert, Ox3, HULL Respiration: Resp=22 B/min, SpO2=98 %, O2=2 lpm 9:27:47 Sterile dressing applied to site 9:27:48 No case complications noted. 9:27:59 Cine recording checked. 9:28:02 Bedside Report will be given. 9:28:22 HORQ=992/85 mmhg, SpO2=99.0 %, Pain=0, Yuli=10, Marsh=2 9:30:40 Patient moved to stretcher End Study - Contrast Media Used In Study Contrast Total Opened (mL) Total Used (mL) Total Wasted (mL) Omnipaque 200 160 40 End Study - Maximum Contrast Load Max Contrast Load (mL) 407.4 End Study - Radiation Exposure Fluoro Time (minutes) 17.7 End Study - Patient Disposition Complications Transferred To Interventional Outcome No Outpatient Bed No attempt made
--- NOTE | 2017-12-08 10:26 | MA ---
cc: Garry Owens MD DATE: 12/08/2017 PROCEDURES PERFORMED: 1. Descending aortography. 2. Bilateral lower extremity peripheral angiography. 3. Ascending aortography. METHOD: The risks, benefits and alternatives discussed with the patient. The patient understood and consented to the procedure. PROCEDURAL STATEMENT: The patient brought into the catheterization lab, and placed on the catheterization table. The left groin was prepped and draped in the usual sterile fashion. The left groin was anesthetized with 2% lidocaine. The common femoral artery was cannulated and a 5-Faroese 11 cm sheath was placed without difficulty. DESCENDING AORTOGRAPHY: Descending aortography was performed anteroposterior view using a 24 mL contrast injection with good opacification. Descending aorta has moderate atherosclerosis and calcification throughout its course in addition to aneurysmal segment just above the bifurcation. Bilateral renal arteries are patent. There is a 10 mmHg trans-gradient across the aorta. PERIPHERAL ANGIOGRAPHY: 1. Right common iliac artery has a stent present. There is mild luminal irregularities. Right external has eccentric calcium present in the proximal mid segment. It does not appear to be highly obstructive, less than 50%. The right common femoral has a 60% eccentric calcific stenosis above what looks like the anastomosis of a prior fem-pop bypass graft. Profunda is widely patent. Right superficial femoral artery proximally approximately has 80% calcific stenosis. The mid right superficial femoral artery has what looks like calcific 70% stenosis. It is tubular in nature. The right popliteal looks like it has a 60% stenosis just at the bifurcation of the geniculate artery. It is a discrete stenosis. There is 2-vessel runoff in the right lower extremity. The posterior tibial and anterior tibial arteries are patent. Peroneal is not well visualized. 2. Left common iliac artery has a 50% angiographic stenosis, but there is a 20 mmHg translesional gradient. 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 Moderate caliber size left external iliac artery has mild luminal irregularities. Left internal iliac artery is not well visualized. Left common femoral artery has 60-70% calcific stenosis. Left profunda superficial femoral artery, popliteal artery has mild luminal irregularities. Popliteal may have more of moderate stenosis, but not high grade. There is 3-vessel runoff left lower extremity, moderate calcium at the origin of the anterior tibial artery, peroneal is small caliber size. CONCLUSIONS: 1. 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 2. Descending aortic atherosclerosis and aneurysm present. 3. Moderate to severe right superficial femoral, popliteal and common femoral artery stenosis. 4. Moderate left common femoral artery stenosis. PLAN: We had difficulty even trying to engage the right common iliac artery from a contralateral approach. Endovascular options are somewhat limited given the stenosis and aneurysm at the level of the common femoral artery on the right and the proximal SFA stenosis make an antegrade stick difficult. Popliteal retrograde approach may be a consideration, but I would also like to get the opinion from a vascular surgeon on the descending aorta and the common iliac arteries, and the left common iliac artery, particularly where the aneurysm is present. May consider CTA with runoff for better visualization. We will discuss with Dr. Castro for potential surgical versus endovascular options. Garry Owens MD ALVARO/DL , 09:39 AM , 10:25 AM
--- NOTE | 2017-12-08 11:42 | PD.VS.CON ---
History of Present Illness Chief Complaint: B LE PAD with worsening claudication over the past 4W Consult Requested by: Dr. Owens History of Present Illness 72/F with a PMH of COPD, CAD, PVD and Osteoporosis Pt presented today for a diagnostic B LE Angiogram w/ Dr. Owens for worsening B LE claudication Pt findings Descending aortic atherosclerosis and aneurysm present Moderate to severe right superficial femoral, popliteal and common femoral artery stenosis/Moderate left common femoral artery stenosis No wounds or tissue loss present Pt takes an ASA/Statin daily Pt does not smoke (Maeve Salazar) Past/Family/Social History Past Medical History PVD CAD COPD Osteoporosis Past Surgical History Appendectomy Tonsillectomy Hysterectomy R LE Distal Bypass in 1999 (outside institution, [place]) Right common iliac artery stent- (2013 Dr. Muniz) Social History Smoking Hx, Quit 5 years ago Denied ETOH Denied Illicit drug usage Lives with her daughter Retired- S[employer] Has 4 children (Maeve Salazar) Home Medications Reported Medications Cholecalciferol (Vitamin D) 2,000 Unit Cap, CAP 12/08/17 Metoprolol Succinate ER 24 HR (Metoprolol Succinate ER 24 HR) 50 Mg Tab, 50 MG PO DAILY, #30 TAB 0 Refills 12/08/17 Atorvastatin (Atorvastatin) 40 Mg Tab, 40 MG PO HS for Cholesterol Management, # 30 TAB 0 Refills 12/08/17 Fluticasone-Salmeterol Inh (Airduo Respiclick Inh) 232-14 Mcg Inh, 1 PUFF INH BID, INH 0 Refills 10/27/17 Acetaminophen Liq (Acetaminophen Extra Strength Liq) 500 Mg/15 Ml Soln, 500 MG PO Q4-6H Y for PAIN SCALE 1 TO 6, ML 0 Refills 10/27/17 Venlafaxine (Effexor) 75 Mg Tab, 150 MG PO DAILY, #30 TAB 0 Refills 10/10/16 Omeprazole (Omeprazole) 20 Mg Tab, 20 MG PO DAILY, #30 TAB 0 Refills 10/10/16 Aspirin (Aspirin) 81 Mg Chew, 81 MG CHEW DAILY, TAB 0 Refills 10/10/16 Discontinued Reported Medications Fluticasone-Salmeterol Inh (Advair Diskus Inh) 250-50 Mcg/Blist Aer, 1 PUFF INH BID, #1 INHALER 0 Refills Rinse mouth after use. 10/27/17 Nitroglycerin SL (Nitroglycerin SL) 0.4 Mg Subl, 0.4 MG SL DIRECTED Y for CHEST PAIN, #100 TAB.SL 0 Refills ONE TABLET UNDER THE TONGUE NEEDED FOR CHEST PAIN, MAY REPEAT EVERY FIVE MINUTES FOR A TOTAL OF 3 DOSES OR CALL 911 IF NO RELIEF 10/27/17 Discontinued Scripts Azithromycin (Azithromycin) 250 Mg Tab, 500 MG PO DAILY for copd exacerbation, # 5 TAB Prov:Ryanne Acosta 10/27/17 Coded Allergies: Sulfa (Sulfonamide Antibiotics) (Unverified Allergy, Severe, HIVES, 10/27/17 ) HIVES; THROAT SWELLING; SEVERE REACTION albuterol (Unverified Allergy, Severe, SHAKES & HIGH BP, 10/27/17) SEVERE REACTION ciprofloxacin (Unverified Allergy, Severe, 10/27/17) SHAKES ALL OVER; ELEVATED BLOOD PRESSURE fluticasone (Unverified Allergy, Severe, 10/27/17) SHAKES ALL OVER; ELEVATES BLOOD PRESSURE; SEVERE REACTION fluticasone furoate (Unverified Allergy, Severe, 10/27/17) SHAKES ALL OVER; ELEVATES BLOOD PRESSURE; SEVERE REACTION salmeterol (Unverified Allergy, Severe, 10/27/17) SHAKES ALL OVER; ELEVATES BLOOD PRESSURE; SEVERE REACTION Review of Systems Constitutional: DENIES: Fever, Chills Cardiovascular: COMPLAINS OF: Claudication (B LE ), DENIES: Chest pain Integumentary: DENIES: Abnormal pigmentation (Maeve Salazar) Physical Exam Vitals/I&O Date Time Temp Pulse Resp B/P (MAP) Pulse Ox O2 Delivery O2 Flow Rate FiO2 12/08/17 10:14 93 Room Air 12/08/17 06:55 93 18 137/88 (104) 98 Neuro: GCS15 CN 2-12 intact Speech clear HEENT: RAS Neck: No JVD distention Heart: RRR Lungs: CTA Abdomen: S/NT Vascular: Non Palpable distal pulses present Non Palpable R/L Femoral pulses Extremities: LE warm w/ motor intact (Maeve Salazar) Assessment and Plan Assessment: (1) PVD (peripheral vascular disease) Status: Chronic Plan 72/F with a PMH of peripheral vascular occlusive disease Pt w/ worsening B LE claudication No wounds or ulcerations present LE warm w/ motor intact Plan Recommend continued daily CV risk factor modification (ASA/Statin therapy) Discussed Angiogram results w/ pt and daughter Arranged out pt f/u to discuss next plan of action Arranged out pt f/u in 2W with a surveillance SHAKIRA/CTA C/A/P Pt agrees w/ plan Maeve Salazar NP [facility] [phone] Discharge Planning Arranged out pt f/u in 2W (Maeve Salazar) Plan Pt seen and examined. Agree with findings as above. Pt with short distance claudication L>R but no true rest pain. No tissue loss. H/O R LE bypass and R iliac stent. Family history of aneurysmal disease. On exam, resting comfortably and no distress. Diminished femoral pulses. 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 R iliac stent patent. 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 R LE bypass occluded. A/ PAD with short distance claudication ? bothersome relative to COPD Rec/ medical management will f/u in my clinic in 2 weeks for discussion of risks/benefits of procedures Pt and daughter are aware of plan and agree Joseph Castro MD FACS RPVI smocking machine operator [facility] [phone] (Joseph Castro MD) Maeve Salazar December 08, 2017 11:42 Joseph Castro MD December 08, 2017 13:15
== END 2017-12-08 14:55 | disposition home or self-care (01) ==
LOC: HDOC 06:24 → HDIC 06:25 → HDOC 14:55
PROVIDERS: ATTEND Internal Medicine
DX: I70.202 Unspecified atherosclerosis of native arteries of extremities, left leg (principal); I70.0 Atherosclerosis of aorta; I72.4 Aneurysm of artery of lower extremity; J44.9 Chronic obstructive pulmonary disease, unspecified; I25.10 Atherosclerotic heart disease of native coronary artery without angina pectoris; M81.0 Age-related osteoporosis without current pathological fracture
CPT/HCPCS: 01916; 36246; 75625; 75716; 86850; 86900; 86901; 99152; 99153; C1769; C1887; C1893; J1644; J2250; J3010; Q9967

== ENCOUNTER 2017-12-10 15:59 | Observation (INO) | payer MEDICARE, OTHER ==
[~2017-12-10 15:59] MED LIST changes: -ADVA250A INH; +ATOR40TA16 PO; -AZIT250T3 PO; +METO1TAB9 PO; -NITR1SUB3 SL; +VITA200013
[2017-12-10 16:00] VITALS: BP 137/80; PULSE 116; RESP 36; TEMP 98.1; O2SAT 92
[2017-12-10] MEDS ORDERED: SODIUM CHLOR 0.9% 1000 ML INJ 1,000 ML IV SCH (16:11)
[2017-12-10] MEDS ORDERED: methylPREDNISolone SOD SUCC 125 MG/2 ML VIAL IV PUSH ONE (16:15)
[2017-12-10] MEDS ORDERED: SODIUM CHLORIDE 0.9% FLUSH 10 ML FLUSH IVF PRN (16:15)
--- NOTE | 2017-12-10 16:16 | PD ---
HPI Chief Complaint: Respiratory Symptoms Time Seen by Provider: 16:04 Travel History International Travel<30 days: No Contact w/Intl Traveler<30days: No Traveled to known affect area: No History of Present Illness HPI 72-year-old female with history of COPD presents for evaluation of cough, sore throat and dyspnea and wheezing. Symptoms started 3 days ago. She reports that she had a prescription for prednisone and azithromycin from her previous visit with her primary care physician she began using this when symptoms started. Symptoms have persisted today which prompted evaluation. Cough is productive with yellow sputum. Symptoms are moderate, not alleviated with her at home Pro Air. She denies chest pain, abdominal pain, fevers or chills, nausea or vomiting. Denies recent travel. Primary care physician is Dr. Alcala. She has no other complaints at this time. PFSH Past Medical History Asthma: No Blood Disorders: No Anxiety: Yes Depression: Yes Heart Rhythm Problems: No Cancer: No Cardiac Catheterization: Yes Cardiovascular Problems: Yes (stent) High Cholesterol: Yes Chest Pain: Yes Congestive Heart Failure: No COPD: Yes Coronary Artery Disease: Yes (stint) Diabetes: No Diminished Hearing: No Diverticulitis: No Endocrine: No Gastrointestinal Disorders: No (GERD) GERD: Yes Glaucoma: Yes Genitourinary: No Headaches: Yes Hepatitis: No Hiatal Hernia: Yes Hypertension: Yes Immune Disorder: No Musculoskeletal: Yes (arthritis) Neurologic: Yes (headaches) Psychiatric: Yes Reproductive: No Respiratory: Yes Integumentary: No Immunizations Current: Yes Sleep Apnea: No Thyroid Disease: No Menopausal: Yes Past Surgical History Abdominal Surgery: Yes (AGE 11 APPENDECTOMY) Body Medical Devices: CARDIAC STENT Cardiac Surgery: Yes (HEART CATH INSERTION STENT; RT LOWER EXTREMITY FEMOROPOPLITEAL BYPASS) Coronary Stent: Yes (X1 CIRC 1999) Gynecologic Surgery: Yes (ISRA SALPINGO-OOPHORECTOMY) Hysterectomy: Yes (PARTIAL) Oral Surgery: Yes (SINUS SX) Other Surgery: Yes (fem-pop right 2001) Social History Alcohol Use: No (rare) Tobacco Use: No (1/2 PPD x 48+ years) Substance Use: No Allergies-Medications (Allergen,Severity, Reaction): Coded Allergies: Sulfa (Sulfonamide Antibiotics) (Verified Allergy, Severe, HIVES, 12/10/17) HIVES; THROAT SWELLING; SEVERE REACTION albuterol (Verified Allergy, Severe, SHAKES & HIGH BP, 12/10/17) SEVERE REACTION ciprofloxacin (Verified Allergy, Severe, 12/10/17) SHAKES ALL OVER; ELEVATED BLOOD PRESSURE fluticasone (Verified Allergy, Severe, 12/10/17) SHAKES ALL OVER; ELEVATES BLOOD PRESSURE; SEVERE REACTION fluticasone furoate (Verified Allergy, Severe, 12/10/17) SHAKES ALL OVER; ELEVATES BLOOD PRESSURE; SEVERE REACTION salmeterol (Verified Allergy, Severe, 12/10/17) SHAKES ALL OVER; ELEVATES BLOOD PRESSURE; SEVERE REACTION Reported Meds & Prescriptions Reported Meds & Active Scripts Active Prednisone (21) 10 mg tab Dose Pack (Prednisone) 10 Mg Pack 10 Mg PO DIRECTED Doxycycline Hyclate 100 Mg Cap 100 Mg PO BID Reported Vitamin D (Cholecalciferol) 2,000 Unit Cap Atorvastatin (Atorvastatin Calcium) 40 Mg Tab 40 Mg PO HS Effexor (Venlafaxine HCl) 75 Mg Tab 150 Mg PO DAILY Omeprazole 20 Mg Tab 20 Mg PO DAILY Aspirin 81 Mg Chew 81 Mg CHEW DAILY Review of Systems Except as stated in HPI: all other systems reviewed are Neg Physical Exam Narrative GENERAL: Well-developed well-nourished female in moderate distress. SKIN: Warm and dry. HEAD: Atraumatic. Normocephalic. EYES: Pupils equal and round. No scleral icterus. No injection or drainage. ENT: No nasal bleeding or discharge. Mucous membranes pink and moist. NECK: Trachea midline. No JVD. CARDIOVASCULAR: Regular rate and rhythm. No murmur appreciated. RESPIRATORY: No accessory muscle use. Diffuse inspiratory and expiratory wheezing bilaterally. GASTROINTESTINAL: Abdomen soft, non-tender, nondistended. Hepatic and splenic margins not palpable. MUSCULOSKELETAL: No obvious deformities. No clubbing. No cyanosis. No edema. NEUROLOGICAL: Awake and alert. No obvious cranial nerve deficits. Motor grossly within normal limits. Normal speech. Data Data Last Documented VS Vital Signs Date Time Temp Pulse Resp B/P (MAP) Pulse Ox O2 Delivery O2 Flow Rate FiO2 12/10/17 16:19 90 Nasal Cannula 4.00 12/10/17 16:18 26 12/10/17 16:00 98.1 116 137/80 (99) Orders Orders Complete Blood Count With Diff (12/10/17 16:11) Basic Metabolic Panel (Bmp) (12/10/17 16:11) Magnesium (Mg) (12/10/17 16:11) Ckmb (Isoenzyme) Profile (12/10/17 16:11) Troponin I (12/10/17 16:11) Iv Access Insert/Monitor (12/10/17 16:11) Electrocardiogram (12/10/17 16:11) Ecg Monitoring (12/10/17 16:11) Oximetry (12/10/17 16:11) Oxygen Administration (12/10/17 16:11) Chest, Pa & Lat (12/10/17 16:11) Sodium Chloride 0.9% Flush (Ns Flush) (12/10/17 16:15) Methylprednisolone So Succ Inj (Solumedr (12/10/17 16:15) Albuterol-Ipratropium Neb (Duoneb Neb) (12/10/17 16:15) Sodium Chlor 0.9% 1000 Ml Inj (Ns 1000 M (12/10/17 16:11) Doxycycline (Vibramycin) (12/10/17 17:45) Admit Order (Ed Use Only) (12/10/17 18:17) Ceftriaxone Inj (Rocephin Inj) (12/10/17 18:30) Azithromycin Inj (Zithromax Inj) (12/10/17 18:30) Vital Signs (Adult) Q4H (12/10/17 18:17) Activity Oob With Assistance (12/10/17 18:17) Diet Regular Basic (12/10/17 Dinner) Labs Laboratory Tests Test 12/10/17 16:15 White Blood Count 15.2 TH/MM3 Red Blood Count 4.71 MIL/MM3 Hemoglobin 14.7 GM/DL Hematocrit 43.8 % Mean Corpuscular Volume 93.0 FL Mean Corpuscular Hemoglobin 31.1 PG Mean Corpuscular Hemoglobin Concent 33.4 % Red Cell Distribution Width 12.9 % Platelet Count 342 TH/MM3 Mean Platelet Volume 7.7 FL Neutrophils (%) (Auto) 82.2 % Lymphocytes (%) (Auto) 8.6 % Monocytes (%) (Auto) 9.0 % Eosinophils (%) (Auto) 0.0 % Basophils (%) (Auto) 0.2 % Neutrophils # (Auto) 12.5 TH/MM3 Lymphocytes # (Auto) 1.3 TH/MM3 Monocytes # (Auto) 1.4 TH/MM3 Eosinophils # (Auto) 0.0 TH/MM3 Basophils # (Auto) 0.0 TH/MM3 CBC Comment DIFF FINAL Differential Comment Blood Urea Nitrogen 14 MG/DL Creatinine 0.94 MG/DL Random Glucose 133 MG/DL Calcium Level 9.5 MG/DL Magnesium Level 2.1 MG/DL Sodium Level 137 MEQ/L Potassium Level 4.0 MEQ/L Chloride Level 100 MEQ/L Carbon Dioxide Level 27.2 MEQ/L Anion Gap 10 MEQ/L Estimat Glomerular Filtration Rate 59 ML/MIN Total Creatine Kinase 58 U/L Troponin I LESS THAN 0.02 NG/ML MDM Medical Decision Making Medical Screen Exam Complete: Yes Emergency Medical Condition: Yes Medical Record Reviewed: Yes Differential Diagnosis COPD exacerbation, bronchitis, pneumonia, pneumothorax, pulmonary embolism Narrative Course The patient was placed on ECG monitoring pulse oximetry. A 12 EKG was obtained revealing sinus tachycardia with a rate of 102, occasional PVCs. Lab work, chest x-ray ordered. The patient will be given IV fluids, duo nebs, Solu- Medrol. Chest x-ray CONCLUSION: 1. COPD with no focal or acute pulmonary infiltrates. 2. Stable exam. No significant change compared to 2017. CBC reveals WBC count of 15.2. BMP is unremarkable. Upon examination she feels improved, her oxygen saturation is 95% on room air. Initially the patient was requesting discharge but then when she stood up her oxygen saturation reduced 89% and she felt short of breath. She is agreeable to hospitalization. Discussed with Dr. Pfeiffer who is agreeable with admission to Dr. Johnson, the patient will be transitioned to IV Rocephin and azithromycin. Diagnosis Primary Impression: COPD exacerbation Additional Impression: Hypoxia Admitting Information Admitting Physician Requests: Admit Additional Instructions: Medication as prescribed. Follow-up with primary care physician as needed. Return for any acutely new or worsening symptoms. Scripts Prednisone (21) 10 mg tab Dose Pack (Prednisone (21) 10 mg tab Dose Pack) 10 Mg Pack 10 MG PO DIRECTED for Inflammation, #1 DSPK 0 Refills Prov: Sergei Erickson MD 12/10/17 Doxycycline Hyclate (Doxycycline Hyclate) 100 Mg Cap 100 MG PO BID for Infection, #20 CAP 0 Refills Prov: Sergei Erickson MD 12/10/17 Disposition: DISCHARGE HOME Condition: Stable Mati Reese December 10, 2017 16:16
[2017-12-10 16:18] VITALS: RESP 26; O2SAT 94
[2017-12-10 16:45] LABS: AUTOMATED NEUTROPHIL # 12.5 TH/MM3 (1.8-7.7); BASOPHIL % 0.2 % (0.0-2.0); HEMATOCRIT 43.8 % (35.0-46.0); HEMOGLOBIN 14.7 GM/DL (11.6-15.3); LYMPH % 8.6 % (9.0-44.0); LYMPHOCYTE # 1.3 TH/MM3 (1.0-4.8); MEAN CORPUSCULAR HEMOGLOBIN 31.1 PG (27.0-34.0); MEAN CORPUSCULAR HGB CONC 33.4 % (32.0-36.0); MEAN PLATELET VOLUME 7.7 FL (7.0-11.0); MONOCYTE # 1.4 TH/MM3 (0-0.9); NEUT % 82.2 % (16.0-70.0); PLATELET COUNT 342 TH/MM3 (150-450); RED BLOOD COUNT 4.71 MIL/MM3 (4.00-5.30); RED CELL DISTRIBUTION WIDTH 12.9 % (11.6-17.2); WHITE BLOOD COUNT 15.2 TH/MM3 (4.0-11.0)
[2017-12-10] MEDS: RESP: ALBUTEROL 2.5 MG/IPRATROPIUM 0.5 MG NEB (SCH) INH (16:45)
[2017-12-10 16:55] LABS: BICARBONATE 27.2 MEQ/L (21.0-32.0); BLOOD UREA NITROGEN 14 MG/DL (7-18); CALCIUM 9.5 MG/DL (8.5-10.1); CHLORIDE 100 MEQ/L (98-107); CREATININE 0.94 MG/DL (0.50-1.00); GLOMERULAR FILTRATION RATE 59 ML/MIN (>89); GLUCOSE,RANDOM 133 MG/DL (74-106); MAGNESIUM 2.1 MG/DL (1.5-2.5); SODIUM (NA) 137 MEQ/L (136-145)
--- NOTE | 2017-12-10 16:58 | RADRPT ---
EXAM DATE: 12/10/2017 4:55 PM EDT AGE/SEX: 72 years / Female INDICATIONS: Short of breath. CLINICAL DATA: This is the patient's initial encounter. Patient reports that signs and symptoms have been present for 1 day and indicates a pain score of 0/10. MEDICAL/SURGICAL HISTORY: Chronic obstructive pulmonary disease. hypertension Coronary artery stent. kyphoplasty COMPARISON: [facility] [place], CHEST SINGLE AP, 11/18/2016. . FINDINGS: PA and lateral views of the chest demonstrate the lungs to be symmetrically aerated without evidence of mass, infiltrate or effusion. There is hyperaeration bilaterally with chronic interstitial changes . The cardiomediastinal contours are unremarkable. Osseous structures are intact. There is no evidenc e of previous kyphoplasty at T12. No significant changes compared to the prior study. CONCLUSION: 1. COPD with no focal or acute pulmonary infiltrates. 2. Stable exam. No significant change compared to 2017. Electronically signed by: Kyle Hatfield MD 12/10/2017 4:57 PM EDT
[2017-12-10 16:59] LABS: TROPONIN I LESS THAN 0.02 NG/ML (0.02-0.05)
[2017-12-10] MEDS ORDERED: PRED10PA PO (17:35)
[2017-12-10] MEDS ORDERED: DOXY100C PO (17:35)
[2017-12-10] MEDS ORDERED: DOXYCYCLINE HYCLATE 100 MG CAP PO ONE (17:45)
[2017-12-10] MEDS ORDERED: cefTRIAXone INJ 1,000 MG in SODIUM CHLORIDE 0.9% INJ 100 ML IV ONE (18:30)
[2017-12-10] MEDS ORDERED: AZITHROMYCIN INJ 500 MG in SODIUM CHLOR 0.9% 250 ML INJ 250 ML IV ONE (18:30)
[2017-12-10 19:21] VITALS: BP 130/60; PULSE 105; RESP 28; O2SAT 95
[2017-12-10 19:52] VITALS: BP 114/57; PULSE 104; RESP 20; O2SAT 96
[2017-12-10 20:27] VITALS: BP 126/67; PULSE 105; RESP 17; TEMP 98.6; O2SAT 96
--- NOTE | 2017-12-10 23:02 | HHI.HP ---
HPI Service [facility] [place] [facility] Primary Care Physician Katy Alcala MD Admission Diagnosis COPD exacerbation Chief Complaint: increasing SOB Travel History International Travel<30 Days: No Contact w/Intl Traveler <30 Da: No Traveled to Known Affected Are: No History of Present Illness 72-year-old female with history of COPD presents for evaluation of cough, sore throat and dyspnea and wheezing. Symptoms started 3 days ago. She reports that she had a prescription for prednisone and azithromycin from her previous visit with her primary care physician she began using this when symptoms started. Symptoms have persisted today which prompted evaluation. Cough is productive with yellow sputum. Symptoms are moderate, not alleviated with her at home Pro Air. She denies chest pain, abdominal pain, fevers or chills, nausea or vomiting. Patient was hypoxic in er and continued to be symptomatic despite treatment in ER will admit for further treatments and antibiotics. Review of Systems Respiratory: COMPLAINS OF: Cough, Shortness of breath Past Family Social History Past Medical History anxiety depression COPD,CAD stent hyperlipid htn GERD Past Surgical History Abdominal Surgery: Yes (AGE 11 APPENDECTOMY) Body Medical Devices: CARDIAC STENT Cardiac Surgery: Yes (HEART CATH INSERTION STENT; RT LOWER EXTREMITY FEMOROPOPLITEAL BYPASS) Coronary Stent: Yes (X1 CIRC 1999) Gynecologic Surgery: Yes (ISRA SALPINGO-OOPHORECTOMY) Hysterectomy: Yes (PARTIAL) Oral Surgery: Yes (SINUS SX) Other Surgery: Yes (fem-pop right 2001) Reported Medications Prednisone (21) 10 mg tab Dose Pack (Prednisone) 10 Mg Pack 10 Mg PO DIRECTED Doxycycline Hyclate 100 Mg Cap 100 Mg PO BID Reported Vitamin D (Cholecalciferol) 2,000 Unit Cap Atorvastatin (Atorvastatin Calcium) 40 Mg Tab 40 Mg PO HS Effexor (Venlafaxine HCl) 75 Mg Tab 150 Mg PO DAILY Omeprazole 20 Mg Tab 20 Mg PO DAILY Aspirin 81 Mg Chew 81 Mg CHEW D Allergies: Coded Allergies: Sulfa (Sulfonamide Antibiotics) (Verified Allergy, Severe, HIVES, 12/10/17) HIVES; THROAT SWELLING; SEVERE REACTION albuterol (Verified Allergy, Severe, SHAKES & HIGH BP, 12/10/17) SEVERE REACTION ciprofloxacin (Verified Allergy, Severe, 12/10/17) SHAKES ALL OVER; ELEVATED BLOOD PRESSURE fluticasone (Verified Allergy, Severe, 12/10/17) SHAKES ALL OVER; ELEVATES BLOOD PRESSURE; SEVERE REACTION fluticasone furoate (Verified Allergy, Severe, 12/10/17) SHAKES ALL OVER; ELEVATES BLOOD PRESSURE; SEVERE REACTION salmeterol (Verified Allergy, Severe, 12/10/17) SHAKES ALL OVER; ELEVATES BLOOD PRESSURE; SEVERE REACTION Social History former smoker Physical Exam Vital Signs Vital Signs Date Time Temp Pulse Resp B/P (MAP) Pulse Ox O2 Delivery O2 Flow Rate FiO2 12/10/17 20:27 98.6 105 17 126/67 (86) 96 12/10/17 20:16 12/10/17 19:52 104 20 114/57 (76) 96 Nasal Cannula 3.00 12/10/17 19:21 105 28 130/60 (83) 95 Nasal Cannula 3.00 12/10/17 16:19 90 Nasal Cannula 4.00 12/10/17 16:18 26 94 Nasal Cannula 4.00 12/10/17 16:00 98.1 116 36 137/80 (99) 92 Physical Exam GENERAL: This is a well-nourished, well-developed patient, in no apparent distress. SKIN: No rashes, ecchymoses or lesions. Cool and dry. HEAD: Atraumatic. Normocephalic. No temporal or scalp tenderness. EYES: Pupils equal round and reactive. Extraocular motions intact. No scleral icterus. No injection or drainage. ENT: Nose without bleeding, purulent drainage or septal hematoma. Throat without erythema, tonsillar hypertrophy or exudate. Uvula midline. Airway patent. NECK: Trachea midline. No JVD or lymphadenopathy. Supple, nontender, no meningeal signs. CARDIOVASCULAR: Regular rate and rhythm without murmurs, gallops, or rubs. RESPIRATORY: Decrase breath sounds with bilateral rhonchi GASTROINTESTINAL: Abdomen soft, non-tender, nondistended. No hepato-splenomegaly , or palpable masses. No guarding. MUSCULOSKELETAL: Extremities without clubbing, cyanosis, or edema. No joint tenderness, effusion, or edema noted. No calf tenderness. Negative Homans sign bilaterally. NEUROLOGICAL: Awake and alert. Cranial nerves II through XII intact. Motor and sensory grossly within normal limits. Five out of 5 muscle strength in all muscle groups. Normal speech. Laboratory Laboratory Tests Test 12/10/17 16:15 White Blood Count 15.2 Red Blood Count 4.71 Hemoglobin 14.7 Hematocrit 43.8 Mean Corpuscular Volume 93.0 Mean Corpuscular Hemoglobin 31.1 Mean Corpuscular Hemoglobin Concent 33.4 Red Cell Distribution Width 12.9 Platelet Count 342 Mean Platelet Volume 7.7 Neutrophils (%) (Auto) 82.2 Lymphocytes (%) (Auto) 8.6 Monocytes (%) (Auto) 9.0 Eosinophils (%) (Auto) 0.0 Basophils (%) (Auto) 0.2 Neutrophils # (Auto) 12.5 Lymphocytes # (Auto) 1.3 Monocytes # (Auto) 1.4 Eosinophils # (Auto) 0.0 Basophils # (Auto) 0.0 CBC Comment DIFF FINAL Differential Comment Blood Urea Nitrogen 14 Creatinine 0.94 Random Glucose 133 Calcium Level 9.5 Magnesium Level 2.1 Sodium Level 137 Potassium Level 4.0 Chloride Level 100 Carbon Dioxide Level 27.2 Anion Gap 10 Estimat Glomerular Filtration Rate 59 Total Creatine Kinase 58 Troponin I LESS THAN 0.02 Result Diagram: 12/10/17 1615 12/10/17 1615 Imaging Last 24 hours Impressions Chest X-Ray 12/10/17 1611 Signed Impressions: CONCLUSION: 1. COPD with no focal or acute pulmonary infiltrates. 2. Stable exam. No significant change compared to 2017. Course in er treated with solumedrol antibiotics duoneb Caprini VTE Risk Assessment Caprini VTE Risk Assessment: Mod/High Risk (score >= 2) Caprini Risk Assessment Model Point Value = 1 Point Value = 2 Point Value = 3 Point Value = 5 Age 41-60 Minor surgery BMI > 25 kg/m2 Swollen legs Varicose veins or History of unexplained or recurrent spontaneous Oral contraceptives or hormone replacement Sepsis (< 1 month) Serious lung disease, including pneumonia (< 1 month) Abnormal pulmonary function Acute myocardial infarction Congestive heart failure (< 1 month) History of inflammatory bowel disease Medical patient at bed rest Age 61-74 Arthroscopic surgery Major open surgery (> 45 min) Laparoscopic surgery (> 45 min) Malignancy Confined to bed (> 72 hours) Immobilizing plaster cast Central venous access Age >= 75 History of VTE Family history of VTE Factor V Leiden Prothrombin [id number] Lupus anticoagulant Anticardiolipin antibodies Elevated serum homocysteine Heparin-induced thrombocytopenia Other congenital or acquired thrombophilia Stroke (< 1 month) Elective arthroplasty Hip, pelvis, or leg fracture Acute spinal cord injury (< 1 month) Prophylaxis Regimen Total Risk Factor Score Risk Level Prophylaxis Regimen 0-1 Low Early ambulation 2 Moderate Order ONE of the following: *Sequential Compression Device (SCD) *Heparin 5000 units SQ BID 3-4 Higher Order ONE of the following medications: *Heparin 5000 units SQ TID *Enoxaparin/Lovenox 40 mg SQ daily (WT < 150 kg, CrCl > 30 mL/min) *Enoxaparin/Lovenox 30 mg SQ daily (WT < 150 kg, CrCl > 10-29 mL/min) *Enoxaparin/Lovenox 30 mg SQ BID (WT < 150 kg, CrCl > 30 mL/min) AND/OR *Sequential Compression Device (SCD) 5 or more Highest Order ONE of the following medications: *Heparin 5000 units SQ TID (Preferred with Epidurals) *Enoxaparin/Lovenox 40 mg SQ daily (WT < 150 kg, CrCl > 30 mL/min) *Enoxaparin/Lovenox 30 mg SQ daily (WT < 150 kg, CrCl > 10-29 mL/min) *Enoxaparin/Lovenox 30 mg SQ BID (WT < 150 kg, CrCl > 30 mL/min) AND *Sequential Compression Device (SCD) Assessment and Plan Problem List: (1) COPD exacerbation ICD Codes: J44.1 - Chronic obstructive pulmonary disease with (acute) exacerbation Status: Acute Plan: continue antibiotics nebulizer and steroids (2) Hypoxia ICD Codes: R09.02 - Hypoxemia Status: Acute Plan: did have hypoxia in er when standing will monitor sat and may need oxygen walk test Assessment and Plan further plan as case develops follow labs Code Status full Discussed Condition With patient Physician Certification 2 Midnight Certification Type: Admission for Inpatient Services Order for Inpatient Services The services are ordered in accordance with Medicare regulations or non- Medicare payer requirements, as applicable. In the case of services not specified as inpatient-only, they are appropriately provided as inpatient services in accordance with the 2-midnight benchmark. Estimated LOS (days): 2 2 days is the estimated time the patient will need to remain in the hospital, assuming treatment plan goals are met and no additional complications. Post-Hospital Plan: Not yet determined Bijan Sarkar MD December 10, 2017 23:02
[2017-12-10 23:22] VITALS: BP 120/73; PULSE 107; RESP 18; O2SAT 93
[2017-12-10] MEDS: methylPREDNISolone SOD SUCC 125 MG/2 ML VIAL IV PUSH SCH (23:30)
[2017-12-10] MEDS: ALPRAZolam 0.5 MG TAB PO PRN (23:30)
[2017-12-11] VITALS (7 sets, daily range): BP systolic 128–157; BP diastolic 65–86; PULSE 76–105; RESP 18; TEMP 96.1–98.7; O2SAT 91–96
[2017-12-11] MEDS ORDERED: RESP: ALBUTEROL 2.5 MG/IPRATROPIUM 0.5 MG NEB (SCH) NEB (08:00)
[2017-12-11 08:09] LABS: BASOPHIL % 0.1 % (0.0-2.0); HEMATOCRIT 39.1 % (35.0-46.0); HEMOGLOBIN 13.1 GM/DL (11.6-15.3); LYMPH % 10.2 % (9.0-44.0); LYMPHOCYTE # 1.1 TH/MM3 (1.0-4.8); MEAN CELL VOLUME 94.7 FL (80.0-100.0); MEAN CORPUSCULAR HEMOGLOBIN 31.8 PG (27.0-34.0); MEAN CORPUSCULAR HGB CONC 33.6 % (32.0-36.0); MEAN PLATELET VOLUME 7.6 FL (7.0-11.0); MONO % 7.6 % (0.0-8.0); MONOCYTE # 0.8 TH/MM3 (0-0.9); NEUT % 82.1 % (16.0-70.0); PLATELET COUNT 288 TH/MM3 (150-450); RED BLOOD COUNT 4.13 MIL/MM3 (4.00-5.30); RED CELL DISTRIBUTION WIDTH 12.8 % (11.6-17.2)
[2017-12-11 08:31] LABS: BICARBONATE 25.1 MEQ/L (21.0-32.0); CREATININE 0.71 MG/DL (0.50-1.00)
[2017-12-11] MEDS: methylPREDNISolone SOD SUCC 125 MG/2 ML VIAL IV PUSH SCH ×2 (08:38→18:39)
[2017-12-11] MEDS: VENLAFAXINE HCL XR 75 MG CAP PO SCH (08:39)
[2017-12-11] MEDS: ASPIRIN 81 MG CHEW TAB CHEW SCH (08:39)
[2017-12-11] MEDS: PANTOPRAZOLE SOD 20 MG DELAYED RELEASE TAB PO SCH (08:39)
[2017-12-11] MEDS: ALPRAZolam 0.5 MG TAB PO PRN (08:47)
--- NOTE | 2017-12-11 10:30 | HHI.PR ---
Subjective Remarks Patient appears anxious continues to have SOB with minimal exertion Objective Vitals Vital Signs Date Time Temp Pulse Resp B/P (MAP) Pulse Ox O2 Delivery O2 Flow Rate FiO2 12/11/17 08:27 96 Nasal Cannula 2.00 12/11/17 08:00 96.4 87 18 138/71 (93) 95 12/11/17 04:41 98.7 76 18 128/73 (91) 96 12/10/17 23:22 107 18 120/73 (89) 93 12/10/17 20:27 98.6 105 17 126/67 (86) 96 12/10/17 20:16 12/10/17 19:52 104 20 114/57 (76) 96 Nasal Cannula 3.00 12/10/17 19:21 105 28 130/60 (83) 95 Nasal Cannula 3.00 12/10/17 16:19 90 Nasal Cannula 4.00 12/10/17 16:18 26 94 Nasal Cannula 4.00 12/10/17 16:00 98.1 116 36 137/80 (99) 92 Result Diagram: 12/11/17 0709 12/11/17 0709 Other Results Laboratory Tests Test 12/10/17 16:15 12/11/17 07:09 White Blood Count 15.2 TH/MM3 11.0 TH/MM3 Red Blood Count 4.71 MIL/MM3 4.13 MIL/MM3 Hemoglobin 14.7 GM/DL 13.1 GM/DL Hematocrit 43.8 % 39.1 % Mean Corpuscular Volume 93.0 FL 94.7 FL Mean Corpuscular Hemoglobin 31.1 PG 31.8 PG Mean Corpuscular Hemoglobin Concent 33.4 % 33.6 % Red Cell Distribution Width 12.9 % 12.8 % Platelet Count 342 TH/MM3 288 TH/MM3 Mean Platelet Volume 7.7 FL 7.6 FL Neutrophils (%) (Auto) 82.2 % 82.1 % Lymphocytes (%) (Auto) 8.6 % 10.2 % Monocytes (%) (Auto) 9.0 % 7.6 % Eosinophils (%) (Auto) 0.0 % 0.0 % Basophils (%) (Auto) 0.2 % 0.1 % Neutrophils # (Auto) 12.5 TH/MM3 9.0 TH/MM3 Lymphocytes # (Auto) 1.3 TH/MM3 1.1 TH/MM3 Monocytes # (Auto) 1.4 TH/MM3 0.8 TH/MM3 Eosinophils # (Auto) 0.0 TH/MM3 0.0 TH/MM3 Basophils # (Auto) 0.0 TH/MM3 0.0 TH/MM3 CBC Comment DIFF FINAL DIFF FINAL Differential Comment Blood Urea Nitrogen 14 MG/DL 14 MG/DL Creatinine 0.94 MG/DL 0.71 MG/DL Random Glucose 133 MG/DL 128 MG/DL Calcium Level 9.5 MG/DL 9.0 MG/DL Magnesium Level 2.1 MG/DL Sodium Level 137 MEQ/L 141 MEQ/L Potassium Level 4.0 MEQ/L 4.0 MEQ/L Chloride Level 100 MEQ/L 106 MEQ/L Carbon Dioxide Level 27.2 MEQ/L 25.1 MEQ/L Anion Gap 10 MEQ/L 10 MEQ/L Estimat Glomerular Filtration Rate 59 ML/MIN 81 ML/MIN Total Creatine Kinase 58 U/L Troponin I LESS THAN 0.02 NG/ML Imaging Last 24 hours Impressions Chest X-Ray 12/10/17 1611 Signed Impressions: CONCLUSION: 1. COPD with no focal or acute pulmonary infiltrates. 2. Stable exam. No significant change compared to 2017. Objective Remarks GENERAL: This is a well-nourished, well-developed patient, appears anxious CARDIOVASCULAR: Regular rate and rhythm RESPIRATORY: poor air movement with inspiratory and expiratory wheezing GASTROINTESTINAL: Abdomen soft, non-tender, nondistended. Normal active bowel sounds MUSCULOSKELETAL: Extremities without clubbing, cyanosis, or edema. NEURO: Alert & Oriented x4 to person, place, time, situation. Moves all ext x4 A/P Problem List: (1) COPD exacerbation ICD Codes: J44.1 - Chronic obstructive pulmonary disease with (acute) exacerbation Status: Acute Plan: - 72-year-old female with history of COPD presents for evaluation of cough, sore throat and dyspnea and wheezing. Symptoms started 3 days ago. She reports that she had a prescription for prednisone and azithromycin from her previous visit with her primary care physician she began using this when symptoms started. - Patient is receiving azithromycin and Rocephin will continue - Continue duonebs Q6H while awake and as needed increase to Q4H - On Solu medrol 60 mg IV Q8H, increase to solu medrol 60 mg IV Q6H - CXR reviewed COPD with no focal or acute pulmonary infiltrate. Stable exam. No significant change compared to 2017 - Supplemental oxygen as needed to maintain saturation above 92% - COPD exacerbation is severe will consult pulmonology (2) Hypoxia ICD Codes: R09.02 - Hypoxemia Status: Acute Plan: - Emergency department initially plan to discharge patient but when she stood up oxygen saturation reduced to 89% and patient was symptomatic with shortness of breath - may need oxygen walk test (3) Anxiety ICD Codes: F41.9 - Anxiety disorder, unspecified Plan: Start scheduled Ativan 0.5 mg PO Q8H, hold for sedation Assessment and Plan Patient examined. Assessment and plan formulated with Padmini eVrma PA-C. I agree with the above. Case d/w pt's Legal Referee, Dr. Garry Owens. Pt has severe PVD and may require LE bypass surgery. Pt undergoing w/u with Dr. Castro. Will obtain CTA with runoff once pulmonary status is more stable. On Physical exam, pt is quite anxious. Poor air movement. B/L inspiratory and expiratory wheezing. Continue IV solumedrol and scheduled/prn duonebs start advair Consult pulmonary medicine start scheduled ativan. Padmini Verma December 11, 2017 10:30 [place] Johnson DO December 11, 2017 15:11
[2017-12-11] MEDS ORDERED: RESP: ALBUTEROL 2.5 MG/IPRATROPIUM 0.5 MG NEB (PRN) NEB (12:15)
[2017-12-11] MEDS ORDERED: LORazepam 0.5 MG TAB PO SCH (14:00)
[2017-12-11] MEDS: RESP: ALBUTEROL 2.5 MG/IPRATROPIUM 0.5 MG NEB (SCH) NEB ×3 (14:25→19:58)
[2017-12-11] MEDS: LORazepam 0.5 MG TAB PO SCH ×2 (14:45→20:32)
[2017-12-11] MEDS: ACETAMINOPHEN 500 MG CPLT PO PRN (18:39)
--- NOTE | 2017-12-11 19:58 | MB ---
cc: Guillermo Li MD, V J MD DATE: 12/11/2017 REASON FOR CONSULTATION: COPD and respiratory distress. HISTORY OF PRESENT ILLNESS: This is a 72-year-old white female with a known past history of COPD and persistent wheezing who has been experiencing shortness of breath, wheezing, and cough for the past 3-4 days. The patient initially was started on a Zithromax Z-Víctor and a prednisone Dosepak, but she failed to improve and thus came to the hospital for evaluation. She was coughing up yellowish-green sputum. She denied fevers or chills. She has been using the albuterol inhaler, but without much benefit. She also has an Advair inhaler. The patient apparently has severe peripheral vascular disease and recently went for a femoral angiogram and was due to have a stent put in, but this had to be discontinued due to technical problems. She is now rescheduled to have further surgical evaluation of the lower extremity arteries. PAST MEDICAL HISTORY: Significant for recurrent exacerbation of bronchitis and COPD, history of coronary artery disease with stenting, history of peripheral vascular disease and stenting and angioplasties, history for gastroesophageal reflux and a prior history of asthma and pneumonia, hyperlipidemia, history for sinus surgery, history of femoropopliteal bypass in the right side, history of bilateral salpingo-oophorectomy and a history for cardiac stenting and an appendectomy remotely. HABITS: The patient smoked 1 pack per day for over 50 years and quit 6 years ago. No significant alcohol intake. MEDICATIONS: 1. Doxycycline 100 mg b.i.d. 2. Prednisone 10 mg daily 3. Advair Diskus 250/50 one puff b.i.d. 4. Effexor 150 mg a day. 5. Atorvastatin 40 mg at bedtime. 6. One aspirin daily. ALLERGIES: SULFA, CIPRO, AND ALBUTEROL, but she is able to take the DuoNeb solution. FAMILY HISTORY: Father of heart disease and bleeding in his chest. REVIEW OF SYSTEMS: The patient has cramping in the legs and vascular problems. She has cough, wheezing, orthopnea. She has anxiety and depression. She has epigastric distress and reflux. She denies any nausea, vomiting or GI bleed. PHYSICAL EXAMINATION: GENERAL: This is an averagely built, elderly lady whose face was plethoric. She has no peripheral edema. No lymphadenopathy. VITAL SIGNS: Her blood pressure 130/70, pulse is 90, respirations are 22, temperature 98.2. HEENT: Head is normocephalic. Pupils are reactive. Tongue is moist. Throat was injected. Nasal mucosa edematous. NECK: Supple, no bruits or thyroid enlargement or lymphadenopathy. CHEST: Distant breath sounds with expiratory wheezes throughout both lung walker, prolonged expirations. HEART: The heart sounds are irregular S1 and S2 with no murmur. No S3. ABDOMEN: Soft, protuberant without masses. No organomegaly or tenderness. Bowel sounds are active. EXTREMITIES: No lesions, no edema. Peripheral pulses are not well felt. There is no calf tenderness on either side. NEUROLOGIC: Reflexes are 1+ with no gross motor deficits. Cranial nerves grossly intact. SKIN: No lesions. ASSESSMENT: 1. Chronic obstructive pulmonary disease with acute exacerbation. 2. Bronchospasm and asthmatic bronchitis. 3. Severe peripheral vascular disease. 4. Hypertension. 5. Anxiety. PLAN: The patient has been placed on O2 at 2 liters nasal cannula. Blood gas studies to be done. Nebulized DuoNeb solution added every 4 hours. Continue with antibiotic coverage including Rocephin 1 gram IV and Zithromax 500 mg IV daily. We will also place her on Breo Ellipta 100/25 mcg 1 puff daily and a pulmonary function study to be done in the a.m. Once her clinical condition is stabilized further, lower extremity vascular procedures could be performed. Thank you for this consultation. Guillermo Li MD VJD/ , 07:13 PM , 07:56 PM
[2017-12-11] MEDS: ATORVASTATIN 40 MG TAB PO SCH (20:32)
[2017-12-11] MEDS: cefTRIAXone INJ 1,000 MG in SODIUM CHLORIDE 0.9% INJ 100 ML IV SCH (20:33)
[2017-12-11] MEDS: AZITHROMYCIN INJ 500 MG in SODIUM CHLOR 0.9% 250 ML INJ 250 ML IV SCH (20:35)
[2017-12-12] MEDS: methylPREDNISolone SOD SUCC 125 MG/2 ML VIAL IV PUSH SCH ×4 (01:22→18:51)
[2017-12-12] MEDS: RESP: ALBUTEROL 2.5 MG/IPRATROPIUM 0.5 MG NEB (SCH) NEB ×5 (01:24→22:00)
[2017-12-12 04:42] VITALS: BP 164/80; PULSE 97; RESP 16; TEMP 98.6; O2SAT 90
[2017-12-12] MEDS: LORazepam 0.5 MG TAB PO SCH ×3 (05:40→22:11)
[2017-12-12 08:02] VITALS: BP 129/84; PULSE 102; RESP 18; TEMP 97.9; O2SAT 98
--- NOTE | 2017-12-12 08:25 | EKG ---
Date Performed: 12/10/2017 Time Performed: 16:13:59 PTAGE: 72 years EKG: SINUS TACHYCARDIA WITH OCCASIONAL VENTRICULAR PREMATURE COMPLEXES ABNORMAL RHYTHM ECG INTER PRETATION BASED ON A DEFAULT AGE OF 40 YEARS NO PREVIOUS TRACING DOCTOR: Cassidy Leos Interpretating Date/Time 12/12/2017 08:17:09
[2017-12-12] MEDS: PANTOPRAZOLE SOD 20 MG DELAYED RELEASE TAB PO SCH (08:47)
[2017-12-12] MEDS: ASPIRIN 81 MG CHEW TAB CHEW SCH (08:47)
[2017-12-12] MEDS: FLUTICASONE 100 MCG/VILANTEROL 25 MCG INHALER INH SCH (08:48)
[2017-12-12] MEDS: VENLAFAXINE HCL XR 75 MG CAP PO SCH (08:48)
[2017-12-12 08:53] VITALS: O2SAT 89
--- NOTE | 2017-12-12 10:51 | ECHRPT ---
Indication: coronary atherosclerosis CONCLUSIONS Normal left ventricular size. Wall thickness is normal. The left ventricular systolic function is normal with an estimated ejection fraction in the range of 60-65%. Mitral annular calcification is present. Trace mitral valve regurgitation. Aortic valve sclerosis is present. The pulmonary valve is not well visualized. BP: / HR: Rhythm: MEASUREMENTS (Male / Female) Normal Values Technical Quality: 2D ECHO LV Diastolic Diameter PLAX 4.0 cm 4.2 - 5.9 / 3.9 - 5.3 cm LV Systolic Diameter PLAX 2.8 cm IVS Diastolic Thickness 0.9 cm 0.6 - 1.0 / 0.6 - 0.9 cm LVPW Diastolic Thickness 0.7 cm 0.6 - 1.0 / 0.6 - 0.9 cm LV Relative Wall Thickness 0.4 RV Internal Dim ED PLAX 2.0 cm DOPPLER Mitral E Point Velocity 96.0 cm/s Mitral A Point Velocity 116.0 cm/s Mitral E to A Ratio 0.8 TR Peak Velocity 147.0 cm/s TR Peak Gradient 8.6 mmHg FINDINGS LEFT VENTRICLE Normal left ventricular size. Wall thickness is normal. The left ventricular systolic function is normal with an estimated ejection fraction in the range of 60-65%. RIGHT VENTRICLE Normal right ventricular size and systolic function. LEFT ATRIUM The left atrial size is normal. RIGHT ATRIUM The right atrial size is normal. ATRIAL SEPTUM Normal atrial septal thickness without atrial level shunting by limited color doppler interrogation. AORTA The aortic root and proximal ascending aorta are normal in size on limited imaging. MITRAL VALVE Mitral annular calcification is present. Trace mitral valve regurgitation. AORTIC VALVE Aortic valve sclerosis is present. TRICUSPID VALVE Structurally normal tricuspid valve. No tricuspid valve stenosis or regurgitation. PULMONARY VALVE The pulmonary valve is not well visualized. VESSELS The inferior vena cava is normal in size. PERICARDIUM No pericardial effusion. Garry Owens MD, FACC (Electronically Signed) Final Date:12 Dec 2017 10:50
--- NOTE | 2017-12-12 11:45 | HHI.PR ---
Subjective Remarks Patient noted to be tremulous with anxious continues to have SOB with minimal exertion Objective Vitals Vital Signs Date Time Temp Pulse Resp B/P (MAP) Pulse Ox O2 Delivery O2 Flow Rate FiO2 12/12/17 08:53 89 21 12/12/17 08:02 97.9 102 18 129/84 (99) 98 12/12/17 04:42 98.6 97 16 164/80 (108) 90 12/11/17 23:25 98.5 100 18 138/86 (103) 91 12/11/17 20:00 18 12/11/17 19:55 98.6 105 18 131/74 (93) 93 12/11/17 16:00 96.1 103 18 157/65 (95) 92 12/11/17 12:00 96.6 99 18 144/74 (97) 93 Result Diagram: 12/11/17 0709 12/11/17 0709 Other Results Laboratory Tests Test 12/10/17 16:15 12/11/17 07:09 12/11/17 19:56 White Blood Count 15.2 TH/MM3 11.0 TH/MM3 Red Blood Count 4.71 MIL/MM3 4.13 MIL/MM3 Hemoglobin 14.7 GM/DL 13.1 GM/DL Hematocrit 43.8 % 39.1 % Mean Corpuscular Volume 93.0 FL 94.7 FL Mean Corpuscular Hemoglobin 31.1 PG 31.8 PG Mean Corpuscular Hemoglobin Concent 33.4 % 33.6 % Red Cell Distribution Width 12.9 % 12.8 % Platelet Count 342 TH/MM3 288 TH/MM3 Mean Platelet Volume 7.7 FL 7.6 FL Neutrophils (%) (Auto) 82.2 % 82.1 % Lymphocytes (%) (Auto) 8.6 % 10.2 % Monocytes (%) (Auto) 9.0 % 7.6 % Eosinophils (%) (Auto) 0.0 % 0.0 % Basophils (%) (Auto) 0.2 % 0.1 % Neutrophils # (Auto) 12.5 TH/MM3 9.0 TH/MM3 Lymphocytes # (Auto) 1.3 TH/MM3 1.1 TH/MM3 Monocytes # (Auto) 1.4 TH/MM3 0.8 TH/MM3 Eosinophils # (Auto) 0.0 TH/MM3 0.0 TH/MM3 Basophils # (Auto) 0.0 TH/MM3 0.0 TH/MM3 CBC Comment DIFF FINAL DIFF FINAL Differential Comment Blood Urea Nitrogen 14 MG/DL 14 MG/DL Creatinine 0.94 MG/DL 0.71 MG/DL Random Glucose 133 MG/DL 128 MG/DL Calcium Level 9.5 MG/DL 9.0 MG/DL Magnesium Level 2.1 MG/DL Sodium Level 137 MEQ/L 141 MEQ/L Potassium Level 4.0 MEQ/L 4.0 MEQ/L Chloride Level 100 MEQ/L 106 MEQ/L Carbon Dioxide Level 27.2 MEQ/L 25.1 MEQ/L Anion Gap 10 MEQ/L 10 MEQ/L Estimat Glomerular Filtration Rate 59 ML/MIN 81 ML/MIN Total Creatine Kinase 58 U/L Troponin I LESS THAN 0.02 NG/ML Blood Gas Puncture Site LT RADIAL Blood Gas Patient Temperature 98.6 Blood Gas HCO3 25 mmol/L Blood Gas Base Excess 0.7 mmol/L Blood Gas Oxygen Saturation 92 % Arterial Blood pH 7.43 Arterial Blood Partial Pressure CO2 38 mmHg Arterial Blood Partial Pressure O2 63 mmHG Arterial Blood Oxygen Content 16.4 Vol % Arterial Blood Carboxyhemoglobin 1.0 % Arterial Blood Methemoglobin 0.8 % Blood Gas Hemoglobin 12.8 G/DL Oxygen Delivery Device NASAL CANNULA Blood Gas Liter Flow 2 L/M Imaging Last 24 hours Impressions Chest X-Ray 12/10/17 1611 Signed Impressions: CONCLUSION: 1. COPD with no focal or acute pulmonary infiltrates. 2. Stable exam. No significant change compared to 2017. Objective Remarks GENERAL: This is a well-nourished, well-developed patient, appears anxious CARDIOVASCULAR: Regular rate and rhythm RESPIRATORY: end expiratory wheezing GASTROINTESTINAL: Abdomen soft, non-tender, nondistended. Normal active bowel sounds MUSCULOSKELETAL: Extremities without clubbing, cyanosis, or edema. NEURO: Alert & Oriented x4 to person, place, time, situation. Moves all ext x4 A/P Problem List: (1) COPD exacerbation ICD Codes: J44.1 - Chronic obstructive pulmonary disease with (acute) exacerbation Status: Acute Plan: - 72-year-old female with history of COPD presents for evaluation of cough, sore throat and dyspnea and wheezing. Symptoms started 3 days ago. She reports that she had a prescription for prednisone and azithromycin from her previous visit with her primary care physician she began using this when symptoms started. - Patient is receiving azithromycin and Rocephin will continue - Continue duonebs Q6H and as needed - Continue solu medrol 60 mg IV Q6H - CXR reviewed COPD with no focal or acute pulmonary infiltrate. Stable exam. No significant change compared to 2017 - Supplemental oxygen as needed to maintain saturation above 92% - Consult pulmonology, appreciate input - Continue Miriam Del Realta - echocardiogram: Normal left ventricular size. Wall thickness is normal. The left ventricular systolic function is normal with an estimated ejection fraction in the range of 60-65%. Mitral annular calcification is present. Trace mitral valve regurgitation. Aortic valve sclerosis is present. The pulmonary valve is not well visualized. (2) Hypoxia ICD Codes: R09.02 - Hypoxemia Status: Acute Plan: - Emergency department initially plan to discharge patient but when she stood up oxygen saturation reduced to 89% and patient was symptomatic with shortness of breath - may need oxygen walk test (3) Anxiety ICD Codes: F41.9 - Anxiety disorder, unspecified Plan: increased Ativan 1 mg PO Q8H, hold for sedation Assessment and Plan Patient examined. Assessment and plan formulated with Padmini Verma PA-C. I agree with the above. Padmini Verma December 12, 2017 11:45 London Johnson DO December 14, 2017 23:35
[2017-12-12] MEDS ORDERED: RESP: ALBUTEROL 2.5 MG/IPRATROPIUM 0.5 MG NEB (SCH) NEB (12:00)
--- NOTE | 2017-12-12 12:37 | HHI.PR ---
Subjective Remarks Patient continues to have Objective Vitals Vital Signs Date Time Temp Pulse Resp B/P (MAP) Pulse Ox O2 Delivery O2 Flow Rate FiO2 12/12/17 08:53 89 21 12/12/17 08:02 97.9 102 18 129/84 (99) 98 12/12/17 04:42 98.6 97 16 164/80 (108) 90 12/11/17 23:25 98.5 100 18 138/86 (103) 91 12/11/17 20:00 18 12/11/17 19:55 98.6 105 18 131/74 (93) 93 12/11/17 16:00 96.1 103 18 157/65 (95) 92 Result Diagram: 12/11/17 0709 12/11/17 0709 Imaging Last 24 hours Impressions Chest X-Ray 12/10/17 1611 Signed Impressions: CONCLUSION: 1. COPD with no focal or acute pulmonary infiltrates. 2. Stable exam. No significant change compared to 2017. Objective Remarks GENERAL: This is a well-nourished, well-developed patient, appears anxious CARDIOVASCULAR: Regular rate and rhythm RESPIRATORY: poor air movement with inspiratory and expiratory wheezing GASTROINTESTINAL: Abdomen soft, non-tender, nondistended. Normal active bowel sounds MUSCULOSKELETAL: Extremities without clubbing, cyanosis, or edema. NEURO: Alert & Oriented x4 to person, place, time, situation. Moves all ext x4 A/P Problem List: (1) COPD exacerbation ICD Codes: J44.1 - Chronic obstructive pulmonary disease with (acute) exacerbation Status: Acute Plan: - 72-year-old female with history of COPD presents for evaluation of cough, sore throat and dyspnea and wheezing. Symptoms started 3 days ago. She reports that she had a prescription for prednisone and azithromycin from her previous visit with her primary care physician she began using this when symptoms started. - Patient is receiving azithromycin and Rocephin will continue - Continue duonebs Q6H while awake and as needed increase to Q4H - On Solu medrol 60 mg IV Q8H, increase to solu medrol 60 mg IV Q6H - CXR reviewed COPD with no focal or acute pulmonary infiltrate. Stable exam. No significant change compared to 2017 - Supplemental oxygen as needed to maintain saturation above 92% - Consult pulmonology (2) Hypoxia ICD Codes: R09.02 - Hypoxemia Status: Acute Plan: - Emergency department initially plan to discharge patient but when she stood up oxygen saturation reduced to 89% and patient was symptomatic with shortness of breath - may need oxygen walk test (3) Anxiety ICD Codes: F41.9 - Anxiety disorder, unspecified Plan: Start scheduled Ativan 0.5 mg PO Q8H, hold for sedation Assessment and Plan Normal left ventricular size. Wall thickness is normal. The left ventricular systolic function is normal with an estimated ejection fraction in the range of 60-65%. Mitral annular calcification is present. Trace mitral valve regurgitation. Aortic valve sclerosis is present. The pulmonary valve is not well visualized. Padmini Verma December 12, 2017 12:37
[2017-12-12 16:39] VITALS: BP 128/60; PULSE 72; RESP 20; TEMP 98.2; O2SAT 98
--- NOTE | 2017-12-12 19:27 | HHI.PR ---
Subjective Remarks Still SOB and has wheezing. No fever. C/O Chest tightness. Objective Vital Signs Date Time Temp Pulse Resp B/P (MAP) Pulse Ox O2 Delivery O2 Flow Rate FiO2 12/12/17 16:39 98.2 72 20 128/60 (82) 98 12/12/17 08:53 89 21 12/12/17 08:02 97.9 102 18 129/84 (99) 98 12/12/17 04:42 98.6 97 16 164/80 (108) 90 12/11/17 23:25 98.5 100 18 138/86 (103) 91 12/11/17 20:00 18 12/11/17 19:55 98.6 105 18 131/74 (93) 93 I/O 12/11/17 12/11/17 12/11/17 12/12/17 12/12/17 12/12/17 07:00 15:00 23:00 07:00 15:00 23:00 Intake Total 480 ml 720 ml 300 ml Balance 480 ml 720 ml 300 ml Intake Oral 480 ml 720 ml IV Total 300 ml # Voids 2 3 Result Diagram: 12/11/17 0709 12/11/17 0709 Objective Remarks GENERAL: This is an averagely built, elderly lady whose face was plethoric. She has no peripheral edema. No lymphadenopathy. HEENT: Head is normocephalic. Pupils are reactive. Tongue is moist. Throat was injected. Nasal mucosa edematous. NECK: Supple, no bruits or thyroid enlargement or lymphadenopathy. CHEST: Distant breath sounds with expiratory wheezes throughout both lung walker, prolonged expirations. HEART: The heart sounds are irregular S1 and S2 with no murmur. No S3. ABDOMEN: Soft, protuberant without masses. No organomegaly or tenderness. Bowel sounds are active. EXTREMITIES: No lesions, no edema. Peripheral pulses are not well felt. There is no calf tenderness on either side. NEUROLOGIC: Reflexes are 1+ with no gross motor deficits. Cranial nerves grossly intact. SKIN: No lesions. Assessment and Plan Assessment and Plan ASSESSMENT: 1. Chronic obstructive pulmonary disease with acute exacerbation. 2. Bronchospasm and asthmatic bronchitis. 3. Severe peripheral vascular disease. 4. Hypertension. 5. Anxiety. Plan : 1. Cont Nebs q4h , Duoneb 2. Continue antibiotics, Rocephin 3. O2 at 2 L. 4. Solumedrol 60 mg IV Q6H 5. Chest XRay in am 6. Continue Breo 100/25 mcg , 1 puff daily Guillermo Li MD December 12, 2017 19:27
[2017-12-12] MEDS: ATORVASTATIN 40 MG TAB PO SCH (20:46)
[2017-12-12] MEDS: cefTRIAXone INJ 1,000 MG in SODIUM CHLORIDE 0.9% INJ 100 ML IV SCH (20:54)
[2017-12-12] MEDS: ACETAMINOPHEN 500 MG CPLT PO PRN (20:55)
[2017-12-12 21:00] VITALS: BP 154/79; PULSE 107; RESP 28; TEMP 98.8; O2SAT 92
[2017-12-12] MEDS: AZITHROMYCIN INJ 500 MG in SODIUM CHLOR 0.9% 250 ML INJ 250 ML IV SCH ×2 (22:00→22:07)
[2017-12-12 23:25] VITALS: BP 154/97; PULSE 100; RESP 24; TEMP 98.6; O2SAT 93
[2017-12-13] VITALS (8 sets, daily range): BP systolic 133–165; BP diastolic 74–99; PULSE 92–109; RESP 16–24; TEMP 96.8–98.5; O2SAT 92–98
[2017-12-13] MEDS: methylPREDNISolone SOD SUCC 125 MG/2 ML VIAL IV PUSH SCH ×4 (00:45→20:37)
[2017-12-13] MEDS: RESP: ALBUTEROL 2.5 MG/IPRATROPIUM 0.5 MG NEB (SCH) NEB ×4 (03:13→21:20)
[2017-12-13] MEDS: LORazepam 0.5 MG TAB PO SCH ×3 (05:40→22:02)
--- NOTE | 2017-12-13 05:42 | RADRPT ---
EXAM DATE: 12/13/2017 5:37 AM EDT AGE/SEX: 72 years / Female INDICATIONS: Pneumonia and short of breath. CLINICAL DATA: This is the patient's subsequent encounter. Patient reports that signs and symptoms h ave been present for 3 days and indicates a pain score of 0/10. MEDICAL/SURGICAL HISTORY: . Chronic obstructive pulmonary disease. hypertension Appendectomy. Coronary artery stent. kyphoplasty COMPARISON: [facility] [place], CHEST SINGLE AP, 10/27/2017. . FINDINGS: A single AP view of the chest demonstrates the lungs to be symmetrically aerated without evidence of mass, infiltrate or effusion. The cardiomediastinal contours are unremarkable. Osseous structures a re intact. CONCLUSION: No evidence of acute cardiopulmonary disease. Electronically signed by: Jared oHrner MD 12/13/2017 5:40 AM EDT
[2017-12-13] MEDS: PANTOPRAZOLE SOD 20 MG DELAYED RELEASE TAB PO SCH (10:21)
[2017-12-13] MEDS: ASPIRIN 81 MG CHEW TAB CHEW SCH (10:21)
[2017-12-13] MEDS: VENLAFAXINE HCL XR 75 MG CAP PO SCH (10:21)
[2017-12-13] MEDS: FLUTICASONE 100 MCG/VILANTEROL 25 MCG INHALER INH SCH (10:21)
--- NOTE | 2017-12-13 15:09 | HHI.PR ---
Subjective Remarks Less SOB and wheezing. No fever. On Nebs q6h. C/O Chest tightness. Objective Vital Signs Date Time Temp Pulse Resp B/P (MAP) Pulse Ox O2 Delivery O2 Flow Rate FiO2 12/13/17 12:48 98.3 105 20 149/74 (99) 94 12/13/17 08:46 96.8 92 16 133/90 (104) 97 12/13/17 08:34 98 Nasal Cannula 1.50 12/13/17 03:53 97.3 99 24 150/79 (102) 93 12/13/17 03:14 92 Nasal Cannula 3.00 12/12/17 23:25 98.6 100 24 154/97 (116) 93 12/12/17 21:00 98.8 107 28 154/79 (104) 92 12/12/17 16:39 98.2 72 20 128/60 (82) 98 I/O 12/12/17 12/12/17 12/12/17 12/13/17 12/13/17 12/13/17 07:00 15:00 23:00 07:00 15:00 23:00 Intake Total 300 ml Balance 300 ml IV Total 300 ml Result Diagram: 12/11/1709 12/11/17 0709 Objective Remarks GENERAL: This is an averagely built, elderly lady whose face was plethoric. She has no edema. No lymphadenopathy. HEENT: Head is normocephalic. Pupils are reactive. Tongue is moist. Throat was injected. Nasal mucosa edematous. NECK: Supple, no bruits or thyroid enlargement or lymphadenopathy. CHEST: Distant breath sounds with expiratory wheezes over both lung walker, prolonged expirations. HEART: The heart sounds are irregular S1 and S2 with no murmur. No S3. ABDOMEN: Soft, protuberant without masses. No organomegaly or tenderness. Bowel sounds are active. EXTREMITIES: No lesions, no edema. Peripheral pulses are not well felt. There is no calf tenderness on either side. NEUROLOGIC: Reflexes are 1+ with no gross motor deficits. Cranial nerves grossly intact. SKIN: No lesions. Assessment and Plan Assessment and Plan ASSESSMENT: 1. Chronic obstructive pulmonary disease with acute exacerbation. 2. Bronchospasm and asthmatic bronchitis. 3. Severe peripheral vascular disease. 4. Hypertension. 5. Anxiety. Plan : 1. Cont Nebs q6h , Duoneb 2. Continue antibiotics, Rocephin 3. O2 at 2 L. 4. Solumedrol 40 mg IV Q6H 5. CBC,BMP. 6. Continue Breo 100/25 mcg , 1 puff daily. 7. PFT friday Guillermo Li MD December 13, 2017 15:09
--- NOTE | 2017-12-13 16:28 | HHI.PR ---
Subjective Remarks Pt remains anxious Objective Vitals Vital Signs Date Time Temp Pulse Resp B/P (MAP) Pulse Ox O2 Delivery O2 Flow Rate FiO2 12/13/17 15:58 98.5 95 20 165/99 (121) 96 12/13/17 12:48 98.3 105 20 149/74 (99) 94 12/13/17 08:46 96.8 92 16 133/90 (104) 97 12/13/17 08:34 98 Nasal Cannula 1.50 12/13/17 03:53 97.3 99 24 150/79 (102) 93 12/13/17 03:14 92 Nasal Cannula 3.00 12/12/17 23:25 98.6 100 24 154/97 (116) 93 12/12/17 21:00 98.8 107 28 154/79 (104) 92 12/12/17 16:39 98.2 72 20 128/60 (82) 98 Result Diagram: 12/11/17 0709 12/11/17 0709 Imaging Last 24 hours Impressions Chest X-Ray 12/10/17 1611 Signed Impressions: CONCLUSION: 1. COPD with no focal or acute pulmonary infiltrates. 2. Stable exam. No significant change compared to 2017. Objective Remarks GENERAL: This is a well-nourished, well-developed patient, appears anxious CARDIOVASCULAR: Regular rate and rhythm RESPIRATORY: end expiratory wheezing GASTROINTESTINAL: Abdomen soft, non-tender, nondistended. Normal active bowel sounds MUSCULOSKELETAL: Extremities without clubbing, cyanosis, or edema. NEURO: Alert & Oriented x4 to person, place, time, situation. Moves all ext x4 A/P Problem List: (1) COPD exacerbation ICD Codes: J44.1 - Chronic obstructive pulmonary disease with (acute) exacerbation Status: Acute Plan: - 72-year-old female with history of COPD presents for evaluation of cough, sore throat and dyspnea and wheezing. Symptoms started 3 days ago. She reports that she had a prescription for prednisone and azithromycin from her previous visit with her primary care physician she began using this when symptoms started. - Patient is receiving azithromycin and Rocephin will continue - Continue duonebs Q6H and as needed - Continue solu medrol 60 mg IV Q6H - CXR reviewed COPD with no focal or acute pulmonary infiltrate. Stable exam. No significant change compared to 2017 - Supplemental oxygen as needed to maintain saturation above 92% - Consult pulmonology, appreciate input - Continue Breo Ellipkevan - echocardiogram: Normal left ventricular size. Wall thickness is normal. The left ventricular systolic function is normal with an estimated ejection fraction in the range of 60-65%. Mitral annular calcification is present. Trace mitral valve regurgitation. Aortic valve sclerosis is present. The pulmonary valve is not well visualized. (2) Hypoxia ICD Codes: R09.02 - Hypoxemia Status: Acute Plan: - Emergency department initially plan to discharge patient but when she stood up oxygen saturation reduced to 89% and patient was symptomatic with shortness of breath - may need oxygen walk test (3) Anxiety ICD Codes: F41.9 - Anxiety disorder, unspecified Plan: increased Ativan 1 mg PO Q8H, hold for sedation Assessment and Plan London Johnson DO December 13, 2017 16:28
[2017-12-13] MEDS ORDERED: ALBUTEROL SULFATE 90 MCG/ACT HFA 8 GM INHALER INH PRN (17:00)
[2017-12-13] MEDS: ACETAMINOPHEN 500 MG CPLT PO PRN (17:46)
[2017-12-13] MEDS: ATORVASTATIN 40 MG TAB PO SCH (20:35)
[2017-12-13] MEDS: cefTRIAXone INJ 1,000 MG in SODIUM CHLORIDE 0.9% INJ 100 ML IV SCH (20:38)
[2017-12-14] VITALS (8 sets, daily range): BP systolic 135–182; BP diastolic 79–103; PULSE 94–107; RESP 17–23; TEMP 97.5–98; O2SAT 88–98
[2017-12-14] MEDS ORDERED: cloNIDine HCL 0.1 MG TAB PO PRN (01:15)
[2017-12-14] MEDS: RESP: ALBUTEROL 2.5 MG/IPRATROPIUM 0.5 MG NEB (SCH) NEB ×4 (03:45→21:43)
[2017-12-14] MEDS: LORazepam 0.5 MG TAB PO SCH ×4 (05:59→23:56)
[2017-12-14] MEDS: VENLAFAXINE HCL XR 75 MG CAP PO SCH (09:59)
[2017-12-14] MEDS: methylPREDNISolone SOD SUCC 125 MG/2 ML VIAL IV PUSH SCH ×2 (10:00→20:27)
[2017-12-14] MEDS: FLUTICASONE 100 MCG/VILANTEROL 25 MCG INHALER INH SCH (10:00)
[2017-12-14] MEDS: ASPIRIN 81 MG CHEW TAB CHEW SCH (10:00)
[2017-12-14] MEDS: PANTOPRAZOLE SOD 20 MG DELAYED RELEASE TAB PO SCH (10:00)
[2017-12-14] MEDS ORDERED: amLODIPine BESYLATE 5 MG TAB PO SCH (11:45)
[2017-12-14] MEDS: ACETAMINOPHEN 500 MG CPLT PO PRN (12:31)
--- NOTE | 2017-12-14 15:52 | HHI.PR ---
Subjective Remarks Less SOB and mild wheezing. No fever. On Nebs q6h.on IV steroids. feels tired. Objective Vital Signs Date Time Temp Pulse Resp B/P (MAP) Pulse Ox O2 Delivery O2 Flow Rate FiO2 12/14/17 13:31 18 12/14/17 12:00 97.7 107 18 182/103 (129) 93 12/14/17 09:24 94 Nasal Cannula 2.00 12/14/17 08:00 97.6 94 17 144/89 (107) 90 12/14/17 04:00 97.6 100 20 150/79 (102) 93 12/14/17 00:00 97.5 104 20 170/98 (122) 93 12/13/17 21:20 92 Nasal Cannula 2.00 12/13/17 20:00 97.6 109 22 159/91 (113) 93 12/13/17 15:58 98.5 95 20 165/99 (121) 96 I/O 12/13/17 12/13/17 12/13/17 12/14/17 12/14/17 12/14/17 07:00 15:00 23:00 07:00 15:00 23:00 Intake Total 360 ml Balance 360 ml Intake Oral 360 ml # Voids 2 # Bowel Movements 0 Result Diagram: 12/11/17 0709 12/11/17 0709 Objective Remarks GENERAL: This is an averagely built, elderly lady who is alert. No lymphadenopathy. HEENT: Head is normocephalic. Pupils are reactive. Tongue is moist. Throat was injected. Nasal mucosa edematous. NECK: Supple, no bruits or thyroid enlargement or lymphadenopathy. CHEST: Distant breath sounds with expiratory wheezes over both lung walker, prolonged expirations. HEART: The heart sounds are irregular S1 and S2 with no murmur. No S3. ABDOMEN: Soft, protuberant without masses. No organomegaly or tenderness. Bowel sounds are active. EXTREMITIES: No lesions, no edema. Peripheral pulses are not well felt. There is no calf tenderness on either side. NEUROLOGIC: Reflexes are 1+ with no gross motor deficits. Cranial nerves grossly intact. SKIN: No lesions. Assessment and Plan Assessment and Plan ASSESSMENT: 1. Chronic obstructive pulmonary disease with acute exacerbation. 2. Bronchospasm and asthmatic bronchitis. 3. Severe peripheral vascular disease. 4. Hypertension. 5. Anxiety. Plan : 1. Cont Nebs q6h , Duoneb 2. Continue antibiotics, Rocephin 3. O2 at 2 L. 4. Solumedrol 40 mg IV Q6H 5. Ativan .5 mg PRN for anxiety. 6. Continue Breo 100/25 mcg , 1 puff daily. 7. PFT friday Guillermo Li MD December 14, 2017 15:52
--- NOTE | 2017-12-14 16:41 | HHI.PR ---
Subjective Remarks Patient reports she feels, "crappy." patient endorses continued SOB with minimal exertion and anxiety Objective Vitals Vital Signs Date Time Temp Pulse Resp B/P (MAP) Pulse Ox O2 Delivery O2 Flow Rate FiO2 12/14/17 13:31 18 12/14/17 12:00 97.7 107 18 182/103 (129) 93 12/14/17 09:24 94 Nasal Cannula 2.00 12/14/17 08:00 97.6 94 17 144/89 (107) 90 12/14/17 04:00 97.6 100 20 150/79 (102) 93 12/14/17 00:00 97.5 104 20 170/98 (122) 93 12/13/17 21:20 92 Nasal Cannula 2.00 12/13/17 20:00 97.6 109 22 159/91 (113) 93 Result Diagram: 12/11/17 0709 12/11/17 0709 Other Results Laboratory Tests Test 12/11/17 19:56 Blood Gas Puncture Site LT RADIAL Blood Gas Patient Temperature 98.6 Blood Gas HCO3 25 mmol/L Blood Gas Base Excess 0.7 mmol/L Blood Gas Oxygen Saturation 92 % Arterial Blood pH 7.43 Arterial Blood Partial Pressure CO2 38 mmHg Arterial Blood Partial Pressure O2 63 mmHG Arterial Blood Oxygen Content 16.4 Vol % Arterial Blood Carboxyhemoglobin 1.0 % Arterial Blood Methemoglobin 0.8 % Blood Gas Hemoglobin 12.8 G/DL Oxygen Delivery Device NASAL CANNULA Blood Gas Liter Flow 2 L/M Imaging Last 24 hours Impressions Chest X-Ray 12/10/17 1611 Signed Impressions: CONCLUSION: 1. COPD with no focal or acute pulmonary infiltrates. 2. Stable exam. No significant change compared to 2017. Objective Remarks GENERAL: This is a well-nourished, well-developed patient, continues to appear anxious CARDIOVASCULAR: Regular rate and rhythm RESPIRATORY: end expiratory wheezing GASTROINTESTINAL: Abdomen soft, non-tender, nondistended. Normal active bowel sounds MUSCULOSKELETAL: Extremities without clubbing, cyanosis, or edema. NEURO: Alert & Oriented x4 to person, place, time, situation. Moves all ext x4 A/P Problem List: (1) COPD exacerbation ICD Codes: J44.1 - Chronic obstructive pulmonary disease with (acute) exacerbation Status: Acute Plan: - 72-year-old female with history of COPD presents for evaluation of cough, sore throat and dyspnea and wheezing. Symptoms started 3 days ago. She reports that she had a prescription for prednisone and azithromycin from her previous visit with her primary care physician she began using this when symptoms started. - Patient is receiving azithromycin and Rocephin will continue - Continue duonebs Q6H and as needed - Continue solu medrol 60 mg IV Q6H - CXR reviewed COPD with no focal or acute pulmonary infiltrate. Stable exam. No significant change compared to 2017 - Supplemental oxygen as needed to maintain saturation above 92% - Consult pulmonology, appreciate input - Continue Breo Ellipta - echocardiogram: Normal left ventricular size. Wall thickness is normal. The left ventricular systolic function is normal with an estimated ejection fraction in the range of 60-65%. Mitral annular calcification is present. Trace mitral valve regurgitation. Aortic valve sclerosis is present. The pulmonary valve is not well visualized. - Dr. Johnson discussed case with patient's daughter over the phone - consult palliative care (2) Hypoxia ICD Codes: R09.02 - Hypoxemia Status: Acute Plan: - Emergency department initially plan to discharge patient but when she stood up oxygen saturation reduced to 89% and patient was symptomatic with shortness of breath - may need oxygen walk test (3) Anxiety ICD Codes: F41.9 - Anxiety disorder, unspecified Plan: - increased Ativan 1 mg PO Q6H, hold for sedation - increase Effexor to 300 mg daily (4) HTN (hypertension) ICD Codes: I10 - Essential (primary) hypertension Status: Chronic Plan: add amlodipine 5 mg PO daily Assessment and Plan Patient examined. Assessment and plan formulated with Padmini Verma PA-C. I agree with the above. Pt remains very anxious. Increase wellbutrin to 300mg daily Increase ativan to 1mg q6h (hold for sedation) Case d/w Dr. Li, Pulmonary Medicine. Obtain Palliative Care Consult. Padmini Verma December 14, 2017 16:41 [place] Johnson DO December 14, 2017 23:38
[2017-12-14] MEDS: ATORVASTATIN 40 MG TAB PO SCH (20:27)
[2017-12-14] MEDS: cefTRIAXone INJ 1,000 MG in SODIUM CHLORIDE 0.9% INJ 100 ML IV SCH (20:28)
[2017-12-14] MEDS: AZITHROMYCIN INJ 500 MG in SODIUM CHLOR 0.9% 250 ML INJ 250 ML IV SCH (23:57)
[2017-12-15] VITALS (9 sets, daily range): BP systolic 103–149; BP diastolic 60–94; PULSE 81–101; RESP 18–22; TEMP 97.5–98.4; O2SAT 90–96
[2017-12-15] MEDS: RESP: ALBUTEROL 2.5 MG/IPRATROPIUM 0.5 MG NEB (SCH) NEB ×4 (02:51→21:16)
[2017-12-15] MEDS: LORazepam 0.5 MG TAB PO SCH ×4 (05:56→23:54)
[2017-12-15 07:24] LABS: AUTOMATED NEUTROPHIL # 16.3 TH/MM3 (1.8-7.7); BASOPHIL # 0.1 TH/MM3 (0-0.2); BASOPHIL % 0.6 % (0.0-2.0); EOSINOPHIL % 0.1 % (0.0-4.0); HEMATOCRIT 41.6 % (35.0-46.0); LYMPH % 12.1 % (9.0-44.0); LYMPHOCYTE # 2.5 TH/MM3 (1.0-4.8); MEAN CELL VOLUME 93.7 FL (80.0-100.0); MEAN CORPUSCULAR HEMOGLOBIN 31.4 PG (27.0-34.0); MEAN CORPUSCULAR HGB CONC 33.5 % (32.0-36.0); MEAN PLATELET VOLUME 7.9 FL (7.0-11.0); MONO % 8.6 % (0.0-8.0); MONOCYTE # 1.8 TH/MM3 (0-0.9); NEUT % 78.6 % (16.0-70.0); PLATELET COUNT 398 TH/MM3 (150-450); RED BLOOD COUNT 4.44 MIL/MM3 (4.00-5.30); RED CELL DISTRIBUTION WIDTH 12.8 % (11.6-17.2); WHITE BLOOD COUNT 20.8 TH/MM3 (4.0-11.0)
[2017-12-15 07:44] LABS: BICARBONATE 28.4 MEQ/L (21.0-32.0); CALCIUM 8.8 MG/DL (8.5-10.1); CREATININE 0.74 MG/DL (0.50-1.00); MAGNESIUM 2.3 MG/DL (1.5-2.5)
[2017-12-15] MEDS: VENLAFAXINE HCL XR 75 MG CAP PO SCH (08:05)
[2017-12-15] MEDS: methylPREDNISolone SOD SUCC 125 MG/2 ML VIAL IV PUSH SCH ×2 (08:05→22:18)
[2017-12-15] MEDS: FLUTICASONE 100 MCG/VILANTEROL 25 MCG INHALER INH SCH (08:06)
[2017-12-15] MEDS: PANTOPRAZOLE SOD 20 MG DELAYED RELEASE TAB PO SCH (08:06)
[2017-12-15] MEDS: amLODIPine BESYLATE 5 MG TAB PO SCH (08:06)
[2017-12-15] MEDS: ASPIRIN 81 MG CHEW TAB CHEW SCH (08:06)
[2017-12-15] MEDS ORDERED: amLODIPine BESYLATE 5 MG TAB PO SCH (09:00)
[2017-12-15 09:10] LABS: BANDS 4 % (0-6); CORRECTED NUCLEATED RBC 1 /100 WBC (0-0); LYMPHOCYTES 10 % (9-44); METAMYELOCYTES 6 % (0-1); MONOCYTES 7 % (0-8); MYELOCYTES 3 % (0-0); NEUTROPHIL # MANUAL DIFF 17.3 TH/MM3 (1.8-7.7); NUCLEATED RED BLOOD CELL 1 (0-0); POLYS (SEG NEUTROPHILS) 70 % (16-70)
--- NOTE | 2017-12-15 09:57 | HHI.PR ---
Subjective Remarks Patient reports breathing is, "about the same." SOB worse with exertion Objective Vitals Vital Signs Date Time Temp Pulse Resp B/P (MAP) Pulse Ox O2 Delivery O2 Flow Rate FiO2 12/15/17 09:00 96 Nasal Cannula 2.00 12/15/17 08:23 Nasal Cannula 2.00 12/15/17 08:00 97.9 81 19 140/94 (109) 95 12/15/17 04:00 97.8 89 22 144/83 (103) 92 12/15/17 02:51 93 Nasal Cannula 2.00 12/15/17 00:00 98.4 101 22 149/60 (89) 90 12/14/17 21:43 98 Nasal Cannula 2.00 12/14/17 20:00 97.9 107 23 135/79 (97) 88 12/14/17 16:00 98.0 103 19 157/94 (115) 90 12/14/17 13:31 18 12/14/17 12:00 97.7 107 18 182/103 (129) 93 Result Diagram: 12/15/17 0620 12/15/17 0620 Imaging Last 24 hours Impressions Chest X-Ray 12/10/17 1611 Signed Impressions: CONCLUSION: 1. COPD with no focal or acute pulmonary infiltrates. 2. Stable exam. No significant change compared to 2017. Objective Remarks GENERAL: This is a well-nourished, well-developed patient, continues to appear anxious CARDIOVASCULAR: Regular rate and rhythm RESPIRATORY: end expiratory wheezing. GASTROINTESTINAL: Abdomen soft, non-tender, nondistended. Normal active bowel sounds MUSCULOSKELETAL: Extremities without clubbing, cyanosis, or edema. NEURO: Alert & Oriented x4 to person, place, time, situation. Moves all ext x4 A/P Problem List: (1) COPD exacerbation ICD Codes: J44.1 - Chronic obstructive pulmonary disease with (acute) exacerbation Status: Acute Plan: COPD exacerbation - 72-year-old female with history of COPD presents for evaluation of cough, sore throat and dyspnea and wheezing. Symptoms started 3 days ago. She reports that she had a prescription for prednisone and azithromycin from her previous visit with her primary care physician she began using this when symptoms started. - Patient is receiving azithromycin and Rocephin will continue - Continue duonebs Q6H and as needed - Continue solu medrol 60 mg IV Q6H - CXR reviewed COPD with no focal or acute pulmonary infiltrate. Stable exam. No significant change compared to 2017 - Supplemental oxygen as needed to maintain saturation above 92% - Consult pulmonology, appreciate input - Continue Miriam Moon - echocardiogram: Normal left ventricular size. Wall thickness is normal. The left ventricular systolic function is normal with an estimated ejection fraction in the range of 60-65%. Mitral annular calcification is present. Trace mitral valve regurgitation. Aortic valve sclerosis is present. The pulmonary valve is not well visualized. - Dr. Johnson discussed case with patient's daughter over the phone (12/14 and ) - consult palliative care Hypoxia - Emergency department initially plan to discharge patient but when she stood up oxygen saturation reduced to 89% and patient was symptomatic with shortness of breath - may need oxygen walk test Anxiety - Ativan 1 mg PO Q6H, hold for sedation - Effexor to 300 mg daily HTN (hypertension) add amlodipine 5 mg PO daily DVT prophylaxis with SCDs and Lovenox (2) Hypoxia ICD Codes: R09.02 - Hypoxemia Status: Acute (3) Anxiety ICD Codes: F41.9 - Anxiety disorder, unspecified Assessment and Plan Patient examined. Assessment and plan formulated with Padmini Verma PA-C. I agree with the above. severe copd exacerbation pt not back to previoius baseline cont solumedrol. nebs. abx. add budesonide nebs. palliative to see her today. Padmini Verma December 15, 2017 09:57 Terrell Louis MD December 15, 2017 21:43
--- NOTE | 2017-12-15 09:59 | RADRPT ---
EXAM DATE: 12/15/2017 9:51 AM EDT AGE/SEX: 72 years / Female INDICATIONS: Shortness of breath CLINICAL DATA: This is the patient's subsequent encounter. Patient reports that signs and symptoms h ave been present for 4 - 6 days and indicates a pain score of 0/10. MEDICAL/SURGICAL HISTORY: Chronic obstructive pulmonary disease. Appendectomy. [place]PAR[place] [facility] [place]. . FINDINGS: PA and lateral views of the chest demonstrate the lungs to be hyperaerated without evidence of mass, infiltrate or effusion. The cardiomediastinal contours are unremarkable. Osseous structures are intac t. CONCLUSION: Hyperinflation which can be seen with COPD. No infiltrate. Electronically signed by: Myke Scott MD 12/15/2017 9:57 AM EDT
[2017-12-15] MEDS: ENOXAPARIN SODIUM 40 MG/0.4 ML SYRINGE SQ SCH (10:31)
--- NOTE | 2017-12-15 15:04 | HHI.PR ---
Subjective Remarks Less SOB and mild wheezing. No chest pain. No fever. On Nebs q6h.on IV steroids. feels anxious. Objective Vital Signs Date Time Temp Pulse Resp B/P (MAP) Pulse Ox O2 Delivery O2 Flow Rate FiO2 12/15/17 12:00 98.0 100 18 147/70 (95) 93 12/15/17 09:00 96 Nasal Cannula 2.00 12/15/17 08:23 Nasal Cannula 2.00 12/15/17 08:00 97.9 81 19 140/94 (109) 95 12/15/17 04:00 97.8 89 22 144/83 (103) 92 12/15/17 02:51 93 Nasal Cannula 2.00 12/15/17 00:00 98.4 101 22 149/60 (89) 90 12/14/17 21:43 98 Nasal Cannula 2.00 12/14/17 20:00 97.9 107 23 135/79 (97) 88 12/14/17 16:00 98.0 103 19 157/94 (115) 90 I/O 12/14/17 12/14/17 12/14/17 12/15/17 12/15/17 12/15/17 07:00 15:00 23:00 07:00 15:00 23:00 Intake Total 360 ml 480 ml 710 ml Balance 360 ml 480 ml 710 ml Intake Oral 360 ml 480 ml 360 ml IV Total 350 ml # Voids 2 3 2 # Bowel Movements 0 0 0 Result Diagram: 12/15/17 0620 12/15/17 0620 Objective Remarks GENERAL: This is an averagely built, elderly lady who is alert. No lymphadenopathy. HEENT: Head is normocephalic. Pupils are reactive. Tongue is moist. Throat was injected. Nasal mucosa edematous. NECK: Supple, no bruits or thyroid enlargement or lymphadenopathy. CHEST: Distant breath sounds with expiratory wheezes over both lung walker. HEART: The heart sounds are irregular S1 and S2 with no murmur. No S3. ABDOMEN: Soft, protuberant without masses. No organomegaly or tenderness. Bowel sounds are active. EXTREMITIES: No lesions, no edema. Peripheral pulses are not well felt. There is no calf tenderness on either side. NEUROLOGIC: Reflexes are 1+ with no gross motor deficits. Cranial nerves grossly intact. SKIN: No lesions. Assessment and Plan Assessment and Plan ASSESSMENT: 1. Chronic obstructive pulmonary disease with acute exacerbation. 2. Bronchospasm and asthmatic bronchitis. 3. Severe peripheral vascular disease. 4. Hypertension. 5. Anxiety. Plan : 1. Cont Nebs q6h , Duoneb 2. Continue antibiotics, Rocephin 3. O2 at 2 L. 4. Solumedrol 60 mg IV Q12H 5. Ativan .5 mg PRN for anxiety. 6. Continue Breo 100/25 mcg , 1 puff daily. 7. Add Theophylline 200 mg daily Guillermo Li MD December 15, 2017 15:04
--- NOTE | 2017-12-15 15:28 | PD.CONS ---
Consult Service Palliative Care Consult Requested By MOLLY Verma/ Dr. Johnson. Primary Care Physician Katy Alcala MD Reason for Consultation a. To assist with evaluation and management of symptoms including: Shortness of breath, anxiety and debility. b. To assist medical decision maker(s) with: better understanding of current medical conditions; weighing benefits/burdens of medical treatment options; making medical treatment decisions. . HPI History of Present Illness Ms. Stephen is a 72-year-old female with a medical history significant for end-stage COPD, CAD status post stents, severe PVD, hyperlipidemia, hypertension , GERD, anxiety and depression. Patient presented to ED on 12/10/17 endorsing cough, dyspnea and wheezing for the prior 3 days. Patient reports that she was recently prescribed prednisone and azithromycin by her primary care physician. Chest x-ray revealed COPD with no focal or acute pulmonary infiltrates. Laboratory workup revealed leukocytosis 15.2, Hgb 14.7, platelet count 342. BMP unremarkable. During ED stay, patient's symptoms felt to improve, however, patient desaturated to the 80s with exacerbation. Patient was started on IV antibiotics and admitted for further management. Pulmonology, Dr. Li consulted on 12/11/17 for evaluation of COPD and respiratory distress. Patient with significant recurrent exacerbations of bronchitis and COPD, medical management recommended with continuation of antibiotic coverage. 2D echocardiogram 12/12/17 revealing EF of 60-65%, trace mitral valve regurgitation. Patient with persistent dyspnea at rest and on minimal exertion, palliative care has been consulted for further clarifications of goals of care in the setting of end-stage COPD. Reviewed medical history and prior hospitalizations. Patient with severe peripheral vascular disease status post femoral-popliteal bypass in the right side, she recently underwent a femoral angiogram and was due to have stents put it. Recent ED visit on 10/27/17 secondary to worsening shortness of breath with minimal exertion. Patient with slightly elevated WBC count of 12.9, chest x- ray noted minimal density left lower lobe. Patient was given IV azithromycin and Rocephin but did not require supplemental oxygen. She was discharged home on p.o. azithromycin and recommendations to follow up with primary care provider. Hospitalization from 11/18/16 to 11/21/16 secondary to COPD exacerbation. During that admission, cardiology Dr. Blue was consulted secondary to chest pain with history of CAD. Patient reported a nuclear stress test approximately 2 years prior which was negative for ischemia. Lexiscan with low probability of acute ischemia. Patient was discharged home. Met with patient. She was alert and oriented x self, place and situation. Verbal, paused speech secondary to dyspnea at rest. Patient endorsing not feeling well, reports feeling very shaky secondary to steroids. Remains dyspneic at rest and on minimal exertion. No nausea/vomiting or abdominal discomfort. In this first visit, reviewed the role of palliative care in advanced illness in regards to symptom management as well as support surrounding goals of care and advance care planning. Patient receptive to visit , however, verbalized not feeling well. Obtained past medical history and psychosocial history. Reviewed events leading to this hospitalization, clinical course and current medical management. Reviewed likely illness trajectory in the setting of end-stage COPD with multiple recent acute exacerbations, bronchitis. Patient reports that within the past 2 months, she has been feeling very sick. Patient with no history of oxygen at home, however , reviewed that walk test might be required for discharge given symptom/end- stage COPD. Reviewed risks, benefits and limitations of CPR, intubation and mechanical ventilation given her clinical condition with multiple comorbidities. She verbalized wishing to remain full code, accepting invasive interventions such as CPR and intubation with mechanical ventilation "only for short period of time". Patient reports that no advanced directives or living will has been completed. Review with patient that in the absence of advance directives, majority of her 4 children will serve as proxy. Living will, designation of healthcare surrogate information was provided, forms left at bedside as per patient's request. Hospice philosophy and benefits introduced in the setting of end-stage COPD with multiple comorbidities, patient verbalized that she is familiar with hospice. Receptive to discussing goals of care with her children. Receptive to palliative care follow-ups. Patient asked me to talk to her daughter Kacie Aguilera, lengthy conversation with daughter. Reviewed events leading to this hospitalization, clinical course and current medical management. Reviewed likely illness trajectory in the setting of end-stage COPD with multiple recent acute exacerbations, bronchitis. Daughter reports that she has witnessed her mother's progressive decline, worsened during the past 2 months with recurrent COPD exacerbations and infections. Goal of therapy is to allow a few more days for clinical improvement with the understanding that patient remains at high risk for further complications, continued decline and . Hospice benefits and philosophy introduced and reviewed at length. Daughter appears very receptive to home with hospice upon discharge. At this time, daughter is in favor of maximizing patient's medical management. Receptive to palliative care follow- ups. . Function/Cognitive Trajectory Patient residing with laura Harris prior to this hospitalization. Reports that she was independent with all her ADLs. No cognitive deficit reported or noted. . Review of Systems ROS Limitations: Clinical Condition Constitutional: COMPLAINS OF: Fatigue, Pain, Generalized weakness, DENIES: Fever Endocrine: DENIES: Heat/cold intolerance Eyes: DENIES: Blurred vision, Eye pain, Vision loss Ears, nose, mouth, throat: DENIES: Hearing loss, Nasal discharge, Oral lesions , Running Nose, Epistaxis Respiratory: COMPLAINS OF: Cough, Wheezing, Sputum production, Shortness of breath Cardiovascular: COMPLAINS OF: Dyspnea on Exertion, Orthopnea, DENIES: Chest pain, Lower Extremity Edema Gastrointestinal: DENIES: Nausea, Vomiting, Difficulty Swallowing Genitourinary: DENIES: Urinary incontinence, Hematuria Musculoskeletal: DENIES: Muscle aches, Stiffness Integumentary: DENIES: Rash Hematologic/Lymphatics: COMPLAINS OF: Bruising Immunologic/Allergic: DENIES: Eczema Neurologic: COMPLAINS OF: Tremor, DENIES: Abnormal gait, Localized weakness, Seizures, Speech Problems, Poor Balance Psychiatric: COMPLAINS OF: Anxiety, Depression, DENIES: Hallucinations, Agitation Past Family Social History Coded Allergies: Sulfa (Sulfonamide Antibiotics) (Verified Allergy, Severe, HIVES, 12/10/17) HIVES; THROAT SWELLING; SEVERE REACTION ciprofloxacin (Verified Allergy, Severe, 12/10/17) SHAKES ALL OVER; ELEVATED BLOOD PRESSURE fluticasone (Verified Allergy, Severe, 12/10/17) SHAKES ALL OVER; ELEVATES BLOOD PRESSURE; SEVERE REACTION fluticasone furoate (Verified Allergy, Severe, 12/10/17) SHAKES ALL OVER; ELEVATES BLOOD PRESSURE; SEVERE REACTION salmeterol (Verified Allergy, Severe, 12/10/17) SHAKES ALL OVER; ELEVATES BLOOD PRESSURE; SEVERE REACTION Past Medical History End-stage COPD CAD status post stent of the left circumflex in 1999 PVD Hypertension Hyperlipidemia GERD Anxiety Depression Femoral artery aneurysm, right Fibromyalgia Vitamin D deficiency . 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 Reported Medications Prednisone (21) 10 mg tab Dose Pack (Prednisone) 10 Mg Pack 10 Mg PO DIRECTED Vitamin D (Cholecalciferol) 2,000 Unit Cap Atorvastatin (Atorvastatin Calcium) 40 Mg Tab 40 Mg PO HS Effexor (Venlafaxine HCl) 75 Mg Tab 150 Mg PO DAILY Omeprazole 20 Mg Tab 20 Mg PO DAILY Aspirin 81 Mg Chew 81 Mg CHEW DAILY . Current Medications Medications (Trade) Dose Ordered Sig/Tay Route Start Time Stop Time Status Last Admin (NS Flush) 2 ml UNSCH PRN IVF 12/10/17 16:15 12/13/17 10:22 Ceftriaxone Sodium 1000 mg/ Sodium Chloride 100 ml @ 200 mls/hr Q24H IV 12/11/17 20:00 12/14/17 20:28 Azithromycin 500 mg/Sodium Chloride 250 ml @ 250 mls/hr Q24H IV 12/11/17 21:00 12/14/17 23:57 (Aspirin Chew) 81 mg DAILY CHEW 12/11/17 09:00 12/15/17 08:06 (Lipitor) 40 mg HS PO 12/11/17 21:00 12/14/17 20:27 (Protonix) 20 mg DAILY PO 12/11/17 09:00 12/15/17 08:06 (Duoneb Neb) 1 ampule Q2HR NEB PRN NEB 12/11/17 12:15 (Breo Ellipta 100-25 Inh) 1 puff DAILY INH 12/12/17 09:00 12/15/17 08:06 (Duoneb Neb) 1 ampule Q6HR NEB NEB 12/12/17 16:00 12/15/17 08:59 (Proair Hfa Inh) 2 puff Q4H PRN INH 12/13/17 17:00 (SoluMEDROL INJ) 60 mg Q12HR IV PUSH 12/13/17 21:00 12/15/17 08:05 (Tylenol) 1,000 mg Q8HR PRN PO 12/13/17 17:15 12/14/17 12:31 (Catapres) 0.1 mg Q6H PRN PO 12/14/17 01:15 (Ativan) 1 mg Q6HR PO 12/14/17 18:00 12/15/17 05:56 (Effexor Xr) 300 mg DAILY PO 12/15/17 09:00 12/15/17 08:05 (Norvasc) 5 mg DAILY PO 12/15/17 09:00 12/15/17 08:06 (Lovenox Inj) 40 mg Q24H SQ 12/15/17 10:00 12/15/17 10:31 Family History Father of heart disease. Substance Use Tobacco: Former smoker. One pack per day for 50 years. Quit in 2011. Alcohol: Denies. Prescription med abuse: Denies. Illicits: Denies. . Psychosocial History Patient originally from [place], moved to [place] 17 years ago. She is , has 4 children: Daughters Kacie Harris and Precious, son Carlos. 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 . Spiritual/Cultural Factors No hoahaoism affiliation. . Living Will: Never completed Health Care Surrogate: Never completed Durable Power of Die Keeper: Never completed Health Care Surrogate(s): No advance directives completed as of 12/15/17. Patient is . As per [place] statue, healthcare proxy decision making falls to the majority of patient's children for which she has 4. . Today's verbally stated goals: Aggressive management to include full code. . Family/friends goals: Daughter Kacie fully supportive of patient's wishes. . Ethical and Legal Issues No ethical legal issues identified. . Physical Exam Vital Signs Date Time Temp Pulse Resp B/P (MAP) Pulse Ox O2 Delivery O2 Flow Rate FiO2 12/15/17 12:00 98.0 100 18 147/70 (95) 93 12/15/17 09:00 96 Nasal Cannula 2.00 12/15/17 08:23 Nasal Cannula 2.00 12/15/17 08:00 97.9 81 19 140/94 (109) 95 12/15/17 04:00 97.8 89 22 144/83 (103) 92 12/15/17 02:51 93 Nasal Cannula 2.00 12/15/17 00:00 98.4 101 22 149/60 (89) 90 12/14/17 21:43 98 Nasal Cannula 2.00 12/14/17 20:00 97.9 107 23 135/79 (97) 88 12/14/17 16:00 98.0 103 19 157/94 (115) 90 Exam CONSTITUTIONAL/GENERAL: This is an adequately nourished patient in moderate distress secondary to increased work of breathing. TUBES/LINES/DRAINS: PIV, nasal cannula, bilateral SCDs. SKIN: No jaundice, rashes, or lesions. Large areas of ecchymoses on upper extremities. No wounds seen anteriorly. Skin temperature appropriate. Not diaphoretic. HEAD: Atraumatic. Normocephalic. EYES: Pupils equal and round and reactive. Extraocular motions intact. No scleral icterus. No injection or drainage. ENT: Hearing grossly normal. Nose without bleeding or purulent drainage. Moist oral mucosa. NECK: Trachea midline. Supple, nontender. CARDIOVASCULAR: Regular rate and rhythm. Peripheral pulses symmetric. RESPIRATORY/CHEST: Symmetric, increased work of breathing at rest. Paused speech. Mild inspiratory and expiratory wheezes bilaterally. Cough. GASTROINTESTINAL: Abdomen soft, non-tender, nondistended. No guarding. Bowel sounds present. GENITOURINARY: Without palpable bladder distension. MUSCULOSKELETAL: Extremities without clubbing, cyanosis, or edema. No mottling or clubbing. NEUROLOGICAL: Awake and alert. Motor and sensory grossly within normal limits. Follows commands. Moves all extremities. Tremors to bilateral upper extremities. PSYCHIATRIC: Anxious, restless. . Diagnostic Tests Laboratory Laboratory Tests Test 12/15/17 06:20 White Blood Count 20.8 TH/MM3 (4.0-11.0) Red Blood Count 4.44 MIL/MM3 (4.00-5.30) Hemoglobin 14.0 GM/DL (11.6-15.3) Hematocrit 41.6 % (35.0-46.0) Mean Corpuscular Volume 93.7 FL (80.0-100.0) Mean Corpuscular Hemoglobin 31.4 PG (27.0-34.0) Mean Corpuscular Hemoglobin Concent 33.5 % (32.0-36.0) Red Cell Distribution Width 12.8 % (11.6-17.2) Platelet Count 398 TH/MM3 (150-450) Mean Platelet Volume 7.9 FL (7.0-11.0) Neutrophils (%) (Auto) 78.6 % (16.0-70.0) Lymphocytes (%) (Auto) 12.1 % (9.0-44.0) Monocytes (%) (Auto) 8.6 % (0.0-8.0) Eosinophils (%) (Auto) 0.1 % (0.0-4.0) Basophils (%) (Auto) 0.6 % (0.0-2.0) Neutrophils # (Auto) 16.3 TH/MM3 (1.8-7.7) Lymphocytes # (Auto) 2.5 TH/MM3 (1.0-4.8) Monocytes # (Auto) 1.8 TH/MM3 (0-0.9) Eosinophils # (Auto) 0.0 TH/MM3 (0-0.4) Basophils # (Auto) 0.1 TH/MM3 (0-0.2) CBC Comment AUTO DIFF Differential Total Cells Counted 100 Neutrophils % (Manual) 70 % (16-70) Band Neutrophils % 4 % (0-6) Lymphocytes % 10 % (9-44) Monocytes % 7 % (0-8) Neutrophils # (Manual) 17.3 TH/MM3 (1.8-7.7) Metamyelocytes 6 % (0-1) Myelocytes 3 % (0-0) Nucleated Red Blood Cells 1 /100 WBC (0-0) Differential Comment FINAL DIFF MANUAL Platelet Estimate NORMAL (NORMAL) Platelet Morphology Comment NORMAL (NORMAL) Red Cell Morphology Comment NORMAL (NORMAL) Blood Urea Nitrogen 19 MG/DL (7-18) Creatinine 0.74 MG/DL (0.50-1.00) Random Glucose 114 MG/DL (74-106) Calcium Level 8.8 MG/DL (8.5-10.1) Magnesium Level 2.3 MG/DL (1.5-2.5) Sodium Level 138 MEQ/L (136-145) Potassium Level 3.9 MEQ/L (3.5-5.1) Chloride Level 100 MEQ/L (98-107) Carbon Dioxide Level 28.4 MEQ/L (21.0-32.0) Anion Gap 10 MEQ/L (5-15) Estimat Glomerular Filtration Rate 77 ML/MIN (>89) Result Diagram: 12/15/17 0620 12/15/17 0620 Imaging Last Impressions Chest X-Ray 5/28/18 0800 Signed Impressions: CONCLUSION: Hyperinflation which can be seen with COPD. No infiltrate. Patient/Family Conference Present at Family Conference: Patient, daughter Kacie Aguilera. Family Conference Time (mins): 48 Family Conference Location: Bedside, Telephone Issues Discussed: * Palliative care role, purpose, approach * Additional medical, psychosocial, and spiritual history * Patients general health, functional status, and cognitive changes in the months leading up to the current hospitalization * Patient/family understanding of the current medical problems -end-stage COPD, multiple ongoing chronic comorbidities to include CAD, PVD, hypertension. * Patient/family understanding of prognosis -high risk for further decompensation and . * Patients goals of care as best understood from advance directives and/or conversations and/or values * Current medical treatment options and benefits/burdens of those options * Likely scenarios comparing ongoing aggressive care with a transition to comfort measures only * Questions answered to the best of my ability * Palliative care contact information provided * Risks, benefits and limitations of CPR, intubation and mechanical ventilation in the setting of end-stage COPD * Hospice philosophy and benefits reviewed at length . Assessment and Plan Disease Oriented Problem List: (1) Hypoxia (2) COPD exacerbation (3) Dyspnea and respiratory abnormalities (4) CAD (coronary artery disease) (5) PVD (peripheral vascular disease) (6) Hypertension Symptom Scale: (1) Dyspnea 0-10 Scale: 9 (2) Pain 0-10 Scale: 3 (3) Anxiety 0-10 Scale: 7 Pertinent Non-Medical Issues Psychosocial: Patient originally from [place], moved to [place] 17 years ago. She is , has 4 children: Daughters Kimberly, Kacie and Precious, son Carlos. 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 Spiritual: No hoahaoism affiliation. Legal: No advance directives completed. Ethical issues impacting care: No ethical issues identified. . Important Contacts Daughter Kacie Aguilera Daughter Kimberly Draper . Daughter Precious Son Carlos . Prognosis Ms. Stephen is a 72-year-old female with a medical history significant for end-stage COPD, CAD status post stents, severe PVD, hyperlipidemia, hypertension , GERD, anxiety and depression. Patient with progressive decline and recent multiple acute COPD exacerbations with bronchitis and pneumonia. Patient end- stage COPD with multiple ongoing chronic comorbidities, remains at a very high risk for further complications, continued decline and . . Code Status: Full Code Plan * CODE STATUS: Full code. Risks, benefits and limitations of CPR, intubation and mechanical ventilation discussed at length with patient and daughter Kacie given patient's end-stage COPD along with multiple chronic ongoing comorbidities. * HEALTHCARE DECISION-MAKING: Patient participating in medical decision making. She appears to have a fair understanding of her clinical condition, prognosis. Appears to retain the ability to weight benefits vs burdens of treatment options. No advance directives completed. Patient is . As per [place] statue, healthcare proxy decision making falls to the majority of patient's children for which she has 4: Kacie Harris, Precious and Carlos. Patient interested in completing living will/designation of healthcare surrogate, forms left at bedside for further review as per her request. * GOALS OF CARE: Patient electing continuation of aggressive management to include full code. Reviewed likely illness trajectory in the setting of end- stage COPD with multiple recent acute exacerbations, bronchitis. Patient reports that within the past 2 months, she has been feeling "very sick". Reviewed risks, benefits and limitations of CPR, intubation and mechanical ventilation given her clinical condition with multiple comorbidities. She verbalized wishing to remain full code, accepting invasive interventions such as CPR and intubation with mechanical ventilation "only for short period of time ". Hospice philosophy and benefits introduced to patient and daughter Kacie. Reviewed the future role of hospice should patient's clinical condition does not improve or in the setting of increased symptom burden. Patient and daughter aKcie appears receptive to this, they were both encouraged to continue goals of care conversation with additional family members. * SYMPTOMS: =Dyspnea. End-stage COPD with multiple recent exacerbations. Currently on Solu-Medrol, duo nebs and antibiotic treatment. Remains O2 via nasal cannula 2 L, May require walk test. Pulmonology following. =Anxiety: Exacerbated by shortness of breath and Solu-Medrol. Patient reports that she is very sensitive to steroids causing restlessness and shakiness. Lorazepam 1 mg every 6 hours [id number]. =Pain: History of chronic pain, fibromyalgia. Denies pain during my visit. * Living will and designation of healthcare surrogate introduced to patient and daughter Kacie. Forms left at bedside as per their request. * Palliative care contact information has been provided to patient and family. * Palliative care will continue to follow up for further clarification of goals of care as patient's clinical course continues to evolve. . Time Spent Total Floor Time (mins): 65 (Total time to include review and summarization of available medical records to include multiple prior acute hospitalizations and ED visits, physical exam, goals of care conversation with patient, goals of care conversation with daughter Kacie.) >50% Counseling/Coord of Care: Yes Thank you for the opportunity to participate in the care of Ms. Stephen. Attestation To help prompt me to consider important information that might be impacting today's encounter and assessment, information from prior notes written by myself or my colleagues may have been "brought forward" into today's note. My signature on this note, however, is an attestation that I personally performed the exam, history, and/or decision-making noted today, and, unless otherwise indicated, the interactions with patient, family, and staff as well as the review of records all occurred today. I also attest that the listed assessment and stated plan reflect my best clinical judgment today based on the combination of historical information, prior notes, and today's exam/ interactions. When time spent is documented, it refers only to time spent today by the signer, or if indicated, combined time spent today by collaborating physician/nurse practitioner. Juliette Peoples December 15, 2017 15:28
[2017-12-15] MEDS: RESP: BUDESONIDE 0.25 MG/2 ML NEB NEB SCH ×2 (16:30→21:16)
[2017-12-15] MEDS: ATORVASTATIN 40 MG TAB PO SCH (21:00)
[2017-12-15] MEDS: cefTRIAXone INJ 1,000 MG in SODIUM CHLORIDE 0.9% INJ 100 ML IV SCH (22:18)
[2017-12-15] MEDS: AZITHROMYCIN INJ 500 MG in SODIUM CHLOR 0.9% 250 ML INJ 250 ML IV SCH (23:58)
[2017-12-16] VITALS (7 sets, daily range): BP systolic 124–157; BP diastolic 60–89; PULSE 83–109; RESP 18–22; TEMP 97.5–98.8; O2SAT 92–97
[2017-12-16] MEDS: RESP: ALBUTEROL 2.5 MG/IPRATROPIUM 0.5 MG NEB (SCH) NEB ×4 (05:10→22:00)
[2017-12-16 05:59] LABS: AUTOMATED NEUTROPHIL # 15.9 TH/MM3 (1.8-7.7); BASOPHIL # 0.1 TH/MM3 (0-0.2); BASOPHIL % 0.6 % (0.0-2.0); EOSINOPHIL % 0.1 % (0.0-4.0); HEMATOCRIT 43.7 % (35.0-46.0); HEMOGLOBIN 14.7 GM/DL (11.6-15.3); LYMPH % 11.8 % (9.0-44.0); LYMPHOCYTE # 2.3 TH/MM3 (1.0-4.8); MEAN CELL VOLUME 93.9 FL (80.0-100.0); MEAN CORPUSCULAR HEMOGLOBIN 31.6 PG (27.0-34.0); MEAN CORPUSCULAR HGB CONC 33.6 % (32.0-36.0); MEAN PLATELET VOLUME 7.9 FL (7.0-11.0); MONO % 5.6 % (0.0-8.0); MONOCYTE # 1.1 TH/MM3 (0-0.9); NEUT % 81.9 % (16.0-70.0); PLATELET COUNT 406 TH/MM3 (150-450); RED BLOOD COUNT 4.66 MIL/MM3 (4.00-5.30); RED CELL DISTRIBUTION WIDTH 12.8 % (11.6-17.2); WHITE BLOOD COUNT 19.4 TH/MM3 (4.0-11.0)
[2017-12-16] MEDS: LORazepam 0.5 MG TAB PO SCH ×3 (06:00→17:43)
[2017-12-16] MEDS: PANTOPRAZOLE SOD 20 MG DELAYED RELEASE TAB PO SCH (08:19)
[2017-12-16] MEDS: methylPREDNISolone SOD SUCC 125 MG/2 ML VIAL IV PUSH SCH (08:19)
[2017-12-16] MEDS: FLUTICASONE 100 MCG/VILANTEROL 25 MCG INHALER INH SCH (08:19)
[2017-12-16] MEDS: ASPIRIN 81 MG CHEW TAB CHEW SCH (08:20)
[2017-12-16] MEDS: amLODIPine BESYLATE 5 MG TAB PO SCH (08:20)
[2017-12-16] MEDS: THEOPHYLLINE 200 MG EXTENDED RELEASE CAP PO SCH (08:20)
[2017-12-16] MEDS: VENLAFAXINE HCL XR 75 MG CAP PO SCH (08:26)
[2017-12-16] MEDS: ACETAMINOPHEN 500 MG CPLT PO PRN (08:26)
--- NOTE | 2017-12-16 08:31 | HHI.PR ---
Subjective Remarks Patient resting in bed with friend at bedside patient reports continued SOB with minimal exertion appears less anxious at today Objective Vitals Vital Signs Date Time Temp Pulse Resp B/P (MAP) Pulse Ox O2 Delivery O2 Flow Rate FiO2 12/16/17 00:00 97.6 92 22 143/89 (107) 94 12/15/17 22:00 Nasal Cannula 3.00 12/15/17 21:19 93 Nasal Cannula 2.00 12/15/17 20:00 97.5 99 22 138/76 (96) 93 12/15/17 16:00 97.7 100 19 103/65 (78) 93 12/15/17 12:00 98.0 100 18 147/70 (95) 93 12/15/17 09:00 96 Nasal Cannula 2.00 Result Diagram: 12/16/17 0454 12/15/17 0620 Other Results Laboratory Tests Test 12/15/17 06:20 12/16/17 04:54 White Blood Count 20.8 TH/MM3 19.4 TH/MM3 Red Blood Count 4.44 MIL/MM3 4.66 MIL/MM3 Hemoglobin 14.0 GM/DL 14.7 GM/DL Hematocrit 41.6 % 43.7 % Mean Corpuscular Volume 93.7 FL 93.9 FL Mean Corpuscular Hemoglobin 31.4 PG 31.6 PG Mean Corpuscular Hemoglobin Concent 33.5 % 33.6 % Red Cell Distribution Width 12.8 % 12.8 % Platelet Count 398 TH/MM3 406 TH/MM3 Mean Platelet Volume 7.9 FL 7.9 FL Neutrophils (%) (Auto) 78.6 % 81.9 % Lymphocytes (%) (Auto) 12.1 % 11.8 % Monocytes (%) (Auto) 8.6 % 5.6 % Eosinophils (%) (Auto) 0.1 % 0.1 % Basophils (%) (Auto) 0.6 % 0.6 % Neutrophils # (Auto) 16.3 TH/MM3 15.9 TH/MM3 Lymphocytes # (Auto) 2.5 TH/MM3 2.3 TH/MM3 Monocytes # (Auto) 1.8 TH/MM3 1.1 TH/MM3 Eosinophils # (Auto) 0.0 TH/MM3 0.0 TH/MM3 Basophils # (Auto) 0.1 TH/MM3 0.1 TH/MM3 CBC Comment AUTO DIFF AUTO DIFF Differential Total Cells Counted 100 Neutrophils % (Manual) 70 % Band Neutrophils % 4 % Lymphocytes % 10 % Monocytes % 7 % Neutrophils # (Manual) 17.3 TH/MM3 Metamyelocytes 6 % Myelocytes 3 % Nucleated Red Blood Cells 1 /100 WBC Differential Comment FINAL DIFF MANUAL Platelet Estimate NORMAL Platelet Morphology Comment NORMAL Red Cell Morphology Comment NORMAL Blood Urea Nitrogen 19 MG/DL Creatinine 0.74 MG/DL Random Glucose 114 MG/DL Calcium Level 8.8 MG/DL Magnesium Level 2.3 MG/DL Sodium Level 138 MEQ/L Potassium Level 3.9 MEQ/L Chloride Level 100 MEQ/L Carbon Dioxide Level 28.4 MEQ/L Anion Gap 10 MEQ/L Estimat Glomerular Filtration Rate 77 ML/MIN Imaging Last 24 hours Impressions Chest X-Ray 12/10/17 1611 Signed Impressions: CONCLUSION: 1. COPD with no focal or acute pulmonary infiltrates. 2. Stable exam. No significant change compared to 2017. Objective Remarks GENERAL: This is a well-nourished, well-developed patient, appears less anxious today CARDIOVASCULAR: Regular rate and rhythm RESPIRATORY: decreased through out with end expiratory wheezing. GASTROINTESTINAL: Abdomen soft, non-tender, nondistended. Normal active bowel sounds MUSCULOSKELETAL: Extremities without clubbing, cyanosis, or edema. NEURO: Alert & Oriented x4 to person, place, time, situation. Moves all ext x4 A/P Problem List: (1) COPD exacerbation ICD Codes: J44.1 - Chronic obstructive pulmonary disease with (acute) exacerbation Status: Acute Plan: COPD exacerbation - 72-year-old female with history of COPD presents for evaluation of cough, sore throat and dyspnea and wheezing. Symptoms started 3 days ago. She reports that she had a prescription for prednisone and azithromycin from her previous visit with her primary care physician she began using this when symptoms started. - Patient is receiving azithromycin and Rocephin will continue - Continue duonebs Q6H and as needed - Continue budesonide neb Q12H - Continue solu medrol 60 mg IV Q6H - CXR reviewed COPD with no focal or acute pulmonary infiltrate. Stable exam. No significant change compared to 2017 - Supplemental oxygen as needed to maintain saturation above 92% - Consult pulmonology, appreciate input - Continue Breo Ellipta - echocardiogram: Normal left ventricular size. Wall thickness is normal. The left ventricular systolic function is normal with an estimated ejection fraction in the range of 60-65%. Mitral annular calcification is present. Trace mitral valve regurgitation. Aortic valve sclerosis is present. The pulmonary valve is not well visualized. - Dr. Johnson discussed case with patient's daughter over the phone (12/14 and ) - Per patient request I updated patient's daughter Kacie Aguilera (12/16) - consult palliative care, appreciate input. Patient would like to continue aggressive care and remain a full code at this time. Hypoxia - Emergency department initially plan to discharge patient but when she stood up oxygen saturation reduced to 89% and patient was symptomatic with shortness of breath - may need oxygen walk test Anxiety - Ativan 1 mg PO Q6H, hold for sedation - Effexor to 300 mg daily HTN (hypertension) add amlodipine 5 mg PO daily DVT prophylaxis with SCDs and Lovenox (2) Hypoxia ICD Codes: R09.02 - Hypoxemia Status: Acute (3) Anxiety ICD Codes: F41.9 - Anxiety disorder, unspecified Assessment and Plan Patient examined. Assessment and plan formulated with Padmini Verma PA-C. I agree with the above. end stage copd with flare. discussed with pulmonary. nebs/steroids iv and nebulized. abx. theophylline long talk with pt. she would want dnr. but she isn't interested in hospice at this time. local daughter present. I will try to call her daughter Kacie tomorrow. Padmini Verma December 16, 2017 08:31 Terrell Louis MD December 16, 2017 13:04
[2017-12-16] MEDS: RESP: BUDESONIDE 0.5 MG/2 ML NEB NEB SCH ×2 (09:00→20:56)
[2017-12-16 09:07] LABS: BANDS 2 % (0-6); LYMPHOCYTES 13 % (9-44); METAMYELOCYTES 3 % (0-1); MONOCYTES 4 % (0-8); MYELOCYTES 2 % (0-0); NEUTROPHIL # MANUAL DIFF 16.1 TH/MM3 (1.8-7.7); POLYS (SEG NEUTROPHILS) 76 % (16-70)
[2017-12-16] MEDS: ENOXAPARIN SODIUM 40 MG/0.4 ML SYRINGE SQ SCH (10:45)
--- NOTE | 2017-12-16 18:38 | HHI.HCPN ---
Reason for visit a. To assist with evaluation and management of symptoms including: Shortness of breath, anxiety and debility. b. To assist medical decision maker(s) with: better understanding of current medical conditions; weighing benefits/burdens of medical treatment options; making medical treatment decisions. . Subjective/Interval History Pt seen today to follow up on dyspnea; goals. Notified by medical attending that pt daughters requesting family meeting/follow up . Pt remains stable. On NC. WBC 19.4, daily. CBC, chemistry otherwise unremarkable. No new imaging today. Patient seen in room as her son is leaving. She is alert, tearful at my arrival. Ask her permission to proceed with visit, she indicates I can proceed asks the purpose of my visit. Review palliative care follow-up to revisit discussions with palliative LENS GENERATING MACHINE TENDER she had yesterday, as well as if she has any additional questions about advanced directive documents etc. which were left with her yesterday. Also advised that medical attending notified palliative that daughters were possibly requesting follow-up meeting for further discussions regarding clinical conditions, prognosis etc. patient recalls visit with Palliative LENS GENERATING MACHINE TENDER yesterday. She is tearful. She tells me that she does not wish to talk about this anymore. She does"not understand why everyone keeps talking about end-stage and end-of-life when she has been doing fine up until now". She tells me she has never even required oxygen in the past. She appears to be struggling with prognosis. Ask her if she has any further questions about documents left yesterday. She tells me she is not at end-of- life does not understand why everyone keeps pressuring her to make these decisions right now. She indicates she is still taking everything in. Gently explore that I am here to support her and answer whatever questions she may have and that we are here to help ensure that whatever her wishes would be should her condition worsen we would honor those wishes. Ask if she and/or her daughter's would like to arrange a follow-up meeting with palliative and possibly other medical providers for tomorrow. She declines this. She also declines my offer to call them today. She indicates 1 of her daughters is driving back down from out of state and does not want her to be called on the road. She denies that she has been in communication with all of her children and she does NOT want me to call any of them at this time. Gently explore resuscitation status is addressed with all patients upon hospitalization regardless of conditions or prognosis. Attempt to obtain ROS, she indicates her breathing feels as usual no better or worse. She denies any GI complaints. Left her with palliative contact information so when additional family arrives tomorrow she may contact me to assist with additional updates. . Advance Directives Living Will: Never completed Health Care Surrogate: Never completed Durable Power of Solid Waste Truck Driver: Never completed Advance Directive Specifics Health Care Surrogate(s): No advance directives completed as of 12/15/17. Patient is . As per [place] statue, healthcare proxy decision making falls to the majority of patient's children for which she has 4. . Objective Vital Signs Date Time Temp Pulse Resp B/P (MAP) Pulse Ox O2 Delivery O2 Flow Rate FiO2 12/16/17 12:00 97.5 98 18 138/74 (95) 96 12/16/17 09:00 95 Nasal Cannula 1.50 12/16/17 08:00 97.8 83 19 124/60 (81) 92 12/16/17 00:00 97.6 92 22 143/89 (107) 94 12/15/17 22:00 Nasal Cannula 3.00 12/15/17 21:19 93 Nasal Cannula 2.00 12/15/17 20:00 97.5 99 22 138/76 (96) 93 Intake & Output 12/16/17 12/16/17 07:00 19:00 Intake Total 590 ml Balance 590 ml Intake Oral 240 ml IV Total 350 ml # Voids 2 # Bowel Movements 0 Physical Exam CONSTITUTIONAL/GENERAL: This is an adequately nourished patient, tearful, visibly dyspneic with conversation TUBES/LINES/DRAINS: PIV, nasal cannula, bilateral SCDs. SKIN: No jaundice, rashes, or lesions. Large areas of ecchymoses on upper extremities. No wounds seen anteriorly. Skin warm/dry CARDIOVASCULAR: Regular rate and rhythm no murmur. Peripheral pulses symmetric. RESPIRATORY/CHEST: Symmetric, unlabored respirations at rest. Mildly short of breath at rest, this worsens with conversation. Must pause when speaking to catch breath. Faint Inspiratory and expiratory wheezes throughout. Paused speech. GASTROINTESTINAL: Abdomen soft, non-tender, nondistended. No guarding. Bowel sounds present. MUSCULOSKELETAL: Extremities without clubbing, cyanosis, or edema. No mottling or clubbing. NEUROLOGICAL: Awake and alert. Appropriate, though tearful. Follows commands. Moves all extremities. Tremors to bilateral upper extremities. PSYCHIATRIC: Anxious, tearful . Diagnostic Tests Laboratory Laboratory Tests Test 12/15/17 06:20 12/16/17 04:54 White Blood Count 20.8 TH/MM3 (4.0-11.0) 19.4 TH/MM3 (4.0-11.0) Red Blood Count 4.44 MIL/MM3 (4.00-5.30) 4.66 MIL/MM3 (4.00-5.30) Hemoglobin 14.0 GM/DL (11.6-15.3) 14.7 GM/DL (11.6-15.3) Hematocrit 41.6 % (35.0-46.0) 43.7 % (35.0-46.0) Mean Corpuscular Volume 93.7 FL (80.0-100.0) 93.9 FL (80.0-100.0) Mean Corpuscular Hemoglobin 31.4 PG (27.0-34.0) 31.6 PG (27.0-34.0) Mean Corpuscular Hemoglobin Concent 33.5 % (32.0-36.0) 33.6 % (32.0-36.0) Red Cell Distribution Width 12.8 % (11.6-17.2) 12.8 % (11.6-17.2) Platelet Count 398 TH/MM3 (150-450) 406 TH/MM3 (150-450) Mean Platelet Volume 7.9 FL (7.0-11.0) 7.9 FL (7.0-11.0) Neutrophils (%) (Auto) 78.6 % (16.0-70.0) 81.9 % (16.0-70.0) Lymphocytes (%) (Auto) 12.1 % (9.0-44.0) 11.8 % (9.0-44.0) Monocytes (%) (Auto) 8.6 % (0.0-8.0) 5.6 % (0.0-8.0) Eosinophils (%) (Auto) 0.1 % (0.0-4.0) 0.1 % (0.0-4.0) Basophils (%) (Auto) 0.6 % (0.0-2.0) 0.6 % (0.0-2.0) Neutrophils # (Auto) 16.3 TH/MM3 (1.8-7.7) 15.9 TH/MM3 (1.8-7.7) Lymphocytes # (Auto) 2.5 TH/MM3 (1.0-4.8) 2.3 TH/MM3 (1.0-4.8) Monocytes # (Auto) 1.8 TH/MM3 (0-0.9) 1.1 TH/MM3 (0-0.9) Eosinophils # (Auto) 0.0 TH/MM3 (0-0.4) 0.0 TH/MM3 (0-0.4) Basophils # (Auto) 0.1 TH/MM3 (0-0.2) 0.1 TH/MM3 (0-0.2) CBC Comment AUTO DIFF AUTO DIFF Differential Total Cells Counted 100 100 Neutrophils % (Manual) 70 % (16-70) 76 % (16-70) Band Neutrophils % 4 % (0-6) 2 % (0-6) Lymphocytes % 10 % (9-44) 13 % (9-44) Monocytes % 7 % (0-8) 4 % (0-8) Neutrophils # (Manual) 17.3 TH/MM3 (1.8-7.7) 16.1 TH/MM3 (1.8-7.7) Metamyelocytes 6 % (0-1) 3 % (0-1) Myelocytes 3 % (0-0) 2 % (0-0) Nucleated Red Blood Cells 1 /100 WBC (0-0) Differential Comment FINAL DIFF MANUAL FINAL DIFF MANUAL Platelet Estimate NORMAL (NORMAL) NORMAL (NORMAL) Platelet Morphology Comment NORMAL (NORMAL) NORMAL (NORMAL) Red Cell Morphology Comment NORMAL (NORMAL) NORMAL (NORMAL) Blood Urea Nitrogen 19 MG/DL (7-18) Creatinine 0.74 MG/DL (0.50-1.00) Random Glucose 114 MG/DL (74-106) Calcium Level 8.8 MG/DL (8.5-10.1) Magnesium Level 2.3 MG/DL (1.5-2.5) Sodium Level 138 MEQ/L (136-145) Potassium Level 3.9 MEQ/L (3.5-5.1) Chloride Level 100 MEQ/L (98-107) Carbon Dioxide Level 28.4 MEQ/L (21.0-32.0) Anion Gap 10 MEQ/L (5-15) Estimat Glomerular Filtration Rate 77 ML/MIN (>89) Result Diagram: 12/16/17 0454 12/15/17 0620 Imaging Last Impressions Chest X-Ray 12/15/17 0800 Signed Impressions: CONCLUSION: Hyperinflation which can be seen with COPD. No infiltrate. Assessment and Plan Disease Oriented Problem List: (1) Hypoxia (2) COPD exacerbation (3) Dyspnea and respiratory abnormalities (4) CAD (coronary artery disease) (5) PVD (peripheral vascular disease) (6) Hypertension Symptom Scale: (1) Dyspnea 0-10 Scale: 9 (2) Pain 0-10 Scale: 3 (3) Anxiety 0-10 Scale: 7 Pertinent Non-Medical Issues Psychosocial: Patient originally from [place], moved to [place] 17 years ago. She is , has 4 children: Daughters Kacie Harris and Precious, son Carlos. 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 No service. Spiritual: No mosque affiliation. Legal: No advance directives completed. Ethical issues impacting care: No ethical issues identified. . Important Contacts Daughter Kacie Aguilera Daughter Kimberly Draper . Daughter Precious Son Carlos . Prognosis Ms. Stephen is a 72-year-old female with a medical history significant for end-stage COPD, CAD status post stents, severe PVD, hyperlipidemia, hypertension , GERD, anxiety and depression. Patient with progressive decline and recent multiple acute COPD exacerbations with bronchitis and pneumonia. Patient end- stage COPD with multiple ongoing chronic comorbidities, remains at a very high risk for further complications, continued decline and . . Code Status: Full Code Plan * CODE STATUS: Full code. (*Discussed upon initial consultation with patient and daughter Kacie) * HEALTHCARE DECISION-MAKING: Patient participating in medical decision making. She appears to have a fair understanding of her clinical condition, prognosis. Appears to retain the ability to weight benefits vs burdens of treatment options. No advance directives completed. Patient is . As per [place] statue, healthcare proxy decision making falls to the majority of patient's children for which she has 4: Kacie Harris, Precious and Carlos. Patient interested in completing living will/designation of healthcare surrogate, forms left at bedside for further review as per her request. 12/16 again offered patient assistance with designating healthcare surrogate she declined. * GOALS OF CARE: Patient electing continuation of aggressive management to include full code. Upon initial consultation palliative reviewed likely illness trajectory in the setting of end-stage COPD with multiple recent acute exacerbations, bronchitis. Patient reports that within the past 2 months, she has been feeling "very sick". Patient upon initial consultation receptive to ongoing discussions. At my follow-up today on 12/16 she is tearful, does not desire follow-up family meeting at this time indicates she is still processing information, and she is overwhelmed with "everyone coming out her saying that she is end-stage and dying ". * SYMPTOMS: =Dyspnea. End-stage COPD with multiple recent exacerbations. Currently on Solu-Medrol, duo nebs and antibiotic treatment. Remains O2 via nasal cannula 1.5-2 L, May require walk test. Pulmonology following. Subjectively endorses breathing feels no better or worse than usual. =Anxiety: Exacerbated by shortness of breath and Solu-Medrol. Patient reports that she is very sensitive to steroids causing restlessness and shakiness. Lorazepam 1 mg every 6 hours [id number]. She is tearful and anxious during my visit today. She may require longer-term anxiety management PRN in addition to scheduled effexor =Pain: History of chronic pain, fibromyalgia. Denies pain during my visit. * Living will and designation of healthcare surrogate introduced to patient and daughter Kacie. Forms left at bedside as per their request. 12/16 she does not elect to complete them at this time * Palliative care contact information has been provided to patient and family. * Palliative care will continue to follow up for further clarification of goals of care as patient's clinical course continues to evolve. . Time Spent Total Floor Time (mins): 25 (Chart review, PE, discussion with patient) Attestation To help prompt me to consider important information that might be impacting today's encounter and assessment, information from prior notes written by myself or my colleagues may have been "brought forward" into today's note. My signature on this note, however, is an attestation that I personally performed the exam, history, and/or decision-making noted today, and, unless otherwise indicated, the interactions with patient, family, and staff as well as the review of records all occurred today. I also attest that the listed assessment and stated plan reflect my best clinical judgment today based on the combination of historical information, prior notes, and today's exam/ interactions. When time spent is documented, it refers only to time spent today by the signer, or if indicated, combined time spent today by collaborating physician/nurse practitioner. Jesusita Urena December 16, 2017 18:38
--- NOTE | 2017-12-16 19:46 | HHI.PR ---
Subjective Remarks Still has wheezing. No chest pain. No fever. On Nebs q6h.. feels anxious.C/O Leg pains. Objective Vital Signs Date Time Temp Pulse Resp B/P (MAP) Pulse Ox O2 Delivery O2 Flow Rate FiO2 12/16/17 16:00 98.8 109 19 157/65 (95) 95 12/16/17 12:00 97.5 98 18 138/74 (95) 96 12/16/17 09:00 95 Nasal Cannula 1.50 12/16/17 08:00 97.8 83 19 124/60 (81) 92 12/16/17 00:00 97.6 92 22 143/89 (107) 94 12/15/17 22:00 Nasal Cannula 3.00 12/15/17 21:19 93 Nasal Cannula 2.00 12/15/17 20:00 97.5 99 22 138/76 (96) 93 I/O 12/15/17 12/15/17 12/15/17 12/16/17 12/16/17 12/16/17 07:00 15:00 23:00 07:00 15:00 23:00 Intake Total 710 ml 780 ml 490 ml 820 ml Balance 710 ml 780 ml 490 ml 820 ml Intake Oral 360 ml 680 ml 240 ml 820 ml IV Total 350 ml 100 ml 250 ml # Voids 2 4 2 4 # Bowel Movements 0 0 1 Result Diagram: 12/16/17 0454 12/15/17 0620 Objective Remarks GENERAL: This is an averagely built, elderly lady who is alert. No lymphadenopathy. HEENT: Head is normocephalic. Pupils are reactive. Tongue is moist. Throat was injected. Nasal mucosa edematous. NECK: Supple, no bruits or thyroid enlargement or lymphadenopathy. CHEST: Distant breath sounds with wheezes over both lung walker. HEART: The heart sounds are irregular S1 and S2 with no murmur. No S3. ABDOMEN: Soft, protuberant without masses. No organomegaly or tenderness. Bowel sounds are active. EXTREMITIES: No lesions, no edema. Peripheral pulses are not well felt. There is no calf tenderness on either side. NEUROLOGIC: Reflexes are 1+ with no gross motor deficits. Cranial nerves grossly intact. SKIN: No lesions. Assessment and Plan Assessment and Plan ASSESSMENT: 1. Chronic obstructive pulmonary disease with acute exacerbation. 2. Bronchospasm and asthmatic bronchitis. 3. Severe peripheral vascular disease. 4. Hypertension. 5. Anxiety. Plan : 1. Cont Nebs q6h , Duoneb 2. Continue antibiotics, Rocephin 3. O2 at 2 L. 4. Solumedrol 40 mg IV Q8H 5. Ativan .5 mg PRN for anxiety. 6. Continue Breo 100/25 mcg , 1 puff daily. 7. Theophylline 200 mg daily 8. BMP, Jonh level in am Guillermo Li MD December 16, 2017 19:46
[2017-12-16] MEDS: ATORVASTATIN 40 MG TAB PO SCH (22:13)
[2017-12-16] MEDS: cefTRIAXone INJ 1,000 MG in SODIUM CHLORIDE 0.9% INJ 100 ML IV SCH (22:14)
[2017-12-16] MEDS: methylPREDNISolone SOD SUCC 40 MG/1 ML VIAL IV PUSH SCH (22:14)
[2017-12-16] MEDS: AZITHROMYCIN INJ 500 MG in SODIUM CHLOR 0.9% 250 ML INJ 250 ML IV SCH (22:59)
[2017-12-17] VITALS (7 sets, daily range): BP systolic 116–165; BP diastolic 61–87; PULSE 88–106; RESP 18–19; TEMP 97.5–98.1; O2SAT 92–97
[2017-12-17] MEDS: LORazepam 0.5 MG TAB PO SCH ×4 (00:23→18:00)
[2017-12-17] MEDS: ACETAMINOPHEN 500 MG CPLT PO PRN (00:34)
[2017-12-17] MEDS: RESP: ALBUTEROL 2.5 MG/IPRATROPIUM 0.5 MG NEB (SCH) NEB ×4 (03:05→20:43)
[2017-12-17] MEDS: methylPREDNISolone SOD SUCC 40 MG/1 ML VIAL IV PUSH SCH ×4 (06:00→21:50)
[2017-12-17] MEDS: RESP: BUDESONIDE 0.5 MG/2 ML NEB NEB SCH ×2 (07:38→20:43)
[2017-12-17] MEDS: FLUTICASONE 100 MCG/VILANTEROL 25 MCG INHALER INH SCH (09:00)
[2017-12-17] MEDS: VENLAFAXINE HCL XR 75 MG CAP PO SCH (09:21)
[2017-12-17] MEDS: amLODIPine BESYLATE 5 MG TAB PO SCH (09:21)
[2017-12-17] MEDS: ENOXAPARIN SODIUM 40 MG/0.4 ML SYRINGE SQ SCH (09:21)
[2017-12-17] MEDS: ASPIRIN 81 MG CHEW TAB CHEW SCH (09:22)
[2017-12-17] MEDS: PANTOPRAZOLE SOD 20 MG DELAYED RELEASE TAB PO SCH (09:22)
[2017-12-17] MEDS: THEOPHYLLINE 200 MG EXTENDED RELEASE CAP PO SCH (09:22)
--- NOTE | 2017-12-17 09:52 | HHI.PR ---
Subjective Remarks No new complaints Pt reports feeling anxious when she gets her breathing treatments but otherwise does not feel overly anxious She is still on 2-3L of supplemental O2 She has not tried to get up and move around yet this morning. Objective Vitals Vital Signs Date Time Temp Pulse Resp B/P (MAP) Pulse Ox O2 Delivery O2 Flow Rate FiO2 12/17/17 08:00 97.9 88 19 145/79 (101) 97 12/17/17 08:00 97 3.00 12/17/17 07:41 96 Nasal Cannula 2.00 12/17/17 00:00 98.1 91 18 165/87 (113) 92 12/16/17 22:00 Nasal Cannula 3.00 12/16/17 21:00 97 Nasal Cannula 1.50 12/16/17 20:00 97.9 97 18 127/71 (89) 95 12/16/17 16:00 98.8 109 19 157/65 (95) 95 12/16/17 12:00 97.5 98 18 138/74 (95) 96 Result Diagram: 12/16/17 0454 12/15/17 0620 Other Results Laboratory Tests Test 12/16/17 04:54 White Blood Count 19.4 TH/MM3 Red Blood Count 4.66 MIL/MM3 Hemoglobin 14.7 GM/DL Hematocrit 43.7 % Mean Corpuscular Volume 93.9 FL Mean Corpuscular Hemoglobin 31.6 PG Mean Corpuscular Hemoglobin Concent 33.6 % Red Cell Distribution Width 12.8 % Platelet Count 406 TH/MM3 Mean Platelet Volume 7.9 FL Neutrophils (%) (Auto) 81.9 % Lymphocytes (%) (Auto) 11.8 % Monocytes (%) (Auto) 5.6 % Eosinophils (%) (Auto) 0.1 % Basophils (%) (Auto) 0.6 % Neutrophils # (Auto) 15.9 TH/MM3 Lymphocytes # (Auto) 2.3 TH/MM3 Monocytes # (Auto) 1.1 TH/MM3 Eosinophils # (Auto) 0.0 TH/MM3 Basophils # (Auto) 0.1 TH/MM3 CBC Comment AUTO DIFF Differential Total Cells Counted 100 Neutrophils % (Manual) 76 % Band Neutrophils % 2 % Lymphocytes % 13 % Monocytes % 4 % Neutrophils # (Manual) 16.1 TH/MM3 Metamyelocytes 3 % Myelocytes 2 % Differential Comment FINAL DIFF MANUAL Platelet Estimate NORMAL Platelet Morphology Comment NORMAL Red Cell Morphology Comment NORMAL Imaging Last Impressions Chest X-Ray 12/15/17 0800 Signed Impressions: CONCLUSION: Hyperinflation which can be seen with COPD. No infiltrate. Last 24 hours Impressions Chest X-Ray 12/10/17 1611 Signed Impressions: CONCLUSION: 1. COPD with no focal or acute pulmonary infiltrates. 2. Stable exam. No significant change compared to 2017. Objective Remarks GENERAL: This is a well-nourished, well-developed patient, appears less anxious today CARDIO: Regular rate and rhythm RESP: decreased through out with end expiratory wheezing. ABD: +BS, soft, non-tender, nondistended. EXT: Extremities without clubbing, cyanosis, or edema. A/P Problem List: (1) COPD exacerbation ICD Codes: J44.1 - Chronic obstructive pulmonary disease with (acute) exacerbation Status: Acute Plan: COPD exacerbation - 72-year-old female with history of COPD presents for evaluation of cough, sore throat and dyspnea and wheezing. Symptoms started 3 days ago. She reports that she had a prescription for prednisone and azithromycin from her previous visit with her primary care physician she began using this when symptoms started. - Patient is receiving azithromycin and Rocephin will continue - Continue duonebs Q6H and as needed - Continue budesonide neb Q12H - Continue solu medrol 60 mg IV Q6H - CXR reviewed COPD with no focal or acute pulmonary infiltrate. Stable exam. No significant change compared to 2017 - Supplemental oxygen as needed to maintain saturation above 92% - Continue Breo Ellipta - 2D echocardiogram (12/12/17): Normal left ventricular size. Wall thickness is normal. Estimated ejection fraction in the range of 60-65%. Trace mitral valve regurgitation. Aortic valve sclerosis is present. The pulmonary valve is not well visualized. - Pulmonary medicine is following. - Dr. Johnson discussed case with patient's daughter over the phone (12/14 and ) - Per patient request I updated patient's daughter Kacie Aguilera (12/16) - Appreciate consult from palliative care. Patient would like to continue aggressive care and remain a full code at this time. Hypoxia - Emergency department initially plan to discharge patient but when she stood up oxygen saturation reduced to 89% and patient was symptomatic with shortness of breath - may need oxygen walk test when it gets closer to discharge Anxiety - Ativan 1 mg PO Q6H, hold for sedation - Effexor to 300 mg daily HTN (hypertension) - Amlodipine 5 mg PO daily added on 12/15/17 - BP more stable - Continue to monitor DVT prophylaxis with SCDs and Lovenox (2) Hypoxia ICD Codes: R09.02 - Hypoxemia Status: Acute (3) Anxiety ICD Codes: F41.9 - Anxiety disorder, unspecified Assessment and Plan Patient examined. Assessment and plan formulated with Ryanne Acosta PA-C. I agree with the above. severe copd. not responding to therapy daughters interested in hospice place consult with hospice today. Ryanne Acosta December 17, 2017 09:52 Terrell Louis MD December 17, 2017 15:07
--- NOTE | 2017-12-17 18:35 | HHI.PR ---
Subjective Remarks Less wheezing. SOB with exertion No fever. On Nebs q6h.. feels anxious. C/O Leg pains. Objective Vital Signs Date Time Temp Pulse Resp B/P (MAP) Pulse Ox O2 Delivery O2 Flow Rate FiO2 12/17/17 16:00 97.5 106 18 116/63 (80) 94 12/17/17 12:00 97.9 97 18 131/61 (84) 95 12/17/17 08:00 97.9 88 19 145/79 (101) 97 12/17/17 08:00 97 3.00 12/17/17 07:41 96 Nasal Cannula 2.00 12/17/17 00:00 98.1 91 18 165/87 (113) 92 12/16/17 22:00 Nasal Cannula 3.00 12/16/17 21:00 97 Nasal Cannula 1.50 12/16/17 20:00 97.9 97 18 127/71 (89) 95 I/O 12/16/17 12/16/17 12/16/17 12/17/17 12/17/17 12/17/17 07:00 15:00 23:00 07:00 15:00 23:00 Intake Total 490 ml 920 ml 500 ml Balance 490 ml 920 ml 500 ml Intake Oral 240 ml 820 ml 500 ml IV Total 250 ml 100 ml # Voids 2 4 1 4 # Bowel Movements 0 1 0 Result Diagram: 12/16/17 0454 12/15/17 0620 Objective Remarks GENERAL: This is an averagely built, elderly lady who is alert. No lymphadenopathy. HEENT: Head is normocephalic. Pupils are reactive. Tongue is moist. Throat was injected. Nasal mucosa clear. NECK: Supple, no bruits or thyroid enlargement or lymphadenopathy. CHEST: Distant breath sounds with wheezes over both lung walker. HEART: The heart sounds are irregular S1 and S2 with no murmur. No S3. ABDOMEN: Soft, protuberant without masses. No organomegaly or tenderness. Bowel sounds are active. EXTREMITIES: No lesions, no edema. Peripheral pulses are not well felt. There is no calf tenderness on either side. NEUROLOGIC: Reflexes are 1+ with no gross motor deficits. Cranial nerves grossly intact. SKIN: No lesions. Assessment and Plan Assessment and Plan ASSESSMENT: 1. Chronic obstructive pulmonary disease with acute exacerbation. 2. Bronchospasm and asthmatic bronchitis. 3. Severe peripheral vascular disease. 4. Hypertension. 5. Anxiety. Plan : 1. Cont Nebs q6h , Duoneb 2. Continue antibiotics, Rocephin 3. O2 at 2 L. 4. Solumedrol 40 mg IV Q6H 5. Ativan .5 mg PRN for anxiety. 6. Continue Breo 100/25 mcg , 1 puff daily. 7. Theophylline 200 mg daily 8. Palliative care to see. Guillermo Li MD December 17, 2017 18:35
[2017-12-17] MEDS: ATORVASTATIN 40 MG TAB PO SCH (21:49)
[2017-12-17] MEDS: cefTRIAXone INJ 1,000 MG in SODIUM CHLORIDE 0.9% INJ 100 ML IV SCH (21:49)
[2017-12-18] VITALS: BP 127/67; PULSE 105; RESP 20; TEMP 97.9; O2SAT 95
[2017-12-18] MEDS: RESP: ALBUTEROL 2.5 MG/IPRATROPIUM 0.5 MG NEB (SCH) NEB ×2 (03:52→09:53)
[2017-12-18] MEDS: LORazepam 0.5 MG TAB PO SCH ×2 (06:00)
[2017-12-18] MEDS: methylPREDNISolone SOD SUCC 40 MG/1 ML VIAL IV PUSH SCH (06:24)
[2017-12-18 08:00] VITALS: BP 123/71; PULSE 87; RESP 18; TEMP 97.9; O2SAT 95
[2017-12-18] MEDS: RESP: BUDESONIDE 0.5 MG/2 ML NEB NEB SCH (08:00)
[2017-12-18] MEDS ORDERED: AZITHROMYCIN 250 MG TAB PO SCH (09:00)
[2017-12-18] MEDS: amLODIPine BESYLATE 5 MG TAB PO SCH (09:18)
[2017-12-18] MEDS: ASPIRIN 81 MG CHEW TAB CHEW SCH (09:18)
[2017-12-18] MEDS: THEOPHYLLINE 200 MG EXTENDED RELEASE CAP PO SCH (09:18)
[2017-12-18] MEDS: PANTOPRAZOLE SOD 20 MG DELAYED RELEASE TAB PO SCH (09:18)
[2017-12-18] MEDS: VENLAFAXINE HCL XR 75 MG CAP PO SCH (09:18)
[2017-12-18] MEDS: FLUTICASONE 100 MCG/VILANTEROL 25 MCG INHALER INH SCH (09:19)
[2017-12-18] MEDS: ENOXAPARIN SODIUM 40 MG/0.4 ML SYRINGE SQ SCH (09:19)
[2017-12-18] MEDS ORDERED: Albuterol-Ipratropium Neb NEB (10:45)
[2017-12-18] MEDS ORDERED: Fluticason-Vilanter 100-25 Inh INH (10:45)
[2017-12-18] MEDS ORDERED: PRED10 PO (10:45)
[2017-12-18] MEDS ORDERED: THEO1CAP2 PO (10:45)
--- NOTE | 2017-12-18 10:45 | HHI.DCPOC ---
Discharge Care Plan Diagnosis: (1) COPD exacerbation Goals to Promote Your Health * To prevent worsening of your condition and complications * To maintain your health at the optimal level Directions to Meet Your Goals Take your medications as prescribed Follow your dietary instruction Follow activity as directed Keep your appointments as scheduled Take your immunizations and boosters as scheduled If your symptoms worsen call your PCP, if no PCP go to Urgent Care Center or Emergency Room Smoking is Dangerous to Your Health. Avoid second hand smoke Call the 24-hour hour crisis hotline for domestic abuse at Terrell Louis MD December 18, 2017 10:45
[2017-12-18] MEDS ORDERED: LORA-392 PO (12:23)
--- NOTE | 2017-12-18 13:25 | HHI.DS ---
Discharge Summary Admission Date December 10, 2017 at 18:19 Discharge Date: December 18, 2017 Admitting Diagnosis COPD exacerbation (1) COPD exacerbation Diagnosis: Principal ICD Codes: J44.1 - Chronic obstructive pulmonary disease with (acute) exacerbation Status: Acute (2) Hypoxia Diagnosis: Principal ICD Codes: R09.02 - Hypoxemia Status: Acute (3) Anxiety Diagnosis: Secondary ICD Codes: F41.9 - Anxiety disorder, unspecified Brief History 72-year-old female with history of COPD presents for evaluation of cough, sore throat and dyspnea and wheezing. Symptoms started 3 days ago. She reports that she had a prescription for prednisone and azithromycin from her previous visit with her primary care physician she began using this when symptoms started. Symptoms have persisted today which prompted evaluation. Cough is productive with yellow sputum. Symptoms are moderate, not alleviated with her at home Pro Air. She denies chest pain, abdominal pain, fevers or chills, nausea or vomiting. Patient was hypoxic in er and continued to be symptomatic despite treatment in ER will admit for further treatments and antibiotics. CBC/BMP: 12/16/17 0454 12/15/17 0620 Significant Findings Laboratory Tests Test 12/16/17 04:54 White Blood Count 19.4 TH/MM3 (4.0-11.0) Neutrophils (%) (Auto) 81.9 % (16.0-70.0) Neutrophils # (Auto) 15.9 TH/MM3 (1.8-7.7) Monocytes # (Auto) 1.1 TH/MM3 (0-0.9) Neutrophils % (Manual) 76 % (16-70) Neutrophils # (Manual) 16.1 TH/MM3 (1.8-7.7) Metamyelocytes 3 % (0-1) Myelocytes 2 % (0-0) PE at Discharge GENERAL: This is a well-nourished, well-developed patient, appears less anxious today CARDIO: Regular rate and rhythm RESP: decreased through out with end expiratory wheezing. ABD: +BS, soft, non-tender, nondistended. EXT: Extremities without clubbing, cyanosis, or edema. Hospital Course COPD exacerbation - 72-year-old female with history of COPD presents for evaluation of cough, sore throat and dyspnea and wheezing. Symptoms started 3 days ago. She reports that she had a prescription for prednisone and azithromycin from her previous visit with her primary care physician she began using this when symptoms started. - CXR reviewed COPD with no focal or acute pulmonary infiltrate. Stable exam. No significant change compared to 2017 - 2D echocardiogram (12/12/17): Normal left ventricular size. Wall thickness is normal. Estimated ejection fraction in the range of 60-65%. Trace mitral valve regurgitation. Aortic valve sclerosis is present. The pulmonary valve is not well visualized. - Pt admitted and treated aggressively with iv solumedrol, nebs, abx, theophylline. she was on breo also. She responded minimally and not back to prior baseline - she and family decided on a hospice/comfort care approach and will go home with hospice. Pt Condition on Discharge: Stable Discharge Disposition: Hospice/ Home Discharge Instructions DIET: Follow Instructions for: As Tolerated, No Restrictions Activities you can perform: Regular-No Restrictions New Medications: Prednisone (Prednisone) 10 Mg Tab 10 MG PO DIRECTED for copd for 30 Days, TAB 1 Refill 30mg po bid x 5 days, 20mg po bid x 5 days, 10mg po bid x 5 days, then 10mg po daily. Lorazepam (Ativan) 0.5 Mg Tab 0.5 MG PO Q6HR PRN for anxiety, #30 TAB Theophylline ER 24 HR (Jonh-24) 200 Mg Cap 200 MG PO DAILY for copd, #30 CAP [Albuterol-Ipratropium Neb] () 1 AMPULE NEBU 1 AMPULE NEB Q6HR NEB [Fluticason-Vilanter 100-25 Inh] () 14 PUFF INHP 1 PUFF INH DAILY Continued Medications: Aspirin (Aspirin) 81 Mg Chew 81 MG CHEW DAILY, TAB 0 Refills Omeprazole (Omeprazole) 20 Mg Tab 20 MG PO DAILY, #30 TAB 0 Refills Venlafaxine (Effexor) 75 Mg Tab 150 MG PO DAILY, #30 TAB 0 Refills Discontinued Medications: Atorvastatin (Atorvastatin) 40 Mg Tab 40 MG PO HS for Cholesterol Management, #30 TAB 0 Refills Cholecalciferol (Vitamin D) 2,000 Unit Cap CAP Prednisone (21) 10 mg tab Dose Pack (Prednisone (21) 10 mg tab Dose Pack) 10 Mg Pack 10 MG PO DIRECTED for Inflammation, #1 DSPK 0 Refills Terrell Louis MD December 18, 2017 13:25
--- NOTE | 2017-12-22 08:52 | RSPPFT ---
DATE OF PROCEDURE: 12/16/17 COMMENTS: Spirometry demonstrates an FEV1 of 0.7 at 34% of predicted, FVC of 1.5 at 58%, FEV1/FVC ratio at 46%. The FEF 25-75 is 13% of predicted. Post-bronchodilator study demonstrated minimal improvements in the FVC. Lung volumes were not conducted. Flow volume loop suggests severe obstruction. IMPRESSION: 1. Severe obstructive disease. 2. Mild response to use of bronchodilator indicating some reversibility.
== END 2017-12-18 13:11 | disposition hospice, home (50) ==
LOC: NEPC 15:59 → INTOOBSV 18:19 → NEDA 18:19 → NEPHCDU 20:28 → N07A 12-13 18:26
PROVIDERS: ADMIT Hospitalist; ATTEND Hospitalist
DX: J44.1 Chronic obstructive pulmonary disease with (acute) exacerbation (principal); J02.9 Acute pharyngitis, unspecified; E78.00 Pure hypercholesterolemia, unspecified; K21.9 Gastro-esophageal reflux disease without esophagitis; I25.10 Atherosclerotic heart disease of native coronary artery without angina pectoris; I10 Essential (primary) hypertension; I49.3 Ventricular premature depolarization; R09.02 Hypoxemia; I73.9 Peripheral vascular disease, unspecified; F41.9 Anxiety disorder, unspecified; F41.8 Other specified anxiety disorders; M79.7 Fibromyalgia; E55.9 Vitamin D deficiency, unspecified; Z87.891 Personal history of nicotine dependence
CPT/HCPCS: 36600; 71045; 71046; 80048; 82550; 82805; 83735; 84484; 85007; 85025; 85027; 93005; 93306; 94060; 94640; 94664; 96361; 96365; 96366; 96367; 96368; 96372; 96375; 96376; 99285; G0378; J0456; J0696; J1650; J2920; J2930; J7030; J7050; J7626; 96374